=== PATIENT | female | born 1945 | race Caucasian/White ===

== ENCOUNTER 2019-06-30 13:59 | Observation (INO) | payer MEDICARE, BC, SELFPAY | END 2019-07-01 18:20 | disposition home or self-care (01) | PROVIDERS: Admitting Provider Family Medicine; Emergency Provider Emergency Medicine; PCP Family Medicine; Visit Provider Hospitalist | DX: R42 Dizziness and giddiness (principal); I10 Essential (primary) hypertension; E03.9 Hypothyroidism, unspecified; E78.5 Hyperlipidemia, unspecified; G89.29 Other chronic pain; M54.2 Cervicalgia; J45.909 Unspecified asthma, uncomplicated; G47.30 Sleep apnea, unspecified; Z79.82 Long term (current) use of aspirin; Z79.899 Other long term (current) drug therapy | CPT/HCPCS: 36415; 70450; 70553; 71046; 80048; 80053; 80061; 81001; 83036; 84443; 85025; 87086; 93005; 93306; 96360; 96361; 96374; 96375; 99285; A9270; A9577; G0378; J0360; J2405; J7030; J7120 ==

== ENCOUNTER 2020-06-30 10:58 | Observation (INO) | payer MEDICARE, BC, SELFPAY ==
[2020-06-30] VITALS (10 sets, daily range): BP systolic 120–152; BP diastolic 56–88; PULSE 41–102; RESP 16–22; TEMP 36.6–36.8; O2SAT 93–98; BMI 25.4
--- NOTE | ~2020-06-30 | XR_ITS ---
EXAMINATION: XR chest 2V DATE: 06/30/2020 11:50 INDICATION: Dizziness. TECHNIQUE: Frontal and lateral views of the chest were obtained. COMPARISON: Chest 2 views 06/30/2019, CT abdomen and pelvis 07/09/2016 FINDINGS: The chest demonstrates clear lungs without pneumonia, pleural effusion, or pneumothorax. Th e heart size is normal. IMPRESSION: 1. No acute cardiopulmonary disease. Reviewed, dictated and finalized at location A.
--- NOTE | ~2020-06-30 | CT_ITS ---
EXAMINATION: CT brain wo con DATE: 06/30/2020 11:50 INDICATION: Dizziness. TECHNIQUE: Computed tomography (CT) of the head was performed without intravenous contrast. The mA wa s adjusted according to patient size. Iterative reconstruction technique was employed. The dose-lengt h product was 605.33 mGy-cm. COMPARISON: Head CT 06/30/2019, brain MRI 07/01/2019 FINDINGS: There is no intracranial hemorrhage, acute infarction, or abnormal intracranial mass lesion . The ventricles are normal in size. There is mild mucosal thickening in the paranasal sinuses. The m astoid air cells are normal. IMPRESSION: 1. Normal brain. Reviewed, dictated and finalized at location A. IMPRESSION: 1. Normal brain.
--- NOTE | ~2020-06-30 | US_ITS ---
EXAMINATION: US carotid duplex BI DATE: 07/01/2020 09:59 INDICATION: Dizziness. TECHNIQUE: Grayscale, color Doppler, and pulsed Doppler images of the cervical carotid arteries were obtained. The degree of vessel stenosis is placed in one of the following categories: normal, <50%, 5 0-69%, >=70% but less than near-occlusion, near-occlusion, or total occlusion. Note that percent sten osis relative to normal distal artery lumen diameter is indirectly measured from velocity measurement s as described by Vern, et al. Radiology 2003; 229:340-346. COMPARISON: Ultrasound 09/13/2017 FINDINGS: RIGHT: The right common carotid artery (CCA) peak systolic velocity (PSV) is 77 cm/s. The right internal car otid artery (ICA) PSV is 93 cm/s. The right ICA end-diastolic velocity (EDV) is 26 cm/s. The right IC A/CCA PSV ratio is 1.2. Grayscale and color Doppler images yield an estimate of <50% diameter reducti on from plaque in the ICA. There is antegrade flow in the right vertebral artery. LEFT: The left CCA PSV is 84 cm/s. The left ICA PSV is 161 cm/s. The left ICA EDV is 39 cm/s. The left ICA/ CCA PSV ratio is 1.9. Grayscale and color Doppler images yield an estimate of <50% diameter reduction from plaque in the ICA. There is antegrade flow in the left vertebral artery. IMPRESSION: 1. <50% stenosis in the right internal carotid artery. 2. <50% stenosis in the left internal carotid artery. Reviewed, dictated and finalized at location A.
--- NOTE | ~2020-06-30 | MR_ITS ---
EXAMINATION: MR brain/brain stem wo con DATE: 07/01/2020 09:57 INDICATION: Dizziness. TECHNIQUE: Magnetic resonance imaging (MRI) of the brain and brainstem was performed without intraven ous contrast. Sequences included sagittal and axial T1-weighted FSE, axial diffusion-weighted FS EPI, axial T2*-weighted GRE, axial T2-weighted FLAIR Propeller, and axial T2-weighted Propeller. Apparent diffusion coefficient (ADC) maps were created. COMPARISON: Brain MRI 07/01/2019, head CT 06/30/2020 FINDINGS: There is no intracranial hemorrhage, acute infarction, or abnormal intracranial mass lesion . There are a few foci of nonspecific increased T2-weighted signal intensity in the cerebral white ma tter, which is within normal limits for the patient's age. The ventricles are normal in size there is mild mucosal thickening in the paranasal sinuses. There are likely changes of ocular lens replacemen t surgeries. The mastoid air cells are normal. . IMPRESSION: 1. Normal brain. Reviewed, dictated and finalized at location A. IMPRESSION: 1. Normal brain.
--- NOTE | 2020-06-30 11:06 | ECG_ITS ---
Measurements Intervals [place] Rate: 75 P: 58 CA: 144 QRS: 3 QRSD: 97 T: 60 QT: 423 QTc: 473 Interpretive Statements SINUS RHYTHM FREQUENT ATRIAL PREMATURE COMPLEXES ABNORMAL ECG Electronically Signed On 06-30-2020 15:26:31 CDT by Jonh Wan D.O.
--- NOTE | 2020-06-30 11:18 | ED.DIZZY ---
HPI - Dizziness General Chief Complaint: Dizziness <LUCILA Sams Last Filed: 06/30/20 14:57> Stated Complaint: dizziness <LUCILA Sams Last Filed: 06/30/20 14:57> Time Seen by Provider: 06/30/20 11:06 <LUCILA Sams Last Filed: 06/30/20 14:57> Source: patient and family <LUCILA Sams Last Filed: 06/30/20 14:57> Mode of arrival: wheelchair <LUCILA Sams Last Filed: 06/30/20 14:57> Limitations: no limitations <LUCILA Sams Last Filed: 06/30/20 14:57> History of Present Illness HPI Narrative: This is a 74-year-old female that presents the emergency department for dizziness since 2 this morning. Reports she woke up to go to the restroom in the middle of the night. Reports she was having trouble ambulating due to dizziness. Reports she tried to rest in hopes that it would go away. Reports it has been constant. Reports she feels unsteady on her feet. Reports she has had trouble with dizziness in the past and is seen an ENT doctor. Is unsure what her diagnosis was. Denies fever, chest pain, shortness of breath, palpitations, vision changes, vomiting, numbness, or weakness. <LUCILA Sams Last Filed: 06/30/20 14:57> Related Data Home Medications: Home Medications Medication Instructions Recorded Confirmed albuterol sulfate 90 mcg/actuation 1 inhalation INHALATION Q4H 10/27/19 aerosol inhaler atorvastatin 20 mg tablet 20 mg PO DAILY 10/27/19 meclizine 25 mg tablet 25 mg PO BID 10/27/19 metoprolol succinate PO 06/30/20 06/30/20 <LUCILA Sams Last Filed: 06/30/20 14:57> Allergies/Adverse Reactions: Allergies Allergy/AdvReac Type Severity Reaction Status Date / Time adhesive Allergy Mild Rash Verified 06/30/20 11:08 benoxinate Allergy Mild UNKNOWN Verified 06/30/20 11:08 fluorescein Allergy Mild UNKNOWN Verified 06/30/20 11:08 gemfibrozil Allergy Mild PATIENT Verified 06/30/20 11:08 COULDN'T REMEMBER iodine Allergy Mild Swelling Verified 06/30/20 11:08 iodine Allergy Mild Swelling Verified 06/30/20 11:08 latex Allergy Mild Rash Verified 06/30/20 11:08 potassium iodide Allergy Mild Swelling Verified 06/30/20 11:08 potassium iodide Allergy Mild Swelling Verified 06/30/20 11:08 prochlorperazine Allergy Unknown Muscle Verified 06/30/20 11:08 Spasms <Trista Chau PA-C - Last Filed: 06/30/20 14:57> Review of Systems Review of Systems: Narrative: CONSTITUTIONAL: Denies fever EYES: Denies visual changes CARDIOVASCULAR: Denies chest pain, palpitations, or edema. RESPIRATORY: Denies dyspnea. GASTROINTESTINAL: Denies vomiting NEUROLOGIC: Denies numbness, or weakness. <Trista Chau PA-C - Last Filed: 06/30/20 14:57> All systems reviewed & are unremarkable except as noted in HPI and below <Trista Chau PA-C - Last Filed: 06/30/20 14:57> [facility], [facility] Social History Social History: Social History Smoking status: Never smoker Second hand tobacco smoke exposure: No Alcohol intake: never Gender identity (if verbalized by the patient): Female <Trista Chau PA-C - Last Filed: 06/30/20 14:57> Exam Narrative: Exam Narrative: GENERAL: Well-appearing, well-nourished, and in no acute distress. HEAD: Normocephalic, atraumatic. EYES: PERRLA and EOMI. ENT: Nares clear, no rhinorrhea or epistaxis. Mucous membranes moist. Oropharynx without tonsillar hypertrophy exudate or other lesions. Bilateral TMs pearly kumar non-bulging NECK: Supple. No adenopathy or masses. CHEST: Clear to auscultation. No respiratory distress. No wheezes rales or rhonchi HEART: Regular rate and rhythm. No murmur heard. Normal peripheral pulses. EXTREMITIES: Normal range of motion. No edema. Strength equal in bilateral upper and lower extremities (4/5) SKIN: Warm, dry, no rash. NEURO: No focal deficits. Alert and oriented x3. Cr
[2020-06-30] MEDS: SODIUM CHLORIDE 0.9% IV 1,000 ML 999 ML IV CONT (11:46)
[2020-06-30] MEDS: ONDANSETRON INJ 4 MG/2 ML VIAL IV PUSH (11:46)
[2020-06-30] MEDS: MECLIZINE HCL 25 MG TABLET PO (11:46)
[2020-06-30 11:47] LABS: Basophils Absolute Auto 0.1 K/mm3 (0.0-0.1); Basophils Percent Auto 0.8 % (0.2-1.2); Eosinophils Absolute Auto 0.3 K/mm3 (0-0.3); Eosinophils Percent Auto 3.9 % (0-4.4); Hematocrit 35.8 % (37.0-47.0); Hemoglobin 11.8 g/dL (12.0-15.0); Immature Granulocyte Absolute 0.04 K/mm3 (0.00-0.031); Immature Granulocyte Percent A 0.6 % (0-0.5); Lymphocytes Absolute Auto 1.94 K/mm3 (0.9-3.2); Lymphocytes Percent Auto 26.7 % (18.3-44.2); Mean Corpuscular Hemoglobin 32.2 pg (26-34); Mean Corpuscular Volume 97.8 fl (80-100); Mean Platelet Volume 11.9 fl (7.4-10.4); Monocytes Absolute Auto 0.6 K/mm3 (0.1-0.6); Neutrophils Absolute Auto 4.4 K/mm3 (1.3-6.7); Platelet Count Result 266 k/mm3 (150-375); Red Blood Count 3.66 M/mm3 (4.2-5.4); White Blood Count 7.3 K/mm3 (4.5-10.0)
[2020-06-30 12:00] LABS: Alanine Aminotransferase 18 U/L (4-35); Albumin Level 4.5 g/dL (3.5-5.1); Alkaline Phosphatase 62 U/L (38-126); Anion Gap 7 mmol/L (8-16); Aspartate Amino Transferase 27 U/L (14-36); Bilirubin,Total 0.4 mg/dL (0.2-1.3); Blood Urea Nitrogen 22 mg/dL (7-17); Calcium 9.2 mg/dL (8.4-10.2); Carbon Dioxide 25 mmol/L (22-30); Chloride 104 mmol/L (98-107); Estimated CRCL calculation 34 ml/min; Estimated Glomerular Filt Rate 48; Glucose 126 mg/dL (65-105); Potassium 4.5 mmol/L (3.4-5.0); Sodium 136 mmol/L (137-145)
[2020-06-30 13:00] LABS: Add Urine Microscopic? NO; Appearance Urine Clear (Clear); Bilirubin Urine Negative (Negative); Blood Urine Negative (Negative); Color Urine Straw (Yellow); Glucose Urine UA Negative (Negative); Ketones Urine Negative (Negative); Leukocyte Esterase Ur Negative LEU/UL (Negative); Nitrate Urine Negative (Negative); Protein Urine Negative (Negative); Urobilinogen Urine Negative mg/dL (<2.0)
--- NOTE | 2020-06-30 15:45 | PC.NURSE ---
This patient, Madeline Mancera, was admitted to Medical Room 340-01. Patient/family oriented to hospital policies and general routines including ID bracelet, bed and alarms, visiting hours, pain management, procedures, bathroom and other care routines, personal items, smoking policy, room service/diet, and visiting hours. Valuables list has been completed. Information on how to activate the Rapid Response Team has been discussed. Patient/Family are encouraged to report perceived risks to care and to ask questions if they do not understand what they are told or what they should do.
--- NOTE | 2020-06-30 21:39 | PM.IMHP ---
H&P: HPI History of Present Illness Date/Time: 06/30/20 21:39 Chief complaint: Dizziness Narrative: Madeline Mancera is a 74 year old female Who came to the emergency room with complaints of dizziness that started about 2:00 a.m. this morning. The patient stated that she got up to go to the restroom in the middle and I and was having problem walking down the [place]. She said she is bouncing off the jerry. She thought she would just go back to sleep and tried to sleep it off. The patient had the exact same thing exactly 1 year ago today and had a full workup with her heart and I MRI which was negative at that time. The patient stated that she went to ENT after that and they clean out her ears was some hot air and that seem to work for her for the duration of this time. She stated that she had no problems until today. She stated that she has not had any new medications for at least the last month and a half. She said she did have some new medication that was started about a month and half ago and did seem to have any problems with that. She has no focal weakness no difficulty swallowing or difficulty in talking. The patient stated that her dizziness is worse whenever she gets up and walks are she moves her head. CT of the brain was found to be negative. The patient was given IV fluids, IV Zofran, Ativan, and IV Valium. The patient stated that the Valium work the best. She said when she is laying there and resting she does avidly problems is when she moves her head or gets up and walks that she starts to feel dizzy again. Chest x-ray was negative. Her labs were unremarkable except for slightly low hemoglobin of 11.8. Assessment approximately 45 minutes with the patient. Date of service is 06/30/2020. Review of Systems Review of Systems: All systems reviewed & are unremarkable except as noted in HPI and below Constitutional: Constitutional: Reports as per HPI and Reports no additional constitutional complaints Eyes: Eyes: Reports as per HPI and Reports no additional eye complaints ENT: Reports system reviewed and no additional complaints, except as documented and Reports Normal hearing present Cardiovascular: Cardiovascular: Reports no additional cardiovascular complaints Respiratory: Respiratory: Reports no additional respiratory complaints and Reports no additional respiratory complaints Gastrointestinal: Gastrointestinal: Reports as per HPI and Reports no additional gastrointestinal complaints Musculoskeletal: Musculoskeletal: Reports no additional musculoskeletal complaints Integumentary/Breasts: Skin/Breast: Reports system reviewed and no additional complaints, except as docu and Reports as per HPI Neurologic: Reports system reviewed and no additional complaints, except as documented, Reports as per HPI and Reports Normal hearing present Psychiatric: Psychiatric: Reports no additional psychiatric complaints and Reports as per HPI Endocrine: Endocrine: Reports no additional endocrine complaints Hematologic/Lymphatic: Hematologic/Lymphatic: Reports no additional hematologic/lymphatic complaints Allergic/Immunologic: Allergic/Immunologic: Reports no additional allergic/immunologic complaints [facility] Past Medical History Medical History (Updated 06/30/20 @ 22:00 by Addis Acevedo NP) Asthma Depression with anxiety Hyperlipidemia Hypertension Hypothyroidism Lumbar disc disease Normal colonoscopy (~2007) Obstructive sleep apnea Pre-diabetes Presence of neurostimulator in her back in the past. Sleep apnea this not use a CPAP. Ulcer Surgical History Surgical History (Updated 06/30/20 @ 21:47 by Addis Acevedo NP) H/O cataract extraction 2015 H/O: hysterectomy History of bladder suspension procedure x5 History of lumpectomy Family History Family History (Updated 06/30/20 @ 21:51 by Addis Acevedo NP) Mother Asthma Cerebrovascular accident Congestive heart failure Sibling Diabetes mellitus Other
[2020-06-30] MEDS: MECLIZINE HCL 6.25 MG TABLET PO (22:55)
[2020-07-01] VITALS: PULSE 59
--- NOTE | 2020-07-01 | ECHO_ITS ---
Patient Info Name: Madeline Mancera Age: 74 years : 1945 Gender: Female Ht: 64 in Wt: 148 lbs BSA: 1.75 m2 HR: 55 bpm BP: 138 / 53 mmHg Heart Rhythm: Bradycardia Technical Quality: Good Exam Date: 07/01/2020 11:07 AM Exam Location: [facility] Patient Status: Inpatient Admit Date: 06/30/2020 Staff Ordering Physician: Addis Acevedo NP Cell Maker: Lamont Grace RDCS Attending Provider: Pérez Mosley PA-C Referring Physician: Curtis KRAUS; Exam Type: CA echo doppler color flow Study Info Indications R42 - Dizziness and giddiness Complete two-dimensional, color flow and Doppler transthoracic echocardiogram is performed. Strain analysis performed. History/Risk Factors Dizziness; HTN. Summary 1. Left ventricular chamber dimension is normal. 2. Left ventricular systolic function is normal, estimated at 55-60%. 3. There is mild aortic valve sclerosis. 4. Compared to examination of June of 2019 there are no differences. Left Ventricle Left ventricular chamber dimension is normal. Left ventricular systolic function is normal, estimated at 55-60%. The left ventricular diastolic function is normal. Right Ventricle Right ventricular chamber dimension is normal. Left Atria Left atrial chamber dimension is normal. Right Atria Right atrial chamber dimension is normal. Aortic Valve The aortic valve is trileaflet. There is mild aortic valve sclerosis. Pulmonic Valve The pulmonic valve is normal. Mitral Valve The mitral valve has normal leaflets. Tricuspid Valve The tricuspid valve leaflets are normal. Pericardium/Pleural The pericardium appears normal. Aorta The aortic root size at the sinus of Valsalva is normal. Left Ventricular Outflow Tract Name Value Normal LVOT 2D LVOT Diameter 1.9 cm LVOT Doppler LVOT Peak Gradient 6 mmHg LVOT Mean Gradient 3 mmHg LVOT VTI 28 cm LVOT VTI/AV VTI Ratio 0.9 LVOT Stroke Volume 78 ml LVOT CO 4.0 l/min LVOT CI 2.3 l/min/m2 Mitral Valve Name Value Normal MV Doppler MV Decel Patrick 220 cm/s2 MV PHT 109 ms MV Area (PHT) 2.0 cm2 4.0-5.0 MV Diastolic Function MV E Peak Velocity 83 cm/s MV A Peak Velocity 94 cm/s MV E/A 0.9 MV Decel Time 375 ms MV Annular TDI MV E/e' (Sep
[2020-07-01 04:00] VITALS: PULSE 43
[2020-07-01 05:59] VITALS: BP 146/64; PULSE 50; RESP 16; TEMP 36.3; O2SAT 100
[2020-07-01 06:08] VITALS: BP 146/64
[2020-07-01 06:09] VITALS: BP 138/108; BP 138/53
[2020-07-01 06:09] LABS: Basophils Percent Auto 0.6 % (0.2-1.2); Eosinophils Absolute Auto 0.5 K/mm3 (0-0.3); Eosinophils Percent Auto 6.8 % (0-4.4); Hematocrit 33.7 % (37.0-47.0); Immature Granulocyte Absolute 0.02 K/mm3 (0.00-0.031); Immature Granulocyte Percent A 0.3 % (0-0.5); Lymphocytes Absolute Auto 2.84 K/mm3 (0.9-3.2); Lymphocytes Percent Auto 41.3 % (18.3-44.2); Mean Corpuscular HGB Conc 32.6 g/dl (32-36); Mean Corpuscular Hemoglobin 32.4 pg (26-34); Mean Corpuscular Volume 99.4 fl (80-100); Mean Platelet Volume 11.5 fl (7.4-10.4); Monocytes Absolute Auto 0.6 K/mm3 (0.1-0.6); Monocytes Percent Auto 8.6 % (2.6-8.5); Neutrophils Absolute Auto 2.9 K/mm3 (1.3-6.7); Neutrophils Percent Auto 42.4 % (45.5-73.1); Platelet Count Result 217 k/mm3 (150-375); Red Blood Count 3.39 M/mm3 (4.2-5.4); White Blood Count 6.9 K/mm3 (4.5-10.0)
[2020-07-01] MEDS: LEVOTHYROXINE SODIUM 88 MCG TABLET PO (06:11)
[2020-07-01 06:23] LABS: Alanine Aminotransferase 14 U/L (4-35); Albumin Level 3.7 g/dL (3.5-5.1); Alkaline Phosphatase 48 U/L (38-126); Anion Gap 3 mmol/L (8-16); Aspartate Amino Transferase 22 U/L (14-36); Bilirubin,Total 0.3 mg/dL (0.2-1.3); Blood Urea Nitrogen 17 mg/dL (7-17); Calcium 8.9 mg/dL (8.4-10.2); Carbon Dioxide 29 mmol/L (22-30); Chloride 108 mmol/L (98-107); Estimated CRCL calculation 34 ml/min; Estimated Glomerular Filt Rate 48; Glucose 95 mg/dL (65-105); Sodium 140 mmol/L (137-145)
[2020-07-01 07:00] LABS: Thyroid Stimulating Hormone Reflex 0.494 uIU/mL (0.465-4.68)
[2020-07-01 08:00] VITALS: PULSE 59
[2020-07-01] MEDS: lisinopriL 10 MG TABLET PO (08:24)
[2020-07-01] MEDS: ASPIRIN 81 MG ENTERIC TABLET PO (08:24)
[2020-07-01] MEDS: FENOFIBRATE,MICRONIZED 48 MG TABLET PO (08:24)
[2020-07-01] MEDS: valACYclovir HCL 500 MG TABLET PO (08:25)
[2020-07-01] MEDS: MECLIZINE HCL 6.25 MG TABLET PO ×2 (08:25→12:06)
[2020-07-01] MEDS: MONTELUKAST SODIUM 10 MG TABLET PO (08:25)
[2020-07-01] MEDS: MAGNESIUM OXIDE 400 MG TABLET BY MOUTH (08:25)
--- NOTE | 2020-07-01 11:51 | PM.DS ---
DS: Admitting Diagnosis Admitting Diagnosis Admitting Diagnosis: BPPV DS: Discharge Diagnosis Discharge Diagnosis (1) BPPV (benign paroxysmal positional vertigo): Code(s): H81.10 - Benign paroxysmal vertigo, unspecified ear Status: Acute Assessment and Plan: Patient states she is feeling better today after meclizine. She notes that she had this problem exactly 1 year ago and had some hot air blown into her ears by ENT and that seemed to resolve it until now. MRI and carotid dopplers unremarkable. Echo pending. Telemetry shows sinus bradycardia overnight. Orthostatics unremarkable. Patient comfortable with discharge home with follow up with PCP and/or her ENT she saw last year. D/c home today; instructed no driving until she sees her PCP F/u with PCP and ENT if applicable Will place referral to Vertigo PT Meclizine for 1 week as needed (2) Hypertension: Qualifiers: Hypertension type: essential hypertension Qualified Code(s): I10 - Essential (primary) hypertension Code(s): I10 - Essential (primary) hypertension Status: Chronic Assessment and Plan: BP 130s sys this morning Continue with patient's home dose of lisinopril. (3) Hyperlipidemia: Qualifiers: Hyperlipidemia type: mixed hyperlipidemia Qualified Code(s): E78.2 - Mixed hyperlipidemia Code(s): E78.5 - Hyperlipidemia, unspecified Status: Chronic Assessment and Plan: Continue with fenofibrate. (4) Asthma: Code(s): J45.909 - Unspecified asthma, uncomplicated Status: Chronic Assessment and Plan: No acute issues Continue with her home inhaler. Continue with Singulair (5) Obstructive sleep apnea: Code(s): G47.33 - Obstructive sleep apnea (adult) (pediatric) Status: Acute Assessment and Plan: Patient has a CPAP machine but is noncompliant at home Educated patient on importance of CPAP compliance; instructed her to follow up with her PCP if she needs to have another mask fitted or if there are any other options (6) Hypothyroidism: Qualifiers: Hypothyroidism type: unspecified Qualified Code(s): E03.9 - Hypothyroidism, unspecified Code(s): E03.9 - Hypothyroidism, unspecified Status: Chronic Assessment and Plan: TSH WNL continue with levothyroxine DS: Summary Hospital Course Reason for hospitalization: BPPV, cva r/o Hospital Course: Patient is a 74 yo F with history of asthma, depression with anxiety, HLD, HTN, and TONIA who presented to the ED on 06/30 with complaints of dizziness since 2:00 am that morning. While in the ED, Ct of the brain was normal, unfortunately her dizziness and unsteady gait continued despite IV fluids, meclizine, Zofran and Valium. Patient admitted under this setting. Please see H&P for further details. Presenting VS: Temp Pulse Resp BP Pulse Ox 98.2 F 81 17 122/71 97 06/30/20 11:04 06/30/20 11:04 06/30/20 11:04 06/30/20 11:04 06/30/20 11:04 Presenting Pertinent labs: Unremarkable CBC, chemistry, UA Micro: none Imaging: Head CT 06/30/20 12:00 IMPRESSION: 1. Normal brain. Chest X-Ray 06/30/20 12:01 IMPRESSION: 1. No acute cardiopulmonary disease. Brain MRI 07/01/20 10:02 IMPRESSION: 1. Normal brain. Carotid Doppler Study 07/01/20 10:06 IMPRESSION: 1. <50% stenosis in the right internal carotid artery. 2. <50% stenosis in the left internal carotid artery. Echo 07/01/20 Summary 1. Left ventricular chamber dimension is normal. 2. Left ventricular systolic function is normal, estimated at 55-60%. 3. There is mild aortic valve sclerosis. 4. Compared to examination of June of 2019 there are no differences. ECG: Interpretive Statements SINUS RHYTHM FREQUENT ATRIAL PREMATU
--- NOTE | 2020-07-01 12:07 | PCOTNOTE ---
Ot evaluation attempted OT evaluation. Patient declined stating she does not feel it is necessary at this time. OT did consult with PT who reports pt has vestibular therapy needs but is independent with mobility. Patient had several questions regarding vestibular PT, pt educated that she can follow up with outpatient therapy anywhere she would like but to verify that vestibular therapy is offered before the appointment. OT evaluation not completed as patient declined.
== END 2020-07-01 14:00 | disposition home or self-care (01) ==
LOC: ANHED 14:54 → ANH3MED 15:27
PROVIDERS: Nurse Practitioner; Physician Assistant; Admitting Provider Family Medicine; Emergency Provider Emergency Medicine; PCP Family Medicine; Visit Provider Physician Assistant
DX: H81.10 Benign paroxysmal vertigo, unspecified ear (principal); I10 Essential (primary) hypertension; E78.2 Mixed hyperlipidemia; J45.909 Unspecified asthma, uncomplicated; G47.33 Obstructive sleep apnea (adult) (pediatric); Z91.19 Patient's noncompliance with other medical treatment and regimen; E03.9 Hypothyroidism, unspecified; F41.8 Other specified anxiety disorders; Z79.82 Long term (current) use of aspirin; Z79.899 Other long term (current) drug therapy
CPT/HCPCS: 36415; 70450; 70551; 71046; 80053; 81003; 83735; 84443; 85025; 93005; 93306; 93880; 96374; 96375; 97161; 99285; A9270; G0378; J2405; J3360; J7030

== ENCOUNTER → 2021-03-19 11:41 | Outpatient (CLI) | payer MEDICARE, BC, SELFPAY ==
--- NOTE | ~2021-03-19 | MM_ITS ---
EXAMINATION: MM screening ken BI w jax HISTORY: Screening TECHNIQUE: Craniocaudal and mediolateral oblique 3-D tomosynthesis images were obtained and synthetic 2-D images were generated. CAD analysis was submitted and interpreted. COMPARISON: Comparison to multiple prior studies sequentially, with oldest reviewed study dated 05/04. BREAST PARENCHYMAL COMPOSITION: There are scattered areas of fibroglandular density. FINDINGS: There is no evidence of suspicious mass, calcification, or architectural distortion to sugg est malignancy in either breast. There has been no suspicious interval change. IMPRESSION: 1. No mammographic evidence of malignancy. 2. Recommend routine screening mammography in one year. BI-RADS Category 1: Negative Reviewed, dictated and finalized at location A.
== END ==
PROVIDERS: PCP Family Medicine; Visit Provider Obstetrics & Gynecology
DX: Z12.31 Encounter for screening mammogram for malignant neoplasm of breast (principal)
CPT/HCPCS: 77063; 77067

== ENCOUNTER 2021-04-07 11:49 | Outpatient (CLI) | payer MEDICARE, BC, SELFPAY ==
--- NOTE | ~2021-04-07 | XR_ITS ---
XR chest 2V DATE: 04/07/2021 12:07 INDICATION: Cough TECHNIQUE: PA and lateral views COMPARISON: 06/30/2020 AP and lateral chest FINDINGS: Normal heart size. Mild aortic unfolding. No hilar or mediastinal enlargement. No pulmonary infiltrate or consolidation, pleural effusion or pulmonary vascular congestion or pneumo thorax. Included skeletal structures are unremarkable other than minimal dextroscoliosis of the thora cic spine. IMPRESSION: No active cardiopulmonary disease Reviewed, dictated and finalized at location A.
== END 2021-04-07 11:50 | disposition home or self-care (01) ==
LOC: ANHIMG 11:56
PROVIDERS: PCP Family Medicine; Visit Provider Family Medicine
DX: R05 Cough (principal)
CPT/HCPCS: 71046

== ENCOUNTER → 2021-07-31 15:03 | Outpatient (CLI) | payer MEDICARE, BC, SELFPAY ==
--- NOTE | ~2021-07-31 | MR_ITS ---
EXAMINATION: MR foot LT wo con DATE: 07/31/2021 15:57 INDICATION: Spontaneous rupture of the tendons at the left foot. Diffuse left foot pain post injury 9 months prior. TECHNIQUE: Magnetic resonance imaging (MRI) of the left foot was performed without intravenous contra st. Sequences included sagittal T1-weighted FSE, sagittal fluid sensitive FSE STIR, coronal PD-weight ed FS FSE, coronal T1-weighted FSE, axial PD-weighted FS FSE, and axial PD-weighted FSE. COMPARISON: None FINDINGS: Bone alignment is normal. Moderate osteoarthritis at the second tarsal metatarsal joint with high-gra de chondromalacia with small regions of subarticular edema at both sides of the joint space. Addition al mild polyarticular osteoarthritis at the first metatarsophalangeal and multiple tarsometatarsal an d interphalangeal joints. Additional small region of high-grade chondral malacia at the dorsal base o f the fourth metatarsal. Otherwise normal marrow signal with no fracture or pathologic marrow replaci ng process. The stabilizing ligaments at the ankle are normal including the deep and superficial delt oid ligaments, the anterior and posterior inferior tibiofibular, anterior and posterior talofibular a nd calcaneofibular ligaments. The spring ligament complex, Lisfranc ligament complex, bifurcate ligam ent and collateral ligament complex at the metatarsophalangeal and interphalangeal joints are also no rmal. The Achilles, medial and lateral sided flexor as well as the extensor tendons of the foot and a nkle are normal. Small plantar calcaneal spur at the origin of the plantar aponeurosis. Mild enthesop athy with minimal increased intrasubstance signal at the acromial origin of the central component of the plantar aponeurosis. No surrounding edema to suggest an acute plantar fasciitis. The intrinsic mu sculature of the foot is unremarkable. The marker indicating the site of maximal pain is located plan tar to the midfoot. There is a broad flat ganglion cyst which appears to arise from the dorsal aspect of the talonavicular joint overlying the dorsolateral aspect of the head of the talus which measures 2.2 x 2.3 cm in width and up to 4 mm in maximal thickness. Otherwise physiologic amount fluid in the joint spaces. IMPRESSION: 1. Polyarticular osteoarthritis, moderate severity at the second tarsal metatarsal joint and otherwis e mild at multiple additional joints in the mid and forefoot. 2. Normal ligaments and tendons throughout the left foot and ankle. 3. Chronic mild plantar enthesopathy without findings of acute plantar fasciitis. 4. Broad flat ganglion cyst at the dorsolateral hindfoot which appears to rise from the talonavicular joint. Reviewed, dictated and finalized at location A. IMPRESSION: 1. Polyarticular osteoarthritis, moderate severity at the second tarsal metatar katey joint and otherwise mild at multiple additional joints in the mid and foref oot. 2. Normal ligaments and tendons throughout the left foot and ankle. 3. Chronic mild plantar enthesopathy without findings of acute plantar fasciiti s. 4. Broad flat ganglion cyst at the dorsolateral hindfoot which appears to rise from the talonavicular joint.
== END ==
PROVIDERS: Visit Provider Podiatrist Foot & Ankle Surgery
DX: M66.879 Spontaneous rupture of other tendons, unspecified ankle and foot (principal); M19.072 Primary osteoarthritis, left ankle and foot; M77.32 Calcaneal spur, left foot
CPT/HCPCS: 73718

== ENCOUNTER → 2022-01-27 11:57 | Outpatient (CLI) | payer MEDICARE, BC, SELFPAY ==
--- NOTE | ~2022-01-27 | XR_ITS ---
EXAMINATION: XR abdomen obstructive series DATE: 01/27/2022 12:29 INDICATION: Abdominal pain TECHNIQUE: Supine and upright views of the abdomen. FINDINGS: 10/26/2011 The visualized lung parenchyma is normal.. There is a nonobstructive bowel gas pattern. Gas and stool are seen throughout the colon to the level of the rectum. There is no free air. There are surgical changes in the pelvis. Levoscoliosis of the lumbar spine centered at L2. IMPRESSION: 1. No acute abdominal abnormality. Reviewed, dictated and finalized at location B.
== END ==
PROVIDERS: PCP Family Medicine; Visit Provider Family Medicine
DX: R10.9 Unspecified abdominal pain (principal); M41.9 Scoliosis, unspecified
CPT/HCPCS: 74019

== ENCOUNTER 2022-11-05 13:16 | Outpatient (CLI) | payer MEDICARE, BC, SELFPAY ==
--- NOTE | ~2022-11-05 | MM_ITS ---
EXAMINATION: MM screening ken BI w jax HISTORY: Screening TECHNIQUE: Craniocaudal and mediolateral oblique 3-D tomosynthesis images were obtained and synthetic 2-D images were generated. CAD analysis was submitted and interpreted. COMPARISON: Comparison to multiple prior studies sequentially, with oldest reviewed study dated 05/04. BREAST PARENCHYMAL COMPOSITION: There are scattered areas of fibroglandular density. FINDINGS: There is no evidence of suspicious mass, calcification, or architectural distortion to sugg est malignancy in either breast. There has been no suspicious interval change. IMPRESSION: 1. No mammographic evidence of malignancy. 2. Recommend routine screening mammography in one year. BI-RADS Category 1: Negative Reviewed, dictated and finalized at location A. PATIONAL PSYCHOLOGIST
== END 2022-11-05 13:17 | disposition home or self-care (01) ==
PROVIDERS: PCP Family Medicine; Visit Provider Obstetrics & Gynecology
DX: Z12.31 Encounter for screening mammogram for malignant neoplasm of breast (principal)
CPT/HCPCS: 77063; 77067

== ENCOUNTER 2023-03-30 10:08 | Outpatient (CLI) | payer MEDICARE, BC, SELFPAY ==
--- NOTE | ~2023-03-30 | DEXA_ITS ---
Bone Density Report Name: BRIAN GARVIN Age: 77 Sex: Female Ethnicity: White Date of : 1945 Indication: postmenopausal; screening for osteoporosis; height loss; hysterectomy; Referring Provider: LUL KAUFMAN Study: Bone densitometry was performed. Exam Date: March 30, 2023 Accession number: [id number] Bone Density: Region BMD T-score Z-score Classification AP Spine(L1-L4) 1.289 2.2 4.8 Normal Femoral Neck (Left) 0.856 0.1 2.3 Normal Total Hip (Left) 0.929 -0.1 1.9 Normal Femoral Neck (Right) 0.857 0.1 2.3 Normal Total Hip (Right) 0.908 -0.3 1.7 Normal Total Hip Mean 0.919 -0.2 1.8 Normal World Health Organization criteria for BMD impression classify patients as: Normal (T-score at or above -1.0), Osteopenia (T-score between -1.0 and -2.5), or Osteoporosis (T-score at or below -2.5). 10-year Fracture Risk: FRAX not reported because: All T-scores for Spine Total, Hip Total, Femoral Neck at or above -1.0 Previous Exams: Region Exam Age BMD T-score BMD Change BMD Change Date g/cm2 vs Baseline vs Previous AP Spine (L1-L4) 03/30/2023 77 1.289 2.2 -0.047 (-3.5%) -0.047 (-3.5%) 06/15/2019 73 1.336 2.6 Total Hip(Left) 03/30/2023 77 0.929 -0.1 -0.079 (-7.8%) -0.079 (-7.8%) 06/15/2019 73 1.008 0.5 Total Hip(Right) 03/30/2023 77 0.908 -0.3 -0.139 (-13.3% -0.139 (-13.3% 06/15/2019 73 1.047 0.9 *Denotes significance at 95% confidence level, LSC for AP Spine = 0.022 g/cm2, LSC for Total Hip = 0.027 g/cm2 # Denotes dissimilar scan types or analysis methods Clinical Information Provided by Patient: Has used the following medications: HRT (i.e. estrogen/hormone therapy), Vitamin D, Calcium Has the following medical conditions: Hysterectomy Patient maximum height was 65 Menopause Age: 49 No regular weight bearing exercise Does not regularly consume dairy products Onset of menses at age 11 Number of children 3 Impression: The patient has normal bone mass. No significant bone loss was observed. Discussion: BONE DENSITY IS ABOVE THE MINIMUM DESIRABLE LEVEL AT ALL SKELETAL SITES TESTED. This patient?s bone mineral density is above the minimum desirable level (T-score -1.0 or better) at all sites measured. The patient should follow a healthful lifestyle (good nutrition with adequate calcium and vitamin D, and appropriate weight-bearing exercise). Follow-Up: Consider repeating this study in 5 years or sooner
== END 2023-03-30 10:09 | disposition home or self-care (01) ==
PROVIDERS: PCP Family Medicine; Visit Provider Family Medicine
DX: Z78.0 Asymptomatic menopausal state (principal)
CPT/HCPCS: 77080

== ENCOUNTER 2023-11-11 08:58 | Outpatient (CLI) | payer MEDICARE, BC, SELFPAY ==
--- NOTE | ~2023-11-11 | MM_ITS ---
EXAMINATION: MM screening ken BI w jax HISTORY: Screening mammogram TECHNIQUE: Craniocaudal and mediolateral oblique 3-D tomosynthesis images were obtained and synthetic 2-D images were generated. CAD analysis was submitted and interpreted. COMPARISON: 03/19/2021 bilateral screening mammogram 06/15/2019 bilateral diagnostic mammogram BREAST PARENCHYMAL COMPOSITION: There are scattered areas of fibroglandular density. FINDINGS: There is no evidence of suspicious mass, calcification, or architectural distortion to sugg est malignancy in either breast. There has been no suspicious interval change. IMPRESSION: 1. No mammographic evidence of malignancy. 2. Recommend routine screening mammography in one year. BI-RADS Category 1: Negative Reviewed, dictated and finalized at location A. ASTRUCTURE SECURITY ARCHITECT
== END 2023-11-11 08:59 | disposition home or self-care (01) ==
LOC: ANHIMG 08:59
PROVIDERS: PCP Family Medicine; Visit Provider Obstetrics & Gynecology
DX: Z12.31 Encounter for screening mammogram for malignant neoplasm of breast (principal)
CPT/HCPCS: 77063; 77067

== ENCOUNTER 2023-12-23 09:34 | Outpatient (CLI) | payer MEDICARE, BC, SELFPAY ==
--- NOTE | ~2023-12-23 | MR_ITS ---
MRI of the lumbar spine Clinical History: Back pain Technique: Axial T2-weighted images, and sagittal T1-weighted, T2-weighted, and T2 fat-sat images wer e acquired. Findings: There is no fracture or subluxation of the lumbar spine. No suspicious bone marrow signal a bnormality seen. At L1-L2, there is mild diffuse disc bulge with advanced facet arthropathy. No central canal stenosis or definite neural foraminal narrowing. At L2-L3, there is severe degenerative disc narrowing. There is mild disc bulge with moderate facet a rthropathy. No central canal stenosis. There is moderate right neural foraminal narrowing. Left neura l foramen preserved. At L3-L4, there is disc bulge and advanced facet arthropathy. No central canal stenosis. There is mil d bilateral neural foraminal narrowing. At L4-L5, there is diffuse disc bulge and severe facet arthropathy. There is mild central canal steno sis. There is moderate bilateral neural foraminal narrowing. At L5-S1, there is severe degenerative disc narrowing. There is mild disc bulge with advanced facet a rthropathy. There is severe bilateral neural foraminal narrowing. Paravertebral soft tissues are unremarkable. Impression: Advanced degenerative spondylosis at L5-S1. Additional mild to moderate degenerative changes, as above. Reviewed, dictated and finalized at [facility]. ENSATION/BENEFITS SPECIALIST Impression: Advanced degenerative spondylosis at L5-S1. Additional mild to moderate degenerative changes, as above.
== END 2023-12-23 09:35 | disposition home or self-care (01) ==
LOC: ANHIMG 09:35
PROVIDERS: PCP Family Medicine; Visit Provider Family Medicine
DX: M51.9 Unspecified thoracic, thoracolumbar and lumbosacral intervertebral disc disorder (principal); M47.897 Other spondylosis, lumbosacral region
CPT/HCPCS: 72148

== ENCOUNTER 2024-05-19 07:16 | Outpatient (CLI) | payer MEDICARE, BC, SELFPAY ==
--- NOTE | ~2024-05-19 | CT_ITS ---
CT of the Abdomen and Pelvis: Indication: Abdominal pain Technique: 2.5 mm axial scans were obtained through the abdomen and pelvis following intravenous adm inistration of 100 cc of Omnipaque 350. Dose reduction technique was used on this scan by utilizing a utomated exposure control and iterative reconstruction technique. The dose-length product (DLP) was 3 38.26 mGy-cm. Findings: Scans through the lung bases are unremarkable. The liver, spleen, pancreas, gallbladder, adrenals and kidneys are within normal limits. No evidence of aortic aneurysm. No lymphadenopathy. No bowel obstruction or bowel wall thickening. There is no evidence to suggest acute appendicitis. Th ere is a 6 mm right lower quadrant lymph node or peritoneal nodule (axial image 100), nonspecific. Images through the pelvis were performed. Urinary bladder unremarkable. Status post hysterectomy. No pelvic mass seen. There is small amount of pelvic ascites. Impression: Small amount of pelvic ascites, of uncertain etiology. 6 mm right lower quadrant lymph node versus peritoneal nodule, nonspecific. Reviewed, dictated and finalized at [facility]. Impression: Small amount of pelvic ascites, of uncertain etiology. 6 mm right lower quadrant lymph node versus peritoneal nodule, nonspecific.
== END 2024-05-19 07:17 | disposition home or self-care (01) ==
LOC: ANHIMG 07:21
PROVIDERS: PCP Family Medicine; Visit Provider Family Medicine
DX: R10.9 Unspecified abdominal pain (principal); R19.4 Change in bowel habit
CPT/HCPCS: 74177; Q9967

== ENCOUNTER 2024-10-27 12:07 | Outpatient (CLI) | payer MEDICARE, BC, SELFPAY ==
--- OUTSIDE RECORDS SUMMARY | 2024-10-27 12:53 | XMS_ITS | Continuity of Care Document ---
Author Organization [facility] Address [address] [place] [address] Phone Care Team Providers Care Masonry Instructor Name Role Phone Unavailable Unavailable Unavailable Advance Directives Directive Yes / No Effective Date File Name No Information Encounters Encounter Description Practice Location Reason(s) For Visit Diagnoses Date Provider Providers Copied on Encounter [facility], [address], [place], [place], [id number], [place] tel:[phone] [facility] LUMBAR DISC DISPLACEMENTOTH ADV EFF MED/BIO SUB Oct-0 2-200 4 No Information Family History Family Member Type Diagnosis Age At Onset No Information Payers Payer name Insurance type Covered democrat ID Authoriza tion(s) No Information Social History Type Description Quantity Date Captured Comments Sex Female Smoking Status No Information Chief Complaint And Reason For Visit No Information Reason For Referral Reason For Referral No Information History Of Present Illness Encounter Date Complaint History Of Prese nt Illness No Information Functional Status Date Functional Assessmen t No Information Instructions Date Instruction Additional Infor mation No Information Assessments Type Assessment Date No Information Patient Care Teams Name Effective Dates (start - stop) Status Members No Information
--- OUTSIDE RECORDS SUMMARY | 2024-10-27 12:53 | XMS_ITS | Continuity of Care Document ---
Author Organization [email or web address] [place] [address] [facility] [address] [place] [phone] Phone Care Team Providers Care Corporate Quality Engineer Name Role Phone Geetha Macario OD Unavailable Unavailable Allergies, Adverse Reactions, Alerts Substance Reaction Status Criticality FLUORESCEIN SODIUM Active No Inform ation BENOXINATE HCL Active No Informatio n IODINE Active No Information PROCHLORPERAZINE MALEATE Active No Information PROCHLORPERAZINE EDISYLATE Active N o Information prochlorperazine Active No Informat ion Medications Medication Instructions Dosage Effective Dates (start - stop) Status Comments Miebo 100 % eye drops instill 1 drop by ophthalmic route 2 times every day into affected eye(s) 1 drop - Active iVizia (PF) 0.5 % eye drops instill 1 drop by ophthalmic route 2 times every day 1 drop - Active Xiidra 5 % eye drops in a dropperette instill 1 drop by ophthalmic route 2 times every day into both eyes approximately 12 hours apart 1.00 drop - Active VITAMIN B-12 (unknown strength) chew 1 gummy daily Not Available - Active lisinopril 10 mg ORAL TABLET take one tablet daily - Active Synthroid 88 mcg tablet take 1 tablet by oral route every day 88 MCG - Active fenofibrate 40 mg tablet take 2 tablet by oral route every day 80 MG - Active metoprolol tartrate 25 mg tablet take 1 tablet by oral route 2 times every day 25 MG - Active valacyclovir 500 mg tablet take 1 tablet by oral route every day 500 MG - Active hydrochlorothiazide 12.5 mg tablet take 1 tablet by oral route every day 12.5 MG - Active Vitamin D3 10 mcg (400 unit) capsule take 1 by oral route every day 1 - Active Vitamin C 500 mg capsule,extended release take 1 capsule by oral route every day 1 capsule - Active Medical Marijuana INHALATION MISCELL take one tablet daily - Active Miebo 100 % eye drops instill 1 drop by ophthalmic route 4 times every day into affected eye(s) 1.00 drop - No Longer Active Serum Tears OPHTHALMIC DROPS instill 1 drop 3-4 times a day in each eye - No Longer Active ivizia OPHTHALMIC BOTTLE instill 1 drop into each eye as needed - No Longer Active aspirin 81 mg tablet,delayed release take 1 tablet by oral route every day 81 MG - No Longer Active Procedures Procedure Date Office/outpatient Visit, Est InflammaDry Office/outpatient Visit, Est Office/outpatient Visit, Est DEI D Hist 40 Capsule MiBo Thermaflo No Charge Optomap Fundus Photos 023 No Charge Refraction Office/outpatient Visit, Est MiBo Thermaflo Initial Treatment Plus Garrison pplies Office/outpatient Visit, Est Office/outpatient Visit, Est Dmitri Eye Mask Office/outpatient Visit, Est Dmitri Eye Mask Office/outpatient Visit, Est NEAR IFR 2IMG MIBMN GLND I&R InflammaDry InflammaDry No Charge Refraction No Charge Optomap Fundus Photos 021 Eye Exam, New Patient Eye Exam & Treatment Refraction Office/outpatient Visit, Est Advance Directives Directive Yes / No Effective Date File Name No Information Encounters Encounter Description Practice Location Reason(s) For Visit Diagnoses Date Provider Providers Copied on Encounter Office/outpa tient Visit, [facility], [address] [place] [address] [address], [place], [place], [address], tel:[phone] [place] 5 month Dry eye followup (chief complaint) Keratoconjunctiv itis sicca, not specified as Sjogren's, bilateral March- 4 Amirah OD Geetha. [address] [place] [address] [address], [address], [place], [place], [address], [place]. tel:[phone] Referring Provider: Geetha Macario OD K, [address] [place] [address] [address], [place], [address] . tel:[phone] Office/outpa [place]ient Visit, [facility] [place], [address] [place] [address] [address], [place], [place], [address], tel:[phone] [place] dry eye follow up (chief complaint) Keratoconjunctiv itis sicca, not specified as Sjogren's, bilateralMeibomi an gland dysfnct right eye, upper and lower eyelidsMeibomian gland dysfnct left eye, upper and lower eyelids 3 Amirah OD Geetha. [address] [place] [address] [address], [address], [place], [place], [address], [place]. tel:[phone] Referring Provider: Geetha Macario OD K, [address] [place] [address] [address], [place], [address] . tel:[phone] Office/outpa [place]ient Visit, [facility] [place], [address] [place] [address] [address], [place], [place], [address], [place] tel:[phone] DEI [place] 1 month followup (chief complaint) Keratoconjunctiv itis sicca, not specified as Sjogren's, bilateralMeibomi an gland dysfnct right eye, upper and lower eyelidsMeibomian gland dysfnct left eye, upper and lower eyelids 3 Amirah OD Geetha. [address] [place] [address] [address], [address], [place], [place], [address], . tel:[phone] Referring Provider: Geetha Wilkerson, [address] [place] [address] [address], [place], [address] . tel:[phone] Office/outpa tient Visit, [facility], [address] [place] [address] [address], [place], [place], [address], tel:[phone] [place] Dry eye follow up (chief complaint) Meibomian gland dysfnct right eye, upper and lower eyelidsMeibomian gland dysfnct left eye, upper and lower eyelidsKeratocon junctivitis sicca, not specified as Sjogren's, bilateral Feb- 3 Amirah OD Geetha. [address] [place], [place] [address]i, [address], [place], [place], [address], . tel:[phone] Referring Provider: Geetha Wilkerson, [address] [place], [place] [address] [address], [place], [address] . tel:[phone] Office/outpa tient Visit, [facility] [place], [address] [place] [address] [address], [place], [place], [address], tel:[phone] DEI [place] Complete exam and dry eye follow up (chief complaint) Keratoconjunctiv itis sicca, not specified as Sjogren's, bilateralMeibomi an gland dysfnct left eye, upper and lower eyelidsMeibomian gland dysfnct right eye, upper and lower eyelids 2 Amirah OD Geetha. [address] [place] [address] [address], [address], [place], [place], [address], . tel:[phone] Referring Provider: Geetha Wilkerson, [address] [place], [place] [address] [address], [place], [address] . tel:[phone] Office/outpa tient Visit, [facility], [address] [place] [address] [address], [place], [place], [address], tel:[phone] [place] Dry eye followup (chief complaint) Keratoconjunctiv itis sicca, not specified as Sjogren's, bilateralMeibomi an gland dysfnct right eye, upper and lower eyelidsMeibomian gland dysfnct left eye, upper and lower eyelids Mar-1 0-202 2 Amirah OD Geetha. [address] [place] [address] [address], [address], [place], [place], [address], [place]. tel:[phone] Referring Provider: Geetha Wilkerson, [address] [place] [address] [address], [place], [address] . tel:[phone] Office/outpa [place]ient Visit, [facility] [place], [address] [place] [address] [address], [place], [place], [address], [place] tel:[phone] DEI [place] Dry eye follow up (chief complaint) Meibomian gland dysfnct right eye, upper and lower eyelidsMeibomian gland dysfnct left eye, upper and lower eyelidsKeratocon junctivitis sicca, not specified as Sjogren's, bilateral Dec- 6-202 1 Amirah OD Geetha. [address] [place] [address] [address], [address], [place], [place], [address], . tel:[phone] Referring Provider: Geetha Wilkerson, [address] [place] [address] [address], [place], [address] . tel:[phone] Office/outpa tient Visit, [facility], [address] [place] [address] [address], [place], [place], [address], tel:[phone] DEI [place] Dry eye Evaluation (chief complaint) Meibomian gland dysfnct right eye, upper and lower eyelidsMeibomian gland dysfnct left eye, upper and lower eyelidsKeratocon junctivitis sicca, not specified as Sjogren's, bilateral 1 Amirah OD eGetha. [address] [place] [address] [address], [address], [place], [place], [address], . tel:[phone] Referring Provider: Geetha Wilkerson, [address] [place] [address] [address], [place], [address] . tel:[phone] [facility], [address] [place] [address] [address], [place], [place], [address], [place] tel:[phone] SEC Jean-Pierre Oswald Complete Exam (chief complaint) Keratoconjunctiv itis sicca, not specified as Sjogren's, bilateralPseudop hakia of both eyesMeibomian gland dysfnct left eye, upper and lower eyelidsMeibomian gland dysfnct right eye, upper and lower eyelidsAstigmati sm of both eyes with presbyopiaPresby opiaVitreous degeneration, bilateral 1 Amirah OD Geetha. [address] [place] [address] [address], [address], [place], [place], [address], [place]. tel:[phone] Referring Provider: Geetha Wilkerson, [address] [place] [address] [address], [place], [address] . tel:[phone] [facility], [address] [place] [address] [address], [place], [place], [address], [place] tel:[phone] SEC Jean-Pierre Laila Oswald No Information 1 Heriberto Sarkar. [address] [place] [address] [address], [address], [place], [place], [address], [place]. tel:[phone] [facility], [address] [place] [address] [address], [place], [place], [address], [place] tel:[phone] [facility] No Information May-2 2-200 7 [place] OD Avelino. [address], [address], [place], [address], [place]. tel:[phone] Office/outpa tient Visit, [facility], [address], [place], [place], [address], [place] tel:[phone] [facility] No Information 1-200 7 [place] OD Avelino. [address], [place], [address], [place]. tel:[phone] Family History Family Member Type Diagnosis Age At Onset Problem Family history of degenerati ve disorder of macula Problem Family history of Diabetes jaxson blancas Payers Payer name Insurance type Covered democrat ID Authoriza jn(s) [place] [id number] [place] [id number] Social History Type Description Quantity Date Captured Comments Alcohol Use Details No Caffeine Use Details Tobacco Use Status Current non-smoker Smoking Status Never smoker Non-Smoking Tobacco Use Details : No Details Available : No Details Available Sex Female Chief Complaint And Reason For Visit From encounter dated '04/04/2024 10:45'. 5 month Dry eye followup (chief complaint). Description: The 78 year old patient presents for evaluation of 5 month Dry eye followup in the right eye and left eye. Pt is feeling eyes are a little drybut not as bad as when they used to be. Pt does use warm compresses at night. Pt. states she sometimes gets white mucus in corner of her eyes.Speed score: 09/11TBUT: OD: -24.92 OS 20.84 Reason For Referral Reason For Referral No Information Plan Of Treatment Date Type Action Status Appointment Madeline Mancera BOOKED Patient Education Dry Eyes: Care Instruct ions completed History Of Present Illness Encounter Date Complaint History Of Prese nt Illness 5 month Dry eye followup The 78 year old patient presents for evaluation of 5 month Dry eye followup in the right eye and left eye. Pt is feeling eyes are a little dry but not as bad as when they used to be. Pt does use warm compresses at night. Pt. states she sometimes gets white mucus in corner of her eyes.Speed score: 09/11TBUT: OD: -24.92 OS 20.84 dry eye follow up The 77 year ol d patient presents for evaluation of dry eye follow up in the right eye and left eye. Patient using ivizia BID OU and Eysuvis PRN for flare ups. Pt is no longer using serum tears, she ran out. Pt states her daughter had Miebo and let her use it for awhile and she loved it, so pt is here to get that today. Pt is taking B12, vit C, vit D3 and omega 3. SPEED score: 11/11TBUT: OD 2.68, OS -3.82 1 month followup The 77 year old patient presents for evaluation of 1 month followup in the right eye and left eye. Pt. is using Ivizia, Serum tears qid , Eysuvis prn for flare ups, Vit C, B12, D3, potassium, Magnesium, and D hist. Pt. states vison is much improved in OD. Pt .states eyes are a little more scratchy. Speed score 11/11TBUT OD:4.59 OS: 3.82 Dry eye follow up The 77 year ol d patient presents for evaluation of Dry eye follow up in the right eye and left eye. Pt reports eyes do not feel as dry and gritty as they used to. Pt states by evening OU are very fatigued. Pt reports eye lids have been itching since allergy season started. Pt using Serum tears TID-QID OU, Ivizia BID OU and heat mask QHS. Pt taking potassium, magnesium, vitamin C, B-12 and D3.TBUT 2.10/-8.92SPEED Complete exam and dr echevarria eye follow up The 76 year old patient presents for evaluation of Complete exam and dry eye follow up in the right eye and left eye. Pt reports she is having issues driving at night due to glare from headlights. Pt states OU burn and sting some days and eyelids itch a lot. Pt is using Serum tears TID-QID OU, Ivizia PRN OU and hear mask QHS. Pt states she has used Restasis in the past, ran out a while ago. Has not used Eysuvis in a couple of months. Pt takes vitamin B12, Vitamin D3, Vitamin C, [place] 3.TBUT -4.53/-7.14SPEED Dry eye followup The 76 year old client presents for evaluation of Dry eye followup in the right eye and left eye. Pt. has h/o ZANDER OU, MGD OU, KCS OU, Lid sx. OU, PC/IOL OU. Pt. is using Serum tears now with much improvement past 3 1/2 months, Eysuvis but only occasionally with discomfort, Pt. also using heat mask qhs, Pt. using vitamin B12, Vitamin D3, and fish oil. Pt. notices eyelids itch at times and also Vision in OD looks like film across it improves with blinking. Speed 9, TBUT OD 3.50/OS 4.97 Dry eye follow up The 75 year ol d female presents for evaluation of Dry eye follow up in the right eye and left eye. Hx of PCIOL OU, ZANDER OU, and Lid Sx OU, MGD OU, KCS OU. Pt reports eyes are gritty feeling with intermittent scratching OU. Pt states OU have been itching a lot lately and she has some tearing. Pt uses Refresh Sahil 3 TID-QID OU, taking [place] 3 1 PO BID. Pt wears mask at bedtime and uses warm compresses.TBUT -3.76/4.40SPEED Dry eye Evaluation The 75 year o ld female presents for evaluation of Dry eye Evaluation in the right eye and left eye. Hx of PCIOL OU, ZANDER OU, and Lid Sx OU, MGD OU, KCS OU. Pt states that she has some burning and stinging in both eyes. Pt is currently using [place] 3 Refresh 2-3 x day OU. Pt uses a mask at bedtime and warm compresses during the day.TBUT -6.63/-1.08No SPEED questionnaire Complete Exam The 75 year old female presents for evaluation of Complete Exam in the right eye and left eye. Hx of PCIOL OU, ZANDER OU, and Lid Sx OU. Pt reports she uses PF Refresh Optive Sahil-3 AFT BID-TID maybe more, uses WC QHS OU, Lid scrubs PRN OU, eye vitamin QD, and Neomycin/Poly/Dexamethasone anand QHS OU. Pt reports VA is good OS, NV and DV, with gls. Pt reports she has a floater that drives her crazy, temporal, OD, x 1 mo and she denies any flashes of light, OU. Pt reports OD has a spot in her VA that looks like she is looking thru a fog. Functional Status Date Functional Assessmen t No Information Instructions Date Instruction Additional Infor jasmeet Impression/Plan Impression/Plan Impression/Plan Impression/Plan Impression/Plan Impression/Plan Impression/Plan Impression/Plan Impression/Plan Impression/Plan Assessments Type Assessment Date assessment Keratoconjunctivitis sicca, not specified as Sjogren's, bilateral Patient Care Teams Name Effective Dates (start - stop) Status Members No Information
[2024-11-02 23:53] LABS: Calprotectin, Stool 59 mcg/g
== END 2024-10-27 12:08 | disposition home or self-care (01) ==
LOC: ANHLAB 12:08
PROVIDERS: PCP Family Medicine; Visit Provider Nurse Practitioner Family
DX: R10.31 Right lower quadrant pain (principal)
CPT/HCPCS: 83993

== ENCOUNTER 2024-11-09 08:32 | Outpatient (CLI) | payer MEDICARE, BC, SELFPAY ==
--- NOTE | ~2024-11-09 | CT_ITS ---
EXAMINATION: CT abdomen pelvis wo con DATE: 11/09/2024 09:16 INDICATION: Abdominal pain TECHNIQUE: Computed tomography (CT) of the abdomen and pelvis was performed without intravenous contr ast. Automated exposure control and iterative reconstruction technique were employed. The dose-length product was 207.59 mGy-cm. 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 Heart size is normal. No pericardial or pleural effusion. Liver, gallbladder, spleen, pancreas, bilateral adrenal glands and kidneys are normal. There is mild colonic diverticulosis with a sigmoid predominance. There is no adjacent inflammatory change to suggest diverticulitis. Small b owel and appendix are normal. Small fat-containing umbilical hernia. Bladder is normal. The uterus is not identified and has likely been surgically resected. No free intraperitoneal gas or fluid. Mild t horacolumbar levocurvature was severe spondylosis. IMPRESSION: 1. No acute intra-abdominal/pelvic process. Reviewed, dictated and finalized at location B. ITALIST MEDICAL DIRECTOR
--- OUTSIDE RECORDS SUMMARY | 2024-11-16 18:48 | XMS_ITS | Continuity of Care Document ---
Author Organization [facility] Address [address] [place] [address] Phone Care Team Providers Care After School Counselor Name Role Phone Unavailable Unavailable Unavailable Advance Directives Directive Yes / No Effective Date File Name No Information Encounters Encounter Description Practice Location Reason(s) For Visit Diagnoses Date Provider Providers Copied on Encounter [facility], [address], [place], [place], [address], [place] tel:[phone] [facility] LUMBAR DISC DISPLACEMENTOTH ADV EFF MED/BIO SUB Oct-0 2-200 4 No Information Family History Family Member Type Diagnosis Age At Onset No Information Payers Payer name Insurance type Covered alliance party ID Authoriza tion(s) No Information Social History [...]
--- OUTSIDE RECORDS SUMMARY | 2024-11-16 18:48 | XMS_ITS | Encounter Summary ---
Author Organization [facility] Address [address] [facility] [place] [address] Care Team Providers Care Wharf Tender Helper Name Role Phone Vira Mcfarland MD Primary Care Provider [phone] Reason for Visit * Reason Onset Date Comments MEDICATION REFILL 10/31/2018 Encounter Details Date Type Department Care Team (Late st Contact Info) Description 10/31/2018 Telephone [facility] [address] [place] [address] Rk Wells MD [address] [facility] [place] [id number] MEDICATION REFILL Social History Tobacco Use Types Packs/Day Years Used Date Smoking Tobacco: Never Assessed Sex and Gender Information Value Date Recorded Sex Assigned at Not on file Gender Identity Not on file Sexual Orientation Not on file documented as of this encounter Miscellaneous Notes * Telephone Encounter - Leilani Wilson - 10/31/2018 3:[address] Mccloud, Patient requests a refill of Restasis 0.05% 1 drop OU b.i.d. Please advise. TOR NAT[employer] HISTORY [employer] documented in this encounter Plan of Treatment Not on file documented as of this encounter Visit Diagnoses Not on filedocumented in this encounter Care Teams Wharf Tender Helper Relationship Specialty Start Date End Date Vira Mcfarland MD [address] [place] [address] PCP - General 04/15/18 documented as of this encounter
--- OUTSIDE RECORDS SUMMARY | 2024-11-16 18:48 | XMS_ITS | Encounter Summary ---
Author Organization [facility] Address [address] [place] [address] Care Team Providers Care Telephone Sales Agent Name Role Phone Vira Mcfarland MD Primary Care Provider [phone] Reason for Visit * Reason Comments Refill Request Encounter Details Date Type Department Care Team (Late st Contact Info) Description 05/10/2018 Refill [facility] [address] [place] [address] Rk Wells MD [address] [facility] [place] [address] Refill Request Social History Tobacco Use Types Packs/Day Years Used Date Smoking Tobacco: Never Assessed Sex and Gender Information Value Date Recorded Sex Assigned at Not on file Gender Identity Not on file Sexual Orientation Not on file documented as of this encounter Miscellaneous Notes * Telephone Encounter - Sacha Jose MD - 05/11/2018 2:37 PM CDT Refilled Restasis after chart review. Sacha Jose MD documented in this encounter Plan of Treatment Not on file documented as of this encounter Visit Diagnoses Not on filedocumented in this encounter Care Teams Telephone Sales Agent Relationship Specialty Start Date End Date Vira Mcfarland MD [address] [place] [address] PCP - General 04/15/18 documented as of this encounter
--- OUTSIDE RECORDS SUMMARY | 2024-11-16 18:48 | XMS_ITS | Encounter Summary ---
Author Organization [facility] Address [address] [facility] [place] [address] Care Team Providers Care Room Service Waiter/Waitress Name Role Phone Vira Mcfarland MD Primary Care Provider [phone] Encounter Details Date Type Department Care Team (Late st Contact Info) Description 01/15/2021 Orders Only [facility] - COVID Vaccine [address] [place] [id number] Jared Morales MD [address] [place] [address] Need for vaccination Social History Tobacco Use Types Packs/Day Years Used Date Smoking Tobacco: Never Assessed Sex and Gender Information Value Date Recorded Sex Assigned at Not on file Gender Identity Not on file Sexual Orientation Not on file documented as of this encounter Plan of Treatment Not on file documented as of this encounter Visit Diagnoses Diagnosis Need for vaccination Need for prophylactic vaccination and inoculation against unspecified single disease documented in this encounter Care Teams Room Service Waiter/Waitress Relationship Specialty Start Date End Date Vira Mcfarland MD [address] [place] [address] PCP - General 04/15/18 documented as of this encounter
--- OUTSIDE RECORDS SUMMARY | 2024-11-16 18:48 | XMS_ITS | Continuity of Care Document ---
Author Organization [facility] Address [address] [facility] [address] Goodman [address] [place] [address] Phone Care Team Providers Care Strategy Consultant Name Role Phone Geetha Macario OD Unavailable [...] Encounter Office/outpa tient Visit, [facility], [address] [place] [address] [address], [place], [place], [address], tel:[phone] [place] 5 month Dry eye followup (chief complaint) Keratoconjunctiv itis sicca, not specified as Sjogren's, bilateral March- 4 Amirah OD Geetha. [address] [place] [address] [address], [address], [place], [place], [address], [place]. tel:[phone] Referring Provider: Geetha Macario OD K, [address] [place] [address] [address], [place], [address] . tel:[phone] Office/outpa tient Visit, [facility], [address] [place] [address] [address], [place], [place], [address], tel:[phone] [place] dry eye follow up (chief complaint) Keratoconjunctiv itis sicca, not specified as Sjogren's, bilateralMeibomi an gland dysfnct right eye, upper and lower eyelidsMeibomian gland dysfnct left eye, upper and lower eyelids 3 Amirah OD Geetha. [address] [place] [address] [address], [address], [place], [place], [address], [place]. tel:[phone] Referring Provider: Geetha Macario OD K, [address] [place] [address] [address], [place], [address] . tel:[phone] Office/outpa tient Visit, [facility], [address] [place] [address] [address], [place], [place], [address], [place] tel:[phone] DEI [place] 1 month followup (chief complaint) Keratoconjunctiv itis sicca, not specified as Sjogren's, bilateralMeibomi an gland dysfnct right eye, upper and lower eyelidsMeibomian gland dysfnct left eye, upper and lower eyelids 3 Amirah OD Geetha. [address] [place] [address] [address], [address], [place], [place], [address], . tel:[phone] Referring Provider: Geetha Wilkerson, [address] [place] [address] [address], [place], [address] . tel:[phone] Office/outpa tient Visit, [facility], [address] [place] [address] [address], [place], [place], [address], tel:[phone] SEC [place] Dry eye follow up (chief complaint) Meibomian gland dysfnct right eye, upper and lower eyelidsMeibomian gland dysfnct left eye, upper and lower eyelidsKeratocon junctivitis sicca, not specified as Sjogren's, bilateral Feb- 3 Amirah OD Geetha. [address] [place], [place] [address]i, [address], [place], [place], [address], . tel:[phone] Referring Provider: Geetha Wilkerson, [address] [place], [place] [address]i [address], [place], [address] . tel:[phone] Office/outpa tient Visit, [facility], [address] [place] [address] [address], [place], [place], [address], tel:[phone] DEI [place] Complete exam and dry eye follow up (chief complaint) Keratoconjunctiv itis sicca, not specified as Sjogren's, bilateralMeibomi an gland dysfnct left eye, upper and lower eyelidsMeibomian gland dysfnct right eye, upper and lower eyelids 2 Amirah OD Geetha. [address] [place] [address] [address], [address], [place], [place], [address], . tel:[phone] Referring Provider: Geetha Wilkerson, [address] [place], [place] [address] [address], [place], [address] . tel:[phone] Office/outpa tient Visit, [facility], [address] [place] [address] [address], [place], [place], [address], tel:[phone] [place] Dry eye followup (chief complaint) Keratoconjunctiv itis sicca, not specified as Sjogren's, bilateralMeibomi an gland dysfnct right eye, upper and lower eyelidsMeibomian gland dysfnct left eye, upper and lower eyelids Mar-1 0-202 2 Amirah OD Geetha. [address] [place] [address] [address], [address], [place], [place], [address], [place]. tel:[phone] Referring Provider: Geetha Wilkerson, [address] [place] [address] [address], [place], [address] . tel:[phone] Office/outpa tient Visit, [facility], [address] [place] [address] [address], [place], [place], [address], [place] tel:[phone] DEI [place] Dry eye follow up (chief complaint) Meibomian gland dysfnct right eye, upper and lower eyelidsMeibomian gland dysfnct left eye, upper and lower eyelidsKeratocon junctivitis sicca, not specified as Sjogren's, bilateral Dec- 6-202 1 Amirah OD Geetha. [address] [place] [address] [address], [address], [place], [place], [address], . tel:[phone] Referring Provider: Geetha Wilkerson, [address] [place] [address] [address], [place], [address] . tel:[phone] Office/outpa tient Visit, [facility], [address] [place] [address] [address], [place], [place], [address], tel:[phone] DEI [place] Dry eye Evaluation (chief complaint) Meibomian gland dysfnct right eye, upper and lower eyelidsMeibomian gland dysfnct left eye, upper and lower eyelidsKeratocon junctivitis sicca, not specified as Sjogren's, bilateral 1 Amirah OD Geetha. [address] [place] [address] [address], [address], [place], [place], [address], . tel:[phone] Referring Provider: Geetha Wilkerson, [address] [place] [address] [address], [place], [address] . tel:[phone] [facility], [address] [place] [address] [address], [place], [place], [address], [place] tel:[phone] SEC Jean-Pierre Oswald Complete Exam (chief complaint) Keratoconjunctiv itis sicca, not specified as Sjogren's, bilateralPseudop hakia of both eyesMeibomian gland dysfnct left eye, upper and lower eyelidsMeibomian gland dysfnct right eye, upper and lower eyelidsAstigmati sm of both eyes with presbyopiaPresby opiaVitreous degeneration, bilateral 1 Amirah OD Geetha. [address] [place] [address] [address], [address], [place], [place], [address], [place]. tel:[phone] Referring Provider: Geetha Wilkerson, [address] [place] [address] [address], [place], [address] . tel:[phone] [facility], [address] [place] [address] [address], [place], [place], [address], [place] tel:[phone] SEC Jean-Pierre Laila Oswald No Information 1 Heriberto Sarkar. [address] [place] [address] Drive, [address], [place], [place], [address], [place]. tel:[phone] [facility], [address] [place] [address] [address], [place], [place], [address], [place] tel:[phone] [facility] No Information May-2 2-200 7 [place] OD Avelino. [address], [address], [place], [address], [place]. tel:[phone] Office/outpa tient Visit, [facility], [address], [place], [place], [address], [place] tel:[phone] [facility] No Information 1-200 7 [place] OD Avelino. [address], [place], [address], [place]. tel:[phone] Family History Family Member Type Diagnosis Age At Onset Problem Family history of degenerati ve disorder of macula Problem Family history of Diabetes jaxson blancas Payers Payer name Insurance type Covered democrat ID Authoriza jn(s) [place] [id number] [place] BL [id number] Social History Type Description Quantity Date Captured [...] takes vitamin B12, Vitamin D3, Vitamin C, Blakeslee 3.TBUT -4.53/-7.14SPEED Dry eye followup The 77 [...] uses Refresh Sahil 3 TID-QID OU, taking Blakeslee 3 1 PO BID. Pt wears mask [...] in both eyes. Pt is currently using Blakeslee 3 Refresh 2-3 x day OU. Pt [...]
--- OUTSIDE RECORDS SUMMARY | 2024-11-16 18:48 | XMS_ITS | Encounter Summary ---
Author Organization [facility] Address [address] [place] [address] Care Team Providers Care Venetian Blind Worker Name Role Phone Vira Mcfarland MD Primary Care Provider [phone] Reason for Visit * Reason Onset Date Comments Eye Problem 06/25/2020 Encounter Details Date Type Department Care Team (Late st Contact Info) Description 06/25/2020 Telephone [facility] [address] [place] [address] Junior Wilkinson MD [address] [place] [address] Eye Problem Social History Tobacco Use Types Packs/Day Years Used Date Smoking Tobacco: Never Assessed Sex and Gender Information Value Date Recorded Sex Assigned at Not on file Gender Identity Not on file Sexual Orientation Not on file documented as of this encounter Miscellaneous Notes * Telephone Encounter - Heather Tobin - 06/25/2020 11:47 AM CDT ----- Message from Kasia Figueroa sent at 06/25/2020 11:42 AM CDT ----- Regarding: Pt needs to see Dr. Russell LUCAS.... Pt needs to see Dr. Russell LUCAS. Pt is having vision issues, itchy, extreme burning eyes. Pt cant wait til July. Pt callback #[phone]; thanks. Kasia Figueroa Scheduling documented in this encounter Plan of Treatment Not on file documented as of this encounter Visit Diagnoses Not on filedocumented in this encounter Care Teams Venetian Blind Worker Relationship Specialty Start Date End Date Vira Mcfarland MD [address] [place] [address] PCP - General 04/15/18 documented as of this encounter
--- OUTSIDE RECORDS SUMMARY | 2024-11-16 18:48 | XMS_ITS | Encounter Summary ---
Author Organization [facility] Address [address] [place] [address] [place] [address] Care Team Providers Care Plate Gauger Name Role Phone Unavailable Primary Care Provider Unavailabl e Encounter Details Date Type Department Care Team (Late st Contact Info) Description 05/07/2016 Anesthesia Historic Visit [facility] [address] [place] [phone] Social History Tobacco Use Types Packs/Day Years [...]
--- OUTSIDE RECORDS SUMMARY | 2024-11-16 18:48 | XMS_ITS | Clinical Summary ---
Author Organization [email or web address] Address [address] [facility] [place] [address] Care Team Providers Care Shipping Clerk/Admin Name Role Phone Vira Mcfarland MD Primary Care Provider [phone] [email or web address],non-owned Affiliates and Associated Physician Practices is amultiple site organization consisting of ambulatory clinics and hospital sitesin [place], [place], [place] and [place]. This disclosure is being madepursuant to the Care Everywhere program and may not contain all information available regarding this patient. Last updated 18.[employer] [email or web address] Medications * Be aware that medications may not be up to date on this document. Alwaysverify current medications with the patient. Medication Sig Dispensed Refills Start Date End Date Status cycloSPORINE (RESTASIS) 0.05 % ophthalmic suspension Instill 1 drop into both eyes 2 times daily 5 Box 5 10/31/2018 Active Social History Tobacco Use Types Packs/Day Years Used Date Smoking Tobacco: Never Assessed Sex and Gender Information Value Date Recorded Sex Assigned at Not on file Gender Identity Not on file Sexual Orientation Not on file Last Filed Vital Signs Vital Sign Reading Time Taken Comments Blood Pressure 170/68 08/13/2016 10:25 AM CDT Pulse 57 08/13/2016 10:25 AM CDT Temperature 36.7 ??C (98 ??F) 08/13/2016 10:25 AM CDT Respiratory Rate 16 08/13/2016 7:41 AM CDT Oxygen Saturation 98% 08/13/2016 10:25 AM CDT Inhaled Oxygen Concentration - - Weight 65.8 kg (145 lb) 08/13/2016 7:41 AM CDT Height 162.6 cm (5' 4 ) 08/13/2016 7:41 AM CDT Body Mass Index 24.89 08/13/2016 7:41 AM CDT Plan of Treatment Health Maintenance Due Date Last Done Comments BONE DENSITY TESTING 1945 MEDICARE AWV ? 12 MONTHS 1945 DTAP/TDAP/TD VACCINES (1 - Tdap) 1963 ZOSTER VACCINE (1 of 2) 1994 PNEUMOCOCCAL VACCINE 65+ (1 of 1 - PCV) 2009 Respiratory Syncytial Virus (RSV) Vaccine Pt: or over 60 yrs (1 - 1-dose 75+ series) 2019 DEPRESSION SCREENING 11/15/2023 COVID-19 VACCINE ( - 2023-2 5 season) 2024 INFLUENZA VACCINE (#1) 2024 HEPATITIS B VACCINE Aged Out No longe r eligible based on patient's age to complete this topic HIB VACCINE Aged Out No longer eligi ble based on patient's age to complete this topic HPV VACCINE Aged Out No longer eligi ble based on patient's age to complete this topic MENINGOCOCCAL VACCINE Aged Out No doris tom eligible based on patient's age to complete this topic Care Teams Shipping Clerk/Admin Relationship Specialty Start Date End Date Vira Mcfarland MD [address] [place] [address] PCP - General 04/15/18
--- OUTSIDE RECORDS SUMMARY | 2024-11-16 18:48 | XMS_ITS | Referral Summary ---
Author Organization [facility] [employer] Address [address] [place] [address] Care Team Providers Care Blocker And Polisher Gold Wheel Name Role Phone Vira Mcfarland MD Primary Care Provider [phone] Source Comments [facility] [employer],non-owned Affiliates and Associated Physician Practices is amultiple site organization consisting of ambulatory clinics and hospital sitesin [place], [place], [place] and [place]. This disclosure is being madepursuant to the Care Everywhere program and may not contain all information available regarding this patient. Last updated 18.[employer] Medications * Be aware that medications may [...] 08/13/2016 7:41 AM CDT Plan of Treatment Not on file Care Teams Blocker And Polisher Gold Wheel Relationship Specialty Start Date End Date Vira Mcfarland MD [address] [place] [address] PCP - General 04/15/18
--- OUTSIDE RECORDS SUMMARY | 2024-11-16 18:48 | XMS_ITS | Encounter Summary ---
Author Organization [facility] Address [address] [facility] [place] [address] Care Team Providers Care Natural Resources Extension Educator Name Role Phone Vira Mcfarland MD Primary Care Provider [phone] Encounter Details Date Type Department Care Team (Late st Contact Info) Description 10/31/2018 Orders Only [facility] [address] [place], [place] [id number] Darleen Mccloud MD [facility] [place] [phone] Social History Tobacco Use Types Packs/Day Years Used Date Smoking Tobacco: Never Assessed Sex and Gender Information Value Date Recorded Sex Assigned at Not on file Gender Identity Not on file Sexual Orientation Not on file documented as of this encounter Progress Notes * Darleen Mccloud MD - 10/31/2018 5:07 PM CST Refill for restasis provided following chart review. Darleen Mccloud MD ODOLOGIST documented in this encounter Plan of Treatment Not on file documented as of this encounter Visit Diagnoses Not on filedocumented in this encounter Care Teams Natural Resources Extension Educator Relationship Specialty Start Date End Date Vira Mcfarland MD [address] [place] [address] PCP - General 04/15/18 documented as of this encounter
--- OUTSIDE RECORDS SUMMARY | 2024-11-16 18:48 | XMS_ITS | Encounter Summary ---
Author Organization [facility] Address [facility] [facility] [place] [address] Care Team Providers Care Cleaner Industrial Name Role Phone Unavailable Primary Care Provider Unavailabl e Encounter Details Date Type Department Care Team (Late st Contact Info) Description 01/08/2014 Anesthesia Historic Visit [facility] [address] [place] [phone] Social History Tobacco Use Types Packs/Day Years Used Date Smoking Tobacco: Never Assessed Sex and Gender Information Value Date Recorded Sex Assigned at Not on file Gender Identity Not on file Sexual Orientation Not on file documented as of this encounter Last Filed Vital Signs Vital Sign Reading Time Taken Comments Blood Pressure - - Pulse 59 01/08/2014 9:16 AM EIGHT SECTION BLOWER Temperature - - Respiratory Rate - - Oxygen Saturation - - Inhaled Oxygen Concentration - - Weight - - Height - - Body Mass Index - - documented in this encounter Plan of Treatment Not on file documented as of this encounter Visit Diagnoses Not on filedocumented in this encounter
--- OUTSIDE RECORDS SUMMARY | 2024-11-16 18:48 | XMS_ITS | Patient Health Summary ---
Author Organization [facility] [employer] Address [address] [facility] [place] [address] Care Team Providers Care Vice President Of Engineering Name Role Phone Vira Mcfarland MD Primary Care Provider [phone] Note from [facility],non-owned Affiliates and Associated Physician Practices is amultiple site organization consisting of ambulatory clinics and hospital sitesin [place], [place], [place] and [place]. This disclosure is being madepursuant to the Care Everywhere program and may not contain all information available regarding this patient. Last updated 18.[facility] Medications * Be aware that medications may not be up to date on this document. Alwaysverify current medications with the patient. * cycloSPORINE (RESTASIS) 0.05 % ophthalmic suspension(Started 10/31/2018) Instill 1 drop into both eyes 2 times daily 5 refills remaining Social History Tobacco Use Types Packs/Day Years [...] Mass Index 24.89 08/13/2016 7:41 AM CDT Care Teams Vice President Of Engineering Relationship Specialty Start Date End Date Vira Mcfarland MD [address] [place] [address] PCP - General 04/15/18
--- OUTSIDE RECORDS SUMMARY | 2024-11-16 18:48 | XMS_ITS | Encounter Summary ---
Author Organization [facility] Address [address] [place] [address] [place] [address] Care Team Providers Care Chronic Care Nurse Name Role Phone Unavailable Primary Care Provider Unavailabl e Encounter Details Date Type Department Care Team (Late st Contact Info) Description 08/13/2016 Anesthesia Historic Visit [facility] [address] [place] [phone] Social History Tobacco Use Types Packs/Day Years [...]
--- OUTSIDE RECORDS SUMMARY | 2024-11-16 18:48 | XMS_ITS | Encounter Summary ---
Author Organization [facility] Address [address] [place] [address] Care Team Providers Care Machine Scallop Cutter Name Role Phone Vira Mcfarland MD Primary Care Provider [phone] Reason for Visit * Reason Onset Date Comments MEDICATION REFILL 05/13/2018 Encounter Details Date Type Department Care Team (Late st Contact Info) Description 05/13/2018 Refill [facility] [address] [place] [address] Rk Wells MD [address] [facility] DE[place] [address] MEDICATION REFILL Social History Tobacco Use Types [...] on filedocumented in this encounter Care Teams Machine Scallop Cutter Relationship Specialty Start Date End Date Vira Mcfarland MD [address] [place] [address] PCP - General 04/15/18 documented as of this encounter
--- OUTSIDE RECORDS SUMMARY | 2024-11-16 18:49 | XMS_ITS | Clinical Summary ---
Author Organization [facility] [address] Address [address] [place] [address] Care Team Providers Care Solar Energy Advisor Name Role Phone Vira Mcfarland MD Primary Care Provider [phone] Allergies Active Allergy Reactions Criticality Noted Date Comments Adhesive Tape-Silicones Cadexomer Iodine Rash Medium 01/08/2014 Fluorescein-Benoxinate Swelling High 02/16/2012 Eyes swelling Iodine Unknown 07/20/2014 Latex Rash Medium 07/27/2013 Mild rash if latex on skin for extended period Potassium Iodide Unknown 07/20/2014 Prochlorperazine Anaphylaxis,Other (See comments) High 02/16/2012 Neck turning or spasm for muscle, Prochlorperazine Edisylate Unknown 4 Medications levothyroxine (SYNTHROID, LEVOTHROID) 88 mcg tablet Take 1 tablet (88 mcg total) by mouth daily Active valACYclovir (VALTREX) 500 mg tablet Take 1 tablet (500 mg total) by mouth daily Active montelukast (SINGULAIR) 10 mg tablet Take 1 tablet (10 mg total) by mouth nightly Active estrogens, conjugated, (PREMARIN) 0.625 mg tablet Take 1 tablet (0.625 mg total) by mouth daily Take daily for 21 days then do not take for 7 days. Active budesonide-formotero l (SYMBICORT) 80-4.5 mcg/actuation inhaler Inhale 2 puffs 2 (two) times a day Rinse mouth with water after use to reduce aftertaste and incidence of candidiasis. Do not swallow. Active cyanocobalamin (Vitamin B-12) 1,000 mcg tabletIndications:Pr evention of Vitamin B12 Deficiency Take 100 mcg by mouth daily. Active cholecalciferol (VITAMIN D-3) 1,000 unit Take 1 tablet/capsule (1,000 Units total) by mouth daily Active ascorbic acid (VITAMIN C) 500 mg tablet,chewable Acti ve fish oil-dha-epa 1,200-144-216 mg capsule Take by mouth. Activ e fenofibrate nanocrystallized (TRICOR,TRIGLIDE) 48 mg tabletIndications:Mi xed hyperlipidemia Take 2 tablets (96 mg total) by mouth daily. 30 tablet 11 10/18/20 17 Active hydroCHLOROthiazide (HYDRODIURIL) 12.5 mg tablet Take 1 tablet (12.5 mg total) by mouth daily 04/30/20 21 Active albuterol HFA (PROVENTIL HFA,VENTOLIN HFA,PROAIR HFA) 90 mcg/actuation inhaler albuterol sulfate HFA 90 mcg/actuation aerosol inhaler INHALE 1 PUFF BY MOUTH EVERY 4 HOURS NEEDED FOR DIFFICULT BREATHING Active estradioL (ESTRACE) 0.5 mg tablet estradiol 0.5 mg tablet TAKE 1 TABLET BY MOUTH EVERY OTHER DAY Active lisinopriL (PRINIVIL,ZESTRIL) 10 mg tablet lisinopril 10 mg tablet TAKE 1 TABLET BY MOUTH DAILY Active ipratropium (ATROVENT) 21 mcg (0.03 %) nasal spray ipratropium bromide 21 mcg (0.03 %) nasal spray Active metoprolol tartrate (LOPRESSOR) 25 mg immediate release tablet metoprolol tartrate 25 mg tablet TK 1 T PO BID Active omeprazole (PriLOSEC) 40 mg capsule 06/29/20 22 Active nortriptyline (PAMELOR) 10 mg capsule Take 1 capsule (10 mg total) by mouth nightly 30 capsule 6 07/29/20 23 Active cholestyramine (QUESTRAN) 4 gram powder Take 1 packet (4 g total) by mouth daily Dissolve in 8 oz of liquid and drink before a meal 30 packet 6 07/29/20 23 Active Active Problems Problem Noted Date Diagnosed Date Change in bowel habit 07/29/2023 Abdominal pain 07/29/2023 Colon cancer screening 07/29/2023 Rectal bleeding 07/29/2023 Sensorineural hearing loss (SNHL) of both ears 0 06/03/2021 Chest pain 09/06/2017 Assessment & Plan (09/06/2017 1:29 PM CDT): Chest pain resolved. Negative nuclear stress test for ischemia. Continue risk factor modifications for coronary artery disease Occlusion and stenosis of carotid artery 017 Assessment & Plan (10/18/2017 9:03 AM KICK PRESS OPERATOR): Current carotid ultrasound shows no significant occlusion bilaterally.. Continue risk factor modifications for atherosclerotic vascular disease Assessment & Plan (09/06/2017 1:23 PM CDT): The patient did have left carotid stenosis in 2009 between 50-70%. There are some carotid bruit and therefore will obtain carotid duplex to rule outs progression of carotid stenosis. Dyspnea on exertion 09/06/2017 Assessment & Plan (10/18/2017 9:03 AM KICK PRESS OPERATOR): Likely related to deconditioning and impaired relaxation on echocardiogram. Encourage exercise regimen Assessment & Plan (09/06/2017 1:22 PM CDT): Will obtain an echocardiogram to exclude cardiac etiology for dyspnea on exertion and rule out pulmonary hypertension. Mixed hyperlipidemia 09/06/2017 Assessment & Plan (10/18/2017 9:03 AM KICK PRESS OPERATOR): Increase the try care from 48 mg daily to 96 mg daily because the triglycerides are still elevated. Continue Lipitor 10 mg p.o. daily. Assessment & Plan (09/06/2017 1:23 PM CDT): Will start Lipitor 10 mg p.o. daily. Intrinsic urethral sphincter deficiency 02/26/20 11 Immunizations Name Administration Dates Next Due Pfizer SARS-CoV-2 Monovalent Vaccination (12+ Yrs) PURPLE 02/05/2021,01/12/2021 Surgical History Surgery Date Site/Laterality Comments HYSTERECTOMY CATARACT EXTRACTION EXTRACAPSULAR W/ INTRAOCULAR LENS IMPLANTATION 11/15/2015 - 11/14/2016 Bilateral BLEPHAROPTOSIS REPAIR 11/15/2013 - 11/14/2014 Bilateral INCONTINENCE SURGERY 2003, 2003, 2010 COLONOSCOPY Medical History Medical History Date Comments Hypertension Hyperlipidemia Sleep apnea Allergic rhinitis Asthma HL (hearing loss) Dizziness Headache Dry eye syndrome Sjogren's syndrome (HCC) DDD (degenerative disc disease), lumbar Thyroid disorder Family History Medical History Relation Name Comments Kidney disease Father Heart failure Mother Relation Name Status Comments Father Mother Social History Tobacco Use Types Packs/Day Years Used Date Smoking Tobacco: Never Smokeless Tobacco: Never Tobacco Cessation:Counseling Given: Not Answered Alcohol Use Standard Drinks/Week Comments No 0 (1 standard drink = 0.6 oz pur e alcohol) AUDIT-C Answer Date Recorded Q1: How often do you have a drink containing alcohol? Never 08/30/2023 Q2: How many drinks containi ng alcohol do you have on a typical day when you are drinking? Patient does not drink Q3: How often do you have si x or more drinks on one occasion? Never 08/30/2023 Personal Safety Answer Date Recorded Have you ever been in or are you currently in a harmful physical or emotional relationship or is someone making you feel afraid or unsafe? Denies 08/30/2023 Comments No Sex and Gender Information Value Date Recorded Sex Assigned at Not on file Legal Sex Female 10:02 AM KICK PRESS OPERATOR Gender Identity Not on file Sexual Orientation Not on file Obstetrics History Last Filed Vital Signs Vital Sign Reading Time Taken Comments Blood Pressure 128/70 08/30/2023 12:24 PM CDT Pulse 74 08/30/2023 12:24 PM CDT Temperature 36.4 ??C (97.5 ??F) 08/30/2023 9:55 AM CD T Respiratory Rate 31 08/30/2023 12:24 PM CDT Oxygen Saturation 100% 08/30/2023 12:24 PM CDT Inhaled Oxygen Concentration - - Weight 59 kg (130 lb) 08/30/2023 9:55 AM CDT Height 162.6 cm (5' 4 ) 08/30/2023 9:55 AM CDT Body Mass Index 22.31 08/30/2023 9:55 AM CDT Plan of Treatment Health Maintenance Due Date Last Done Comments Depression Screening 1945 Hepatitis C Screening 1945 Osteoporosis Screening-Bone Density Scan 1945 DTaP/Tdap/Td Vaccine (1 - Tdap) 1955 Hepatitis B Screening 1962 Zoster Vaccine (1 of 2) 1994 Well Visit 65+ 2009 Pneumococcal vaccine 65+ (2 of 2 - PPSV23 or PCV20) 08/06/2016 08/06/2015 Covid-19 Vaccine (3 - season) 2024, 01/12/2021 Influenza Vaccine (#1) 2024 08/06/2015, 2013 Fall Risk Assessment 08/30/2024 08/30/2023 Colon Cancer Screening-CT Colonography Discontinued Colon Cancer Screening-Colonoscopy Discontinued 2022 Colon Cancer Screening-DNA Stool Discontinued 08/30/20 Colon Cancer Screening-FIT Discontinued 08/30/2023 Colon Cancer Screening-FOBT Discontinued 08/30/2023 Colon Cancer Screening-Sigmoidoscopy Discontinued 08/15 Colorectal Cancer Screening Discontinued Procedures Procedure Name Priority Date/Time Associated Diagnosis Comments COLONOSCOPY 08/30/2023 11:13 AM CDT from Last 3 Months or Most Recently Relevant to Health Maintenance Results * COLONOSCOPY (08/30/2023 11:13 AM CDT) Anatomical Region Laterality Modality Other Narrative Procedure Note Blue Almaraz MD - 08/30/2023 11:13 AM CDT ENDOSCOPY LAB Patient Name: Madeline Mancera Procedure Date: 08/30/2023 11:13AM Date of : 1945 Admit Type: Outpatient Age: 77 Gender: Female Attending MD: Brooklyn Sheriff Room: [facility] ENDOSCOPY ROOM 05 Note Status: Finalized Procedure: Colonoscopy Indications: Screening for colorectal malignant neoplasm, Last colonoscopy: date unknown (unable to locate last colonoscopy report), Incidental - Rectal bleeding, Incidental - Change in bowel habits Providers: Blue Almaraz M.D. Referring MD: Vira Mcfarland M.D. Medicines: Monitored Anesthesia Care Complications: No immediate complications. Estimated Blood Loss: Estimated blood loss was minimal. Procedure: Pre-Anesthesia Assessment: - Prior to the procedure, a History and Physicalwas performed, and patient medications, allergies and sensitivities were reviewed. The patient'stolerance of previous anesthesia was reviewed. The benefits, risks and alternatives of theprocedure and sedation were discussed and informed consentwas obtained. All questions were answered. Please referto the signed informed consent document in the medical record. The scope was passed under direct vision.The [id number] was introduced through the anusand advanced to the terminal ileum. The colonoscopy was somewhat difficult due to multiple diverticula inthe colon. The patient tolerated the procedure well.The quality of the bowel preparation was evaluatedusing the BBPS ([place] Bowel Preparation Scale) withscores of: Right Colon = 3, Transverse Colon = 3 and Left Colon = 3 (entire mucosa seen well with no residual staining, small fragments of stool or opaqueliquid). The total BBPS score equals 9. The bowelpreparation used was GoLYTELY via split dose instruction. Findings: Hemorrhoids were found on perianal exam. Non-bleeding external and internal hemorrhoids were found during retroflexion and during endoscopy. The hemorrhoids were small. Multiple small and large-mouthed diverticula were found in thesigmoid colon and ascending colon. The exam was otherwise normal throughout the examined colon. The terminal ileum appeared normal. Biopsies for histology were taken with a cold forceps from the entire colon for evaluation of microscopic colitis. Impression: - Hemorrhoids found on perianal exam. - Non-bleeding external and internal hemorrhoids. - Diverticulosis in the sigmoid colon and in the ascending colon. - The examined portion of the ileum was normal. - Biopsies were taken with a cold forceps from the entire colon for evaluation of microscopiccolitis. Recommendation: - Discharge patient to home. - Await pathology results. - Repeat colonoscopy is not recommended due tocurrent age (66 years or older) for screening purposes. - The cause of rectal bleeding is likely frombleeding hemorrhoids. - If the biopsy is normal, can conclude that thecause of GI symptom is from irritable bowel syndrome andthe treatment will be continuing current medications. - Return to my office as previously scheduled. - We performed biopsies during your proceduretoday. If you do not receive the result from my office in, please contact my office at [phone]. Attending Participation: I personally performed the entire procedure. Electronically signed by Blue Almaraz MD Blue Almaraz M.D. 08/30/2023 11:49:26 AM Number of Addenda: 0 Note Initiated On: 08/30/2023 11:13 AM Blue Almaraz MD ENDOSCOPY PROCEDUR ES Final Result from Last 3 Months or Most Recently Relevant to Health Maintenance Insurance [facility] MEDICARE MEDICARE [facility] MEDICARE [facility] Advance Directives For more information, please contact: [phone] * Full Code (Latest Code Status on File) Date Activated Date Inactivated Comments 08/30/2023 9:50 AM 08/30/2023 4:39 PM Care Teams Solar Energy Advisor Relationship Specialty Start Date End Date Vira Mcfarland MD PCP - General Family Medicine 09/13/17
--- OUTSIDE RECORDS SUMMARY | 2024-11-16 18:49 | XMS_ITS | Clinical Summary ---
Author Organization [facility] Address [address] [place] [id number] Phone Care Team Providers Care Organic Extractions Technician Name Role Phone Vira Mcfarland MD Primary Care Provider [phone] Active Problems Problem Noted Date Diagnosed Date Chronic pain syndrome 03/25/2017 Somatic symptom disorder, pe rsistent, severe, with predominant pain 03/25/2017 Social History Tobacco Use Types Packs/Day Years Used Date Smoking Tobacco: Never Assessed Comments Unknown Sex and Gender Information Value Date Recorded Sex Assigned at Not on file Legal Sex Female 3:31 PM CDT Gender Identity Not on file Sexual Orientation Not on file Plan of Treatment Health Maintenance Due Date Last Done Comments DEXA Bone Density 1945 Hepatitis C Virus (HCV) Screening 1945 TdaP Immunization 1945 Pneumococcal Immunization (5 0+ years) (1 of 1 - PCV) 1994 Zoster Immunization (1 of 2) 1994 Respiratory Syncytial Virus (RSV) Immunization (Adult) (1 - 1-dose 75+ series) 2019 Influenza Immunization (#1) 2024 SARS-COV-2 Immunization ( - 2023-25 season) 2024 Hepatitis B Immunization Aged Out No longer eligible based on patient's age to complete this topic Meningococcal Immunization (ACWY) Aged Out No longer eligible based on patient's age to complete this topic Rotavirus Immunization Aged Out No lo nger eligible based on patient's age to complete this topic Insurance MEDICARE [facility] Care Teams Organic Extractions Technician Relationship Specialty Start Date End Date Vira Mcfarland MD [address] [place] [address] PCP - General Family Medicine 03/09/17
--- OUTSIDE RECORDS SUMMARY | 2024-11-16 18:50 | XMS_ITS | Encounter Summary ---
Author Organization [facility] Address [address] [place] [address] Care Team Providers Care Marketing Communications Associate Name Role Phone Vira Mcfarland MD Primary Care Provider [phone] Encounter Details Date Type Department Care Team (Late st Contact Info) Description 07/01/2020 Orders Only [facility] Cardiology [address] [facility] [address] [place] [id number] Yves Arce MD [address] [facility] [address] [place] [address] Social History Tobacco Use Types Packs/Day Years Used Date Smoking Tobacco: Never Smokeless Tobacco: Never Alcohol Use Standard Drinks/Week Comments No 0 (1 standard drink = 0.6 oz pur e alcohol) Comments Unknown Sex and Gender Information Value Date Recorded Sex Assigned at Not on file Legal Sex Female 10:02 AM PHARMACY TECHNICIAN INFUSION Gender Identity Not on file Sexual Orientation Not on file documented as of this encounter Plan of Treatment Not on file documented as of this encounter Procedures Procedure Name Priority Date/Time Associated Diagnosis Comments CARDIOLOGY DOCUMENT SCAN Routine 07/01/2020 documented in this encounter Results * SCAN - CARDIOLOGY (07/01/2020) Anatomical Region Laterality Modality Other us Yves Arce MD [facility] PROC EDURES Final Result documented in this encounter Visit Diagnoses Not on filedocumented in this encounter Care Teams Marketing Communications Associate Relationship Specialty Start Date End Date Vira Mcfarland MD PCP - General Family Medicine 09/13/17 documented as of this encounter
--- OUTSIDE RECORDS SUMMARY | 2024-11-16 18:50 | XMS_ITS | Encounter Summary ---
Author Organization [facility] Address [address] [place] [address] Phone Care Team Providers Care Mime Artist Name Role Phone Vira Mcfarland MD Primary Care Provider [phone] Encounter Details Date Type Department Care Team (Latest Contact Info) Description 04/21/2023 11:00 AM CDT Procedure visit [facility] Otolaryngology [address] [place], [place] [address] [address] Shona Farfan Au.D. [address] [place] [id number] Sensorineural hearing loss (SNHL) of both ears (Primary Dx) Social History Tobacco Use Types Packs/Day Years Used Date Smoking Tobacco: Never Smokeless Tobacco: Never Alcohol Use Standard Drinks/Week Comments No 0 (1 standard drink = 0.6 oz pur e alcohol) Comments Unknown Sex and Gender Information Value Date Recorded Sex Assigned at Not on file Legal Sex Female 10:02 AM PACKAGE PICK UP Gender Identity Not on file Sexual Orientation Not on file documented as of this encounter Procedure Notes * Shona Farfan Au.D. - 04/21/2023 11:00 AM CDT Procedures Hearing Aid Fit Device: Patient fit with Phonak Audeo L50. Serial number(s): [id number]), [id number]) Commission Associate size: 2 MP Dome size: old small closed Retention string: Yes Battery: Rechargeable Warranty expiration: 07/03/2026 Programming: Adjustments were made for patient comfort: Patient was fit to NAL- NL2, bilaterally. Counseling: Patient counseled on care, maintenance, realistic expectations and adjustment period toown voice and amplification. Patient practiced insertion/removal and volume control. Paired aids tophone and downloaded libertad. Instructed patient on function and use of libertad. Patient practiced with appin office. Payment: Discussed purchase agreement. Patient signed and paid $1700. Follow Up: Patient to return in two weeks for follow up appointment. Audiologic Evaluation History: Patient was seen for an updated hearing test for hearing aid fitting. Otoscopy: Ear canals clear of cerumen bilaterally. Tympanometry: DNT Audiometry: Pure tone testing revealed mild sloping to moderately severe SNHL, bilaterally. Word Recognition Score (WRS) in the right ear is 88%, WRS in the left ear is 84%. Counseling: Patient was counseled on audiogram results. documented in this encounter Plan of Treatment Not on file documented as of this encounter Visit Diagnoses Diagnosis Sensorineural hearing loss (SNHL) of both ears- Primary documented in this encounter Care Teams Mime Artist Relationship Specialty Start Date End Date Vira Mcfarland MD PCP - General Family Medicine 09/13/17 documented as of this encounter
--- OUTSIDE RECORDS SUMMARY | 2024-11-16 18:50 | XMS_ITS | Encounter Summary ---
Author Organization [facility] Address [address] [address] Care Team Providers Care Staffing Associate Name Role Phone Vira Mcfarland MD Primary Care Provider [phone] Encounter Details Date Type Department Care Team (Late st Contact Info) Description 10/19/2017 Telephone [facility] [address] [address] Jared Barr MD [address] [facility] [address] [place] [address] Social History Tobacco Use Types Packs/Day Years Used Date Smoking Tobacco: Never Smokeless Tobacco: Never Alcohol Use Standard Drinks/Week Comments No 0 (1 standard drink = 0.6 oz pur e alcohol) Comments Unknown Sex and Gender Information Value Date Recorded Sex Assigned at Not on file Legal Sex Female 10:02 AM PARTNERSHIP MARKETING MANAGER Gender Identity Not on file Sexual Orientation Not on file documented as of this encounter Miscellaneous Notes * Telephone Encounter - Leslee Atwood MA - 10/19/2017 10:46 AM CST Spoke with Anca at pharmacy and she just wanted to make sure she was supposed to take 2 tablets daily because the script was sent for 30 tabs, told them she is supposed to take 2 daily and to use quantity 60 NERSHIP MARKETING MANAGER * Telephone Encounter - Janie Dc RN - 10/19/2017 9:48 AM PARTNERSHIP MARKETING MANAGER Will forward to MA's NERSHIP MARKETING MANAGER documented in this encounter Plan of Treatment Not on file documented as of this encounter Visit Diagnoses Not on filedocumented in this encounter Care Teams Staffing Associate Relationship Specialty Start Date End Date Vira Mcfarland MD PCP - General Family Medicine 09/13/17 documented as of this encounter
--- OUTSIDE RECORDS SUMMARY | 2024-11-16 18:50 | XMS_ITS | Encounter Summary ---
Author Organization [facility] Address [address] [place] [address] Phone Care Team Providers Care Pattern Attendant Name Role Phone Vira Mcfarland MD Primary Care Provider Reason for Visit * Reason Comments Hearing Loss Encounter Details Date Type Department Care Team (Latest Contact Info) Description 07/02/2022 3:00 PM CDT Office Visit [facility] [address] [place] [phone] Cherri Moore, SPORTS DOCTOR [address] [place] [phone] Sensorineural hearing loss (SNHL) of both ears (Primary Dx); Seasonal allergic rhinitis due to pollen Social History Tobacco Use Types Packs/Day Years Used Date Smoking Tobacco: Never Smokeless Tobacco: Never Alcohol Use Standard Drinks/Week Comments No 0 (1 standard drink = 0.6 oz pur e alcohol) Comments Unknown Sex and Gender Information Value Date Recorded Sex Assigned at Not on file 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 Primary care provider is Vira Mcfarland MD . Chief Complaint: Madeline Mancera is a 76 y.o. female with complaints of: Chief Complaint Patient presents with ??? Hearing Loss . HPI: She comes to clinic today established patient for evaluation of hearing function. She is knownto this office and has a history of sensorineural hearing loss. She does wear hearing aids to both ears. Today she denies any otalgia, otorrhea, or tinnitus. She does report intermittent off balance and has had a VNG and physical therapy for this problem. She reports using meclizine as needed. She reports that she feels like she is not hearing as well if she should with her hearing aids. She denies taking her hearing aids back for maintenance. She states she has had them since 2016. She does report a history of allergy and uses medication for this problem. She denies any recent illness or sickness. She denies any recent fever, vision changes, dysphagia, chest pain, cough, nausea, rash, insomnia, excessive thirst or hunger, hematuria, or easily bruising. She does report headaches, numbnessand tingling, indigestion, joint stiffness and pain, neck and back pain, and shortness of breath with exertion. Subjective: See HPI Past Medical/Surgical History Past Medical History: Diagnosis Date ??? Allergic rhinitis ??? Asthma ??? Dizziness ??? Headache ??? HL (hearing loss) ??? Hyperlipidemia ??? Hypertension ??? Sleep apnea Past Surgical History: Procedure Laterality Date ??? HYSTERECTOMY Past Family/Social History Family History Problem Relation Age of Onset ??? Heart failure Mother ??? Kidney disease Father Social History Socioeconomic History ??? Marital status: Single Spouse name: None ??? Number of children: None ??? Years of education: None ??? Highest education level: None Occupational History ??? None Tobacco Use ??? Smoking status: Never Smoker ??? Smokeless tobacco: Never Used Substance and Sexual Activity ??? Alcohol use: No ??? Drug use: None ??? Sexual activity: None Other Topics Concern ??? None Social History Narrative ??? None Social Determinants of Health Financial Resource Strain: ??? Difficulty of Paying Living Expenses: Food Insecurity: ??? Worried About Running Out of Food in the Last Year: ??? Ran Out of Food in the Last Year: Transportation Needs: ??? Lack of Transportation (Medical): ??? Lack of Transportation (Non-Medical): Physical Activity: ??? Days of Exercise per Week: ??? Minutes of Exercise per Session: Stress: ??? Feeling of Stress : Social Connections: ??? Frequency of Communication with Friends and Family: ??? Frequency of Social Gatherings with Friends and Family: ??? Attends Christian Services: ??? Active Member of Clubs or Organizations: ??? Attends Club or Organization Meetings: ??? Marital Status: Intimate Partner Violence: ??? Fear of Current or Ex-Partner: ??? Emotionally Abused: ??? Physically Abused: ??? Sexually Abused: Medications/Allergies/Immunizations Current Outpatient Medications Medication Sig Dispense Refill ??? albuterol HFA (PROVENTIL HFA,VENTOLIN HFA,PROAIR HFA) 90 mcg/actuation inhaler albuterol sulfate HFA 90 mcg/actuation aerosol inhaler INHALE 1 PUFF BY MOUTH EVERY 4 HOURS NEEDED FOR DIFFICULT BREATHING ??? ascorbic acid (VITAMIN C) 500 mg tablet,chewable ??? aspirin 81 mg tablet Take 81 mg by mouth daily. ??? benazepril (LOTENSIN) 40 mg tablet Take 40 mg by mouth daily. ??? budesonide-formoterol (SYMBICORT) 80-4.5 mcg/actuation inhaler Inhale 2 puffs 2 (two) times a day. Rinse mouth with water after use to reduce aftertaste and incidence of candidiasis. Do not swallow. ??? calcium carbonate (OS-FREDI) 650 mg calcium (1,625 mg) tablet Take 1 tablet by mouth daily. ??? cholecalciferol (VITAMIN D-3) 1,000 unit Take 1,000 Units by mouth daily. ??? cyanocobalamin (Vitamin B-12) 1,000 mcg tablet Take 100 mcg by mouth daily. ??? estradioL (ESTRACE) 0.5 mg tablet estradiol 0.5 mg tablet TAKE 1 TABLET BY MOUTH EVERY OTHER DAY ??? estrogens, conjugated, (PREMARIN) 0.625 mg tablet Take 0.625 mg by mouth daily. Take daily for 21 days then do not take for 7 days. ??? fenofibrate nanocrystallized (TRICOR,TRIGLIDE) 48 mg tablet Take 2 tablets (96 mg total) by mouth daily. 30 tablet 11 ??? fish oil-dha-epa 1,200-144-216 mg capsule Take by mouth. ??? hydroCHLOROthiazide (HYDRODIURIL) 12.5 mg tablet Take 12.5 mg by mouth daily ??? ipratropium (ATROVENT) 21 mcg (0.03 %) nasal spray ipratropium bromide 21 mcg (0.03 %) nasal spray ??? levothyroxine (SYNTHROID, LEVOTHROID) 88 mcg tablet Take 88 mcg by mouth daily. ??? lisinopriL (PRINIVIL,ZESTRIL) 10 mg tablet lisinopril 10 mg tablet TAKE 1 TABLET BY MOUTH DAILY ??? magnesium gluconate 200 mg tablet 200 mg. ??? metoprolol tartrate (LOPRESSOR) 25 mg immediate release tablet metoprolol tartrate 25 mg tablet TK 1 T PO BID ??? metoprolol XL (TOPROL-XL) 50 mg 24 hr tablet Take 50 mg by mouth daily. ??? montelukast (SINGULAIR) 10 mg tablet Take 10 mg by mouth nightly. ??? omeprazole (PriLOSEC) 40 mg capsule ??? polycarbophil (FIBERCON) 625 mg tablet Take 625 mg by mouth daily. ??? valACYclovir (VALTREX) 500 mg tablet Take 500 mg by mouth daily. ??? zinc 50 mg tablet Take by mouth. No current facility-administered medications for this visit. Allergies: Fluorescein-benoxinate, Prochlorperazine, Cadexomer iodine, Latex, Adhesive tape-silicones, Iodine, Potassium iodide, and Prochlorperazine edisylate, Immunizations: Immunization History Administered Date(s) Administered ??? Pfizer SARS-CoV-2 Vaccination (12+ yrs) PURPLE 01/12/2021, 02/05/2021 Review of Systems See HPI Vital Signs: Vitals Resp 17 Ht 162.6 cm (5' 4 ) Wt 63.5 kg (140 lb) BMI 24.03 kg/m?? PHYSICAL EXAMINATION: Physical Exam HENT: Head: Normocephalic and atraumatic. Right Ear: Tympanic membrane, ear canal and external ear normal. Left Ear: Tympanic membrane, ear canal and external ear normal. Nose: No congestion or rhinorrhea. Mouth/Throat: Mouth: Mucous membranes are moist. Eyes: Conjunctiva/sclera: Conjunctivae normal. Pulmonary: Effort: Pulmonary effort is normal. Musculoskeletal: General: Normal range of motion. Cervical back: Normal range of motion and neck supple. No muscular tenderness. Lymphadenopathy: Cervical: No cervical adenopathy. Skin: General: Skin is warm and dry. Neurological: General: No focal deficit present. Mental Status: She is alert and oriented to person, place, and time. Psychiatric: Mood and Affect: Mood normal. Behavior: Behavior normal. ASSESSMENT & PLAN Problem List Items Addressed This Visit None Madeline is a 75-year-old female who presents to the office today for a test of her hearing function. She did have a complete audiogram today which shows a bilateral mild sensorineural hearing loss sloping to a moderate to moderately severe bilateral sensorineural hearing loss. Her middle ear function was normal today. In comparison to her last hearing test that she had done here in 2020 it is very comparable and not much has changed. I did recommend that she take her hearing aids back to where shepurchased them from and see if they could perform some maintenance on them. She wanted to set up a hearing aid evaluation for here to talk to our audiologists regarding her hearing aids. I recommended not using Q-tips to clean her ears. We also discussed protecting her hearing from loud noises by using appropriate ear protection when needed. She verbalizes understanding of all instructions given and agrees with this treatment plan. She will call the office with any questions, concerns, or problems. Cherri Moore NP documented in this encounter Plan of Treatment Not on file documented as of this encounter Visit Diagnoses Diagnosis Sensorineural hearing loss (SNHL) of both ears- Primary Seasonal allergic rhinitis due to pollen documented in this encounter Discontinued Medications Medication Sig Discontinue Reason Start Date End Da te pantoprazole DR (PROTONIX) 40 mg EC tablet Take 40 mg by mouth daily. Alternate therapy 07/02/2022 acidophilus-pectin, citrus 100 million cell-10 mg capsule Take by mouth. Therapy completed 07/02/2022 eszopiclone (LUNESTA) 3 mg tablet eszopiclone 3 mg tablet Therapy completed 07/02/2022 naproxen (NAPROSYN) 500 mg tablet naproxen 500 mg tablet Therapy completed 022 naproxen (NAPROSYN,ALEVE) 220 mg tablet Take by mouth 2 (two) times a day with meals. Therapy completed 07/02/2022 documented as of this encounter Historical Medications * This list may reflect changes made after this encounter. omeprazole (PriLOSEC) 40 mg capsule 06/29/2022 metoprolol tartrate (LOPRESSOR) 25 mg immediate release tablet metoprolol tartrate 25 mg tablet TK 1 T PO BID ipratropium (ATROVENT) 21 mcg (0.03 %) nasal spray ipratropium bromide 21 mcg (0.03 %) nasal spray lisinopriL (PRINIVIL,ZESTRI L) 10 mg tablet lisinopril 10 mg tablet TAKE 1 TABLET BY MOUTH DAILY estradioL (ESTRACE) 0.5 mg tablet estradiol 0.5 mg tablet TAKE 1 TABLET BY MOUTH EVERY OTHER DAY albuterol HFA (PROVENTIL HFA,VENTOLIN HFA,PROAIR HFA) 90 mcg/actuation inhaler albuterol sulfate HFA 90 mcg/actuation aerosol inhaler INHALE 1 PUFF BY MOUTH EVERY 4 HOURS NEEDED FOR DIFFICULT BREATHING naproxen (NAPROSYN) 500 mg tablet naproxen 500 mg tablet 2 eszopiclone (LUNESTA) 3 mg tablet eszopiclone 3 mg tablet 2 added in this encounter Care Teams Pattern Attendant Relationship Specialty Start Date End Date Vira Mcfarland MD PCP - General Family Medicine 09/13/17 documented as of this encounter
--- OUTSIDE RECORDS SUMMARY | 2024-11-16 18:50 | XMS_ITS | Encounter Summary ---
Author Organization [facility] Address [address] [place] [address] Phone Care Team Providers Care Earrings Fabricator Name Role Phone Vira Mcfarland MD Primary Care Provider [phone] Encounter Details Date Type Department Care Team (Latest Contact Info) Description 06/02/2021 2:30 PM CDT Procedure visit [facility] Otolaryngology [address] [place], [place] [address] [address] Miryam Trevino Au.D. 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 - 06/02/2021 2:30 PM CDT Procedures Audiologic Evaluation Referring physician: Patient referred by LAUREN Esparza History: Patient is here for a hearing check. She thinks there may have been a further decline in hearing since her previous test in 2019. She has hearing aids for both ears. She reported occasional tinnitus for both ears. She also reported lightheadedness in the mornings for years. She denied any aural pain or pressure. Otoscopy: Ear canals clear of cerumen bilaterally. Tympanometry: Right:Type A tymp and is consistent with normal middle ear function. Left: Type A tymp and is consistent with normal middle ear function. Audiometry: Pure tone testing revealed a mild sloping to moderately-severe SNHL, bilaterally. Word Recognition Score (WRS) in the right ear is 92%, WRS in the left ear is 96%. Recommendations: -Patient will follow-up with LAUREN Esparza for test results and recommendations. -Repeat testing per Nurse Practitioner request. documented in this encounter Plan of Treatment Not on file documented as of this encounter Visit Diagnoses Diagnosis Sensorineural hearing loss (SNHL) of both ears- Primary documented in this encounter Care Teams Earrings Fabricator Relationship Specialty Start Date End Date Vira Mcfarland MD PCP - General Family Medicine 09/13/17 documented as of this encounter
--- OUTSIDE RECORDS SUMMARY | 2024-11-16 18:50 | XMS_ITS | Encounter Summary ---
Author Organization [facility] Address [address] [place] [address] Phone Care Team Providers Care Slaughterer Religious Ritual Name Role Phone Vira Mcfarland MD Primary Care Provider Encounter Details Date Type Department Care Team (Latest Contact Info) Description 06/30/2023 8:30 AM CDT Procedure visit [facility] Ot[facility] [place] [address] Shona Farfan Au.D. 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 - 06/30/2023 8:30 AM CDT Procedures Hearing Aid Check Reports: Patient reports that she is doing well with her hearing aids. Equipment status: Hearing aid domes were changed to a 6mm closed. She will follow up one last time before the end of her trial. documented in this encounter Plan of Treatment Not on file documented as of this encounter Visit Diagnoses Diagnosis Fitting and adjustment of hearing aid- Primary documented in this encounter Care Teams Slaughterer Religious Ritual Relationship Specialty Start Date End Date Vira Mcfarland MD PCP - General Family Medicine 09/13/17 documented as of this encounter
--- OUTSIDE RECORDS SUMMARY | 2024-11-16 18:50 | XMS_ITS | Encounter Summary ---
Author Organization [facility] Address [address] [place] [address] Phone Care Team Providers Care Air Moving Technician Name Role Phone Vira Mcfarland MD Primary Care Provider [phone] Encounter Details Date Type Department Care Team (Late st Contact Info) Description 08/17/[address] 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 Has not used. No Prior Auth No copay No deductible No co-insurance Hearing Aid Insurance Verification Worksheet Plan Verification [x] Needle Punch Machine Operator name Tanvi Kessler Reference # [] Online Claim Meat Pumper (see cut/paste below) Plan Benefit [] No coverage Maximum allowable benefit $ 2500 max Currently eligible? [x] Yes [] No Benefit covers (port heiden): One aid / Two aids Every: 1 year 2 years 3 years 5 years Other Cost share allowance if patient choses technology beyond their benefit? [] Yes [] No Patient Responsibility Deductible zero Remaining Deductible Co-Pay Zero Co-Insurance__Zero Maximum out of pocket Amount Max out of Pocket Met? Plan Requirements (check if required) [] Prior Authorization (Auth # ) [] Prior Authorization not required [] Medicare denial [] Referral [] Medical Clearance from an ENT Only [] Prescription/Order/Recommendation from: [] [] Ana [] DO [] ENT [] PA [] FIELD COIL WINDER [] Actual invoice required [] Other: documented in this encounter Plan of Treatment Not on file documented as of this encounter Visit Diagnoses Not on filedocumented in this encounter Care Teams Air Moving Technician Relationship Specialty Start Date End Date Vira Mcfarland MD PCP - General Family Medicine 09/13/17 documented as of this encounter
--- OUTSIDE RECORDS SUMMARY | 2024-11-16 18:50 | XMS_ITS | Encounter Summary ---
Author Organization [facility] Address [address] [place] [address] Phone Care Team Providers Care Funeral Arrangement Director Name Role Phone Vira Mcfarland MD Primary Care Provider Encounter Details Date Type Department Care Team (Latest Contact Info) Description 07/20/2023 8:30 AM CDT Procedure visit [facility] Otolaryngology [address] [place], [place] [address] [address] Shona Farfan Au.D. 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 - 07/20/2023 8:30 AM CDT Procedures Hearing Aid Check Reports: Patient reports that she is still having discomfort from the hearing aids. Equipment status: Domes were changed to Oticon power 6mm. She felt that these fit better in her ear. Patient stated that she will keep these devices. She was informed that she has until the end of the day to decide if she would like to exchange as it is the end of her trial period. documented in this encounter Plan of Treatment Not on file documented as of this encounter Visit Diagnoses Diagnosis Fitting and adjustment of hearing aid- Primary documented in this encounter Care Teams Funeral Arrangement Director Relationship Specialty Start Date End Date Vira Mcfarland MD PCP - General Family Medicine 09/13/17 documented as of this encounter
--- OUTSIDE RECORDS SUMMARY | 2024-11-16 18:50 | XMS_ITS | Encounter Summary ---
Author Organization [facility] Address [address] [place] [address] Phone Care Team Providers Care Machine Tailer Name Role Phone Vira Mcfarland MD Primary Care Provider [phone] Encounter Details Date Type Department Care Team (Latest Contact Info) Description 05/05/2023 11:30 AM CDT Procedure visit [facility] Otolaryngology [address] [place], [place] [address] [address] Shona Farfan Au.D. 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 - 05/05/2023 11:30 AM CDT Procedures Hearing Aid Check Reports: Patient reports that she is doing well with her hearing aids. Equipment status: We went over cleaning and maintenance of hearing aids. Patient is satisfied with her hearing aids. She will follow up as needed. documented in this encounter Plan of Treatment Not on file documented as of this encounter Visit Diagnoses Diagnosis Fitting and adjustment of hearing aid- Primary documented in this encounter Care Teams Machine Tailer Relationship Specialty Start Date End Date Vira Mcfarland MD PCP - General Family Medicine 09/13/17 documented as of this encounter
--- OUTSIDE RECORDS SUMMARY | 2024-11-16 18:50 | XMS_ITS | Encounter Summary ---
Author Organization [facility] Address [address] [place] [address] Phone Care Team Providers Care Cryptologic Technician Name Role Phone Vira Mcfarland MD Primary Care Provider [phone] Encounter Details Date Type Department Care Team (Latest Contact Info) Description 06/08/2023 8:00 AM CDT Procedure visit [facility] Otolaryngology [address] [place] [address] Shona Farfan Au.D. 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 - 06/08/2023 8:00 AM CDT Procedures Hearing Aid Fit Device: Patient fit with [employer] Constance AI 16. Serial number(s): [id number]), [id number]) Combat Control size: 2 60 Dome size: small closed Retention string: Yes Battery: Rechargeable Warranty expiration: 08/27/2026 Programming: Adjustments were made for patient comfort: Patient was fit to NAL- NL2 targets bilaterally. . Counseling: Patient counseled on care, maintenance, realistic expectations and adjustment period toown voice and amplification. Patient practiced insertion/removal and volume control. Paired aids tophone and downloaded libertad. Instructed patient on function and use of libertad. Patient practiced with appin office. Payment: Discussed updated purchase agreement. Hearing Aids were exchanged. Follow Up: Patient to return in two weeks for follow up appointment. documented in this encounter Plan of Treatment Not on file documented as of this encounter Visit Diagnoses Diagnosis Fitting and adjustment of hearing aid- Primary documented in this encounter Care Teams Cryptologic Technician Relationship Specialty Start Date End Date Vira Mcfarland MD PCP - General Family Medicine 09/13/17 documented as of this encounter
--- OUTSIDE RECORDS SUMMARY | 2024-11-16 18:50 | XMS_ITS | Encounter Summary ---
Author Organization [facility] Address [address] [place] [address] Phone Care Team Providers Care Career Professional Name Role Phone Vira Mcfarland MD Primary Care Provider Encounter Details Date Type Department Care Team (Late st Contact Info) Description 04/01/2023 Documentation [facility] Otolaryngology [address] [place] [address], [address] [place] [address] Izabel Kinney Social History Tobacco Use Types Packs/Day Years Used Date Smoking Tobacco: Never Smokeless Tobacco: Never Alcohol Use Standard Drinks/Week Comments No 0 (1 standard drink = 0.6 oz pur e alcohol) Comments Unknown Sex and Gender Information Value Date Recorded Sex Assigned at Not on file 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 The details may be found below. Hearing Aid Benefit Details Maximum allowable benefit $2500 Currently eligible? Yes Benefit covers: [] One aid [] Two aids Every: 5 years Patient Responsibility Co-Pay Amount $ Co-Insurance Percentage % Individual Deductible $350.00 Remaining Deductible $350.00 Family Deductible $700.00 Remaining Deductible $700.00 Individual maximum out of pocket amount $6,000.00 Remaining $5,812.26 Family maximum out of pocket amount $ Remaining $ All amounts above are as of 04/01/2023 Prior Authorization is not required. Plan Verification Documentation [x] Phone [] Live Chat Truck Driver Teamster: Chastity Reference #: [id number] [] Online Claim Research Administrator (see cut/paste below) documented in this encounter Plan of Treatment Not on file documented as of this encounter Visit Diagnoses Not on filedocumented in this encounter Care Teams Career Professional Relationship Specialty Start Date End Date Vira Mcfarland MD PCP - General Family Medicine 09/13/17 documented as of this encounter
--- OUTSIDE RECORDS SUMMARY | 2024-11-16 18:50 | XMS_ITS | Encounter Summary ---
Author Organization [facility] Address [address] [place] [address] Care Team Providers Care Sustainability Analyst Name Role Phone Vira Mcfarland MD Primary Care Provider [phone] Reason for Visit * Auth/Cert (Routine) Specialty Diagnoses / Procedures Referred By Contac t Referred To Contact Diagnoses Change in bowel habit Abdominal pain Colon cancer screening Rectal bleeding Change in bowel habit [R19.4] Abdominal pain [R10.9] Colon cancer screening [Z12.11] Rectal bleeding [K62.5] Procedures SC COLONOSCOPY FLX DX W/COLLJ SPEC WHEN PFRMD COLONOSCOPY Referral ID Status Reason Start Date Expiration Date Visits Re quested Visits Authorized [id number] 1 1 Encounter Details Date Type Department Care Team (Late st Contact Info) Description 08/30/2023 11:15 AM CDT Anesthesia Event [facility] Endoscopy [address] [place] [address] Nikki Gómez MD [address] [facility] [address] [place] [address] Anesthesia Record Procedure Summary Procedure Name Responsible Anesthesiologist Anesthesia Start Time Anesthesia Stop Time COLON BIOPSY (Left) Nikki Gómez MD 08/30/23 1 115 08/30/23 1149 Events Date Time Event Comment 08/30/2023 1030 1033 AN Equip Check 1114 In Room 1115 An Start 1115 An Start Data 1116 Start Supplemental O2 1119 Patient Positioned Laterally 1122 An Induction The patient was reevaluated immediately before moderate or deep sedation use and before anesthesia induction. 1122 Anesthesia Ready 1124 Proc Start 1142 an stop data 1143 Proc Fin 1145 Out of Room 1149 Handoff to RN I completed my handoff to the receiving nurse during which we: 1. Patient identified 2. Responsible provider identified 3. Pertinent medical history reviewed 4. Procedure type and surgical course discussed 5. Intraoperative anesthetic management and any significant issues discussed 6. Expectations and concerns for postop period discussed 7. Questions solicited from receiving nurse 8. Patient disposition at the time of handoff: No value filed. 1149 An Stop Meds Name Total propofol 200 mg glycopyrrolate 0.2 mg Lidocaine IV 2 % 5 mL sodium chloride 0.9% infusion 600 mL * Agents Name O2 N2O Air * Blood No blood administrations on file. 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 Gender Identity Not on file Sexual Orientation Not on file documented as of this encounter OR Notes * Anesthesia Postprocedure Evaluation - Nikki Gómez MD - 08/30/2023 11:53 AM CDT Patient: Madeline Mancera Procedure Summary Date: 08/30/23 Room / Location: [facility] ENDOSCOPY ROOM [facility] ENDOSCOPY Anesthesia Start: 1115 Anesthesia Stop: 1149 Procedure: COLON BIOPSY (Left) Diagnosis: Change in bowel habit Abdominal pain Colon cancer screening Rectal bleeding (Change in bowel habit [R19.4]) (Abdominal pain [R10.9]) (Colon cancer screening [Z12.11]) (Rectal bleeding [K62.5]) Providers: Blue Almaraz MD Responsible Provider: Nikki Gómez MD Anesthesia Type: general ASA Status: 3 Anesthesia Type: general Last vitals BP 147/73 (BP Location: Left arm) Pulse 72 Temp 36.4 ??C (97.5 ??F) (Temporal) Resp 19 [id number]% Anesthesia Post Evaluation Patient location during evaluation: PACU Patient participation: complete - patient participated Level of consciousness: fully awake Pain score: 0 Pain management: adequate Airway patency: adequate Evidence of recall: no Cardiovascular status: acceptable Respiratory status: acceptable Hydration status: acceptable Pt is: normothermic Nausea/Vomiting status: none No notable events documented. * Anesthesia Preprocedure Evaluation - Nikki Gómez MD - 08/30/2023 10:30 AM CDT Images from the original note were not included. Anesthesia Evaluation Madeline Mancera is a 77 y.o. 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 Allergies Allergen Reactions Fluorescein-Benoxinate Swelling Eyes swelling Prochlorperazine Anaphylaxis and Other (See comments) Neck turning or spasm for muscle, Cadexomer Iodine Rash Latex Rash Mild rash if latex on skin for extended period Adhesive Tape-Silicones Iodine Unknown Potassium Iodide Unknown Prochlorperazine Edisylate Unknown Taking? Last Dose Start Date End Date Provider albuterol HFA (PROVENTIL HFA,VENTOLIN HFA,PROAIR HFA) 90 mcg/actuation inhaler -- -- -- Estephania Fontenot MD ascorbic acid (VITAMIN C) 500 mg tablet,chewable -- -- -- Estephania Fontenot MD budesonide-formoterol (SYMBICORT) 80-4.5 mcg/actuation inhaler -- -- -- Estephania Fontenot MD cholecalciferol (VITAMIN D-3) 1,000 unit -- -- -- Estephania Fontenot MD cholestyramine (QUESTRAN) 4 gram powder -- 07/29/23 07/28/24 Blue Almaraz MD Take 1 packet (4 g total) by mouth daily Dissolve in 8 oz of liquid and drink before a meal cyanocobalamin (Vitamin B-12) 1,000 mcg tablet -- -- -- Estephania Fontenot MD estradioL (ESTRACE) 0.5 mg tablet -- -- -- Estephania Fontenot MD estrogens, conjugated, (PREMARIN) 0.625 mg tablet -- -- -- Estephania Fontenot MD fenofibrate nanocrystallized (TRICOR,TRIGLIDE) 48 mg tablet -- 10/18/17 -- Ezekiel Guan MD Take 2 tablets (96 mg total) by mouth daily. fish oil-dha-epa 1,200-144-216 mg capsule -- -- -- Estephania Fontenot MD hydroCHLOROthiazide (HYDRODIURIL) 12.5 mg tablet -- 04/30/21 -- Estephania Fontenot MD ipratropium (ATROVENT) 21 mcg (0.03 %) nasal spray -- -- -- Estephania Fontenot MD levothyroxine (SYNTHROID, LEVOTHROID) 88 mcg tablet -- -- -- Estephania Fontenot MD lisinopriL (PRINIVIL,ZESTRIL) 10 mg tablet -- -- -- Estephania Fontenot MD metoprolol tartrate (LOPRESSOR) 25 mg immediate release tablet -- -- -- Estephania Fontenot MD montelukast (SINGULAIR) 10 mg tablet -- -- -- Estephania Fontenot MD nortriptyline (PAMELOR) 10 mg capsule -- 07/29/23 07/28/24 Blue Almaraz MD Take 1 capsule (10 mg total) by mouth nightly omeprazole (PriLOSEC) 40 mg capsule -- 06/29/22 -- Estephania Fontenot MD valACYclovir (VALTREX) 500 mg tablet -- -- -- Estephania Fontenot MD Current Facility-Administered Medications: ondansetron (ZOFRAN) injection 4 mg, 4 mg, intravenous, Q6H PRN sodium chloride 0.9% flush 0.5-20 mL, 0.5-20 mL, intra-catheter, PRN sodium chloride 0.9% infusion, 30 mL/hr, intravenous, Continuous Social History Tobacco Use Smoking Status Never Smokeless Tobacco Never Alcohol Use: Not At Risk (08/30/2023) AUDIT-C Frequency of Alcohol Consumption: Never Average Number of Drinks: Patient does not drink Frequency of Binge Drinking: Never Substance and Sexual Activity Drug Use Never Family History Problem Relation Age of Onset Heart failure Mother Kidney disease Father Vitals: 08/30/23 0955 Temp: 36.4 ??C (97.5 ??F) PT: No results found for requested labs within last 30 days. INR: No results found for requested labs within last 30 days. APTT: No results found for requested labs within last 30 days. Hgb A1C: No results found for requested labs within last 30 days. CBC RBC: No results found for requested labs within last 30 days. RDW: No results found for requested labs within last 30 days. MCHC: No results found for requested labs within last 30 days. MCH: No results found for requested labs within last 30 days. MCV: No results found for requested labs within last 30 days. Hct: No results found for requested labs within last 30 days. Hgb: No results found for requested labs within last 30 days. WBC: No results found for requested labs within last 30 days. MPV: No results found for requested labs within last 30 days. Platelets: No results found for requested labs within last 30 days. RDW CV: No results found for requested labs within last 30 days. RDW Sd: No results found for requested labs within last 30 days. BMP Glucose: No results found for requested labs within last 30 days. Calcium: No results found for requested labs within last 30 days. Sodium: No results found for requested labs within last 30 days. Potassium: No results found for requested labs within last 30 days. CO2: No results found for requested labs within last 30 days. Chloride: No results found for requested labs within last 30 days. BUN: No results found for requested labs within last 30 days. Creatinine: No results found for requested labs within last 30 days. DOS Physical Exam Medical history, medications, and allergies reviewed. Attestation: With today's edits, I endorse the findings of the procedural assessment dated: 08/30/2023. Airway Exam: Mallampati: II Cervical ROM: FROM TM distance: >4 Cardiovascular Exam: Rate: regular Rhythm: regular Negative for Murmur Pulmonary Exam: LCTA, bilat EENT Exam: trachea midline Dental Exam: Appears intact Current state: Patient's current state is cooperative. Anesthesia Plan ASA 3 My patient is approved for the Anesthesia Controlled Medication protocol when under care of a LAUNCH ENGINEER Planned anesthesia: General Informed Consent: Discussed plan with LAUNCH ENGINEER. Anesthesia plan and risks discussed with patient. Consent and Attending signature: I and/or my designee have discussed the anesthesia plan, benefits, possible alternatives, parental presence at time of induction (if indicated), and clinically relevant risks that may include dental injury, unintentional awareness, and/or other complications. The patient and/or parent/legal guardian understand, and agree to proceed. All questions answered. documented in this encounter Plan of Treatment Not on file documented as of this encounter Visit Diagnoses Not on filedocumented in this encounter Administered Medications Inactive Administered Medications - up to 3 most recent administrations Medication Order MAR Action Action Date Dose Rate Site glycopyrrolate (ROBINUL) injection intravenous, Administer over 1 Minutes, As needed, Starting on Wed08/30/23 at 1131, Anesthesia Intra-op Given 08/30/2023 11:31 AM CDT 0.2 mg lidocaine (XYLOCAINE) 20 mg/mL (2 %) injection intravenous, As needed, Starting on Wed08/30/23 at 1122, Anesthesia Intra-op, Indications: Administration of Local AnesthesiaIndications:Administrat ion of Local Anesthesia Given 08/30/2023 11:22 AM CDT 5 mL propofoL (DIPRIVAN) 10 mg/mL IV intravenous, As needed, Starting on Wed08/30/23 at 1122, Anesthesia Intra-op Given 08/30/2023 11:39 AM CDT 20 mg Given 08/30/2023 11:35 AM CDT 20 mg Given 08/30/2023 11:31 AM CDT 30 mg sodium chloride 0.9% infusion 30 mL/hr, intravenous, Continuous, Starting on Wed08/30/23 at 1030 Rate/Dose Verify 08/30/2023 11:15 AM CDT 30 mL/hr New Bag 08/30/2023 10:47 AM CDT 30 mL/hr 30 mL/hr documented in this encounter Care Teams Sustainability Analyst Relationship Specialty Start Date End Date Vira Mcfarland MD PCP - General Family Medicine 09/13/17 documented as of this encounter
--- OUTSIDE RECORDS SUMMARY | 2024-11-16 18:50 | XMS_ITS | Encounter Summary ---
Author Organization [facility] Address [address] [place] [address] Care Team Providers Care Electronic Equipment Installer Name Role Phone Vira Mcfarland MD Primary Care Provider [phone] Encounter Details Date Type Department Care Team (Late st Contact Info) Description 07/01/2019 Orders Only [facility] Cardiology [address] [facility] [address] [place] [address] Yves Arce MD [address] [facility] [address] [place] [address] Social History Tobacco Use Types Packs/Day Years Used Date Smoking Tobacco: Never Smokeless Tobacco: Never Alcohol Use Standard Drinks/Week Comments No 0 (1 standard drink = 0.6 oz pur e alcohol) Comments Unknown Sex and Gender Information Value Date Recorded Sex Assigned at Not on file 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 Gender Identity Not on file Sexual Orientation Not on file documented as of this encounter Plan of Treatment Not on file documented as of this encounter Procedures Procedure Name Priority Date/Time Associated Diagnosis Comments CARDIOLOGY DOCUMENT SCAN Routine 07/01/2019 documented in this encounter Results * SCAN - CARDIOLOGY (07/01/2019) Anatomical Region Laterality Modality Other us Yves Arce MD CV CARDIAC SERVICES PROC EDURES Final Result documented in this encounter Visit Diagnoses Not on filedocumented in this encounter Care Teams Electronic Equipment Installer Relationship Specialty Start Date End Date Vira Mcfarland MD PCP - General Family Medicine 09/13/17 documented as of this encounter
--- OUTSIDE RECORDS SUMMARY | 2024-11-16 18:50 | XMS_ITS | Encounter Summary ---
Author Organization [facility] Address [address] [place] [address] Phone Care Team Providers Care Manager Sap Name Role Phone Vira Mcfarland MD Primary Care Provider [phone] Reason for Visit * Reason Onset Date Comments Follow-up 08/31/2023 Encounter Details Date Type Department Care Team (Late st Contact Info) Description 08/31/2023 Telephone [facility] Gastroenterology [address] [facility] [address] [place] [address] [place] [address] Loretta Kelsey CNA Follow-up Social History Tobacco Use Types Packs/Day Years [...] on file 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 Left patient a message to call back office. documented in this encounter Plan of Treatment Not on file documented as of this encounter Visit Diagnoses Not on filedocumented in this encounter Care Teams Manager Sap Relationship Specialty Start Date End Date Vira Mcfarland MD PCP - General Family Medicine 09/13/17 documented as of this encounter
--- OUTSIDE RECORDS SUMMARY | 2024-11-16 18:50 | XMS_ITS | Encounter Summary ---
Author Organization [facility] Address [address] [place] [address] Phone Care Team Providers Care Continuous Still Operator Name Role Phone Vira Mcfarland MD Primary Care Provider Encounter Details Date Type Department Care Team (Latest Contact Info) Description 05/28/2023 10:30 AM CDT Procedure visit [facility] Otolaryngology [address] [place], [place] [address] [address] Shona Farfan Au.D. 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 - 05/28/2023 10:30 AM CDT Procedures Hearing Aid Check Reports: Patient reports that she is doing well with the hearing aids, but would like her hearing aids to have fall detection capabilities. Equipment status: We will exchange the hearing aids for [employer]. documented in this encounter Plan of Treatment Not on file documented as of this encounter Visit Diagnoses Diagnosis Fitting and adjustment of hearing aid- Primary documented in this encounter Care Teams Continuous Still Operator Relationship Specialty Start Date End Date Vira Mcfarland MD PCP - General Family Medicine 09/13/17 documented as of this encounter
--- OUTSIDE RECORDS SUMMARY | 2024-11-16 18:50 | XMS_ITS | Encounter Summary ---
Author Organization [facility] Address [address] [place] [address] Phone Care Team Providers Care Basket Weaver Name Role Phone Vira Mcfarland MD Primary Care Provider [phone] Encounter Details Date Type Department Care Team (Latest Contact Info) Description 04/05/2023 11:00 AM CDT Procedure visit [facility] Otolaryngology [address] [place], [place] [address] [address] Shona Farfan Au.D. 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 - 04/05/2023 11:00 AM CDT Procedures Hearing Aid Evaluation Patient in to discuss hearing aid options. Reviewed audio. Communication Needs: Patient reports difficulties hearing in noise. She currently wears Phonak RICs. She has an iPhone and is interested in connectivity. Counseling: Discussed hearing aid styles and technology options, as well as pricing and realistic expectations. Recommendations/Device Selection: We will order Sabino V[address]quez [facility] R in [facility]. Plan Note: Appointment set for hearing aid fitting. documented in this encounter Plan of Treatment Not on file documented as of this encounter Visit Diagnoses Diagnosis Sensorineural hearing loss (SNHL) of both ears- Primary documented in this encounter Care Teams Basket Weaver Relationship Specialty Start Date End Date Vira Mcfarland MD PCP - General Family Medicine 09/13/17 documented as of this encounter
--- OUTSIDE RECORDS SUMMARY | 2024-11-16 18:50 | XMS_ITS | Encounter Summary ---
Author Organization [facility] Address [address] [place] [address] Phone Care Team Providers Care Quill Worker Name Role Phone Vira Mcfarland MD Primary Care Provider [phone] Reason for Visit * Reason Onset Date Comments Medical Records Request 08/02/2023 Encounter Details Date Type Department Care Team (Late st Contact Info) Description 08/02/2023 Documentation 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 [facility] Amornsawadwattana, Surachai, MD Nir, Farrah Erlinda, LIQUOR DEPARTMENT MANAGER Obtain GI clinic notes, endoscopy, imaging report, pathology report from [facility]. Thanks. * Farrah Loyola CMA - 08/02/2023 2:04 PM CDT [facility] - Medical Records department, automated phone system was not responding. and * Farrah Loyola CMA - 08/02/2023 2:04 PM CDT Received records from [facility] - Office notes from 02/22/2012 and EGD from 03/03/2012. Sent to provider for review and sent to scanning. documented in this encounter Plan of Treatment Not on file documented as of this encounter Visit Diagnoses Not on filedocumented in this encounter Care Teams Quill Worker Relationship Specialty Start Date End Date Vira Mcfarland MD PCP - General Family Medicine 09/13/17 documented as of this encounter
--- OUTSIDE RECORDS SUMMARY | 2024-11-16 18:50 | XMS_ITS | Encounter Summary ---
Author Organization [facility] Healthcare Address [address] [place] [address] Care Team Providers Care Fabric Worker Leader Name Role Phone Vira Mcfarland MD Primary Care Provider [phone] Reason for Visit * Auth/Cert (Routine) Specialty Diagnoses / Procedures Referred By Contac t Referred To Contact Diagnoses Change in bowel habit Abdominal pain Colon cancer screening Rectal bleeding Change in bowel habit [R19.4] Abdominal pain [R10.9] Colon cancer screening [Z12.11] Rectal bleeding [K62.5] Procedures SD COLONOSCOPY FLX DX W/COLLJ SPEC WHEN PFRMD COLONOSCOPY Referral ID Status Reason Start Date Expiration Date Visits Re quested Visits Authorized [id number] 1 1 Encounter Details Date Type Department Care Team (Latest Contact Info) Description 08/30/2023 9:46 AM CDT - 08/30/2023 12:39 PM CDT Hospital Encounter [facility] Endoscopy [id number] [address] Blue Avilez MD [address] [facility] [address] [place] [address] Change in bowel habit; Abdominal pain; Colon cancer screening; Rectal bleeding Discharge Disposition: Discharge to home or self care Social History Tobacco Use Types Packs/Day Years [...] on file Legal Sex Female 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 [employer] Gender Identity Not on file Sexual Orientation [...] Mass Index 22.31 08/30/2023 9:55 AM CDT documented in this encounter Medications at Time of Discharge albuterol HFA (PROVENTIL HFA,VENTOLIN HFA,PROAIR HFA) 90 mcg/actuation inhaler albuterol sulfate HFA 90 mcg/actuation aerosol inhaler INHALE 1 PUFF BY MOUTH EVERY 4 HOURS NEEDED FOR DIFFICULT BREATHING ascorbic acid (VITAMIN C) 500 mg tablet,chewable budesonide-formoterol (SYMBICORT) 80-4.5 mcg/actuation inhaler Inhale 2 puffs 2 (two) times a day Rinse mouth with water after use to reduce aftertaste and incidence of candidiasis. Do not swallow. cholecalciferol (VITAMIN D-3) 1,000 unit Take 1 tablet/capsule (1,000 Units total) by mouth daily cholestyramine (QUESTRAN) 4 gram powder Take 1 packet (4 g total) by mouth daily Dissolve in 8 oz of liquid and drink before a meal 30 packet 6 3 cyanocobalamin (Vitamin B-12) 1,000 mcg tabletIndications:Pre vention of Vitamin B12 Deficiency Take 100 mcg by mouth daily. estradioL (ESTRACE) 0.5 mg tablet estradiol 0.5 mg tablet TAKE 1 TABLET BY MOUTH EVERY OTHER DAY estrogens, conjugated, (PREMARIN) 0.625 mg tablet Take 1 tablet (0.625 mg total) by mouth daily Take daily for 21 days then do not take for 7 days. fenofibrate nanocrystallized (TRICOR,TRIGLIDE) 48 mg tabletIndications:Mix ed hyperlipidemia Take 2 tablets (96 mg total) by mouth daily. 30 tablet 11 7 fish oil-dha-epa 1,200-144-216 mg capsule Take by mouth. hydroCHLOROthiazide (HYDRODIURIL) 12.5 mg tablet Take 1 tablet (12.5 mg total) by mouth daily 1 ipratropium (ATROVENT) 21 mcg (0.03 %) nasal spray ipratropium bromide 21 mcg (0.03 %) nasal spray levothyroxine (SYNTHROID, LEVOTHROID) 88 mcg tablet Take 1 tablet (88 mcg total) by mouth daily lisinopriL (PRINIVIL,ZESTRIL) 10 mg tablet lisinopril 10 mg tablet TAKE 1 TABLET BY MOUTH DAILY metoprolol tartrate (LOPRESSOR) 25 mg immediate release tablet metoprolol tartrate 25 mg tablet TK 1 T PO BID montelukast (SINGULAIR) 10 mg tablet Take 1 tablet (10 mg total) by mouth nightly nortriptyline (PAMELOR) 10 mg capsule Take 1 capsule (10 mg total) by mouth nightly 30 capsule 6 3 omeprazole (PriLOSEC) 40 mg capsule 2 valACYclovir (VALTREX) 500 mg tablet Take 1 tablet (500 mg total) by mouth daily documented as of this encounter Discharge Disposition Disposition Code Departure Means Destination Comment s Discharge to home or self care documented in this encounter Progress Notes * Blue Almaraz MD - 08/30/2023 12:25 PM CDT The patient reports lower abdominal pain that started before a colonoscopy. However, notes worsening pain after the procedure. Abdominal exam: soft, not tender, no rebound tenderness. After monitoring the abdominal pain, she reports improvement. Advise S&S to go to ED. Will ask my staff to call and check in with her tomorrow. documented in this encounter H&P Notes * Blue Almaraz MD - 08/30/2023 11:12 AM CDT Pre Endoscopy History and Physical Madeline Garvin is a 77 y.o. female who is here for Procedure(s): COLONOSCOPY The indication(s) for the procedure(s): Change in bowel habit, rectal bleeding, CRC screening. Notes improvement with TCA and cholestyramine. Explain to her that if colonoscopy is normal, can conclude that the cause is from IBS. Educate her regarding goal and plan of management. Past Medical History: Diagnosis Date Allergic rhinitis Asthma DDD (degenerative disc disease), lumbar Dizziness Dry eye syndrome Headache HL (hearing loss) Hyperlipidemia Hypertension Sjogren's syndrome (HCC) Sleep apnea Thyroid disorder Past Surgical History: Procedure Laterality Date BLEPHAROPTOSIS REPAIR Bilateral 2014 CATARACT EXTRACTION EXTRACAPSULAR W/ INTRAOCULAR LENS IMPLANTATION Bilateral 2016 COLONOSCOPY HYSTERECTOMY INCONTINENCE SURGERY 2002, 2003, 2009 Social History Tobacco Use Smoking status: Never Smokeless tobacco: Never Substance and Sexual Activity Drug use: Never Sexual activity: None Alcohol Use: Not At Risk (08/30/2023) AUDIT-C Frequency of Alcohol Consumption: Never Average Number of Drinks: Patient does not drink Frequency of Binge Drinking: Never Family History Problem Relation Age of Onset Heart failure Mother Kidney disease Father Allergies Allergen Reactions Fluorescein-Benoxinate Swelling Eyes swelling Prochlorperazine Anaphylaxis and Other (See comments) Neck turning or spasm for muscle, Cadexomer Iodine Rash Latex Rash Mild rash if latex on skin for extended period Adhesive Tape-Silicones Iodine Unknown Potassium Iodide Unknown Prochlorperazine Edisylate Unknown Prior to Admission medications Medication Sig Start Date End Date Taking? Authorizing Provider albuterol HFA (PROVENTIL HFA,VENTOLIN HFA,PROAIR HFA) 90 mcg/actuation inhaler albuterol sulfate HFA 90 mcg/actuation aerosol inhaler INHALE 1 PUFF BY MOUTH EVERY 4 HOURS NEEDED FOR DIFFICULT BREATHING Yes Estephania Fontenot MD ascorbic acid (VITAMIN C) 500 mg tablet,chewable Yes Estephania Fontenot MD budesonide-formoterol (SYMBICORT) 80-4.5 mcg/actuation inhaler Inhale 2 puffs 2 (two) times a day Rinse mouth with water after use to reduce aftertaste and incidence of candidiasis. Do not swallow. Yes Estephania Fontenot MD cholestyramine (QUESTRAN) 4 gram powder Take 1 packet (4 g total) by mouth daily Dissolve in 8 oz of liquid and drink before a meal 07/29/23 07/28/24 Yes Blue Almaraz MD cyanocobalamin (Vitamin B-12) 1,000 mcg tablet Take 100 mcg by mouth daily. Yes Estephania Fontenot MD estradioL (ESTRACE) 0.5 mg tablet estradiol 0.5 mg tablet TAKE 1 TABLET BY MOUTH EVERY OTHER DAY Yes Estephania Fontenot MD estrogens, conjugated, (PREMARIN) 0.625 mg tablet Take 1 tablet (0.625 mg total) by mouth daily Take daily for 21 days then do not take for 7 days. Yes Estephania Fontenot MD fenofibrate nanocrystallized (TRICOR,TRIGLIDE) 48 mg tablet Take 2 tablets (96 mg total) by mouth daily. 10/18/17 Yes Ezekiel Guan MD fish oil-dha-epa 1,200-144-216 mg capsule Take by mouth. Yes Estephania Fontenot MD hydroCHLOROthiazide (HYDRODIURIL) 12.5 mg tablet Take 1 tablet (12.5 mg total) by mouth daily 04/30/21 Yes Estephania Fontenot MD levothyroxine (SYNTHROID, LEVOTHROID) 88 mcg tablet Take 1 tablet (88 mcg total) by mouth daily Estephania Connors MD lisinopriL (PRINIVIL,ZESTRIL) 10 mg tablet lisinopril 10 mg tablet TAKE 1 TABLET BY MOUTH DAILY Yes Estephania Fontenot MD metoprolol tartrate (LOPRESSOR) 25 mg immediate release tablet metoprolol tartrate 25 mg tablet TK 1 T PO BID Yes Estephania Fontenot MD nortriptyline (PAMELOR) 10 mg capsule Take 1 capsule (10 mg total) by mouth nightly 07/29/23 07/28/24Yes Blue Almaraz MD omeprazole (PriLOSEC) 40 mg capsule 06/29/22 Yes ProviderEstephania MD valACYclovir (VALTREX) 500 mg tablet Take 1 tablet (500 mg total) by mouth daily Yes ProviderEstephania MD cholecalciferol (VITAMIN D-3) 1,000 unit Take 1 tablet/capsule (1,000 Units total) by mouth daily ProviderEstephania MD ipratropium (ATROVENT) 21 mcg (0.03 %) nasal spray ipratropium bromide 21 mcg (0.03 %) nasal spray ProviderEstephania MD montelukast (SINGULAIR) 10 mg tablet Take 1 tablet (10 mg total) by mouth nightly ProviderEstephania MD Review of Systems A pertinent, focused review of systems was completed and negative, except as noted above. OBJECTIVE: Vitals: Vitals: 08/30/23 0955 08/30/23 1035 BP: 148/69 Pulse: 70 Resp: 17 Temp: 36.4 ??C (97.5 ??F) TempSrc: Temporal SpO2: 95% Weight: 59 kg (130 lb) Height: 162.6 cm (5' 4 ) Physical Exam: Airway: No significant abnormality. Cardiac: No significant abnormality. Pulmonary: No significant abnormality. Neurological: No significant abnormality. Gastrointestinal: No significant abnormality. ASA Score: per Anesthesia Sedation/Anesthesia Plan: per Anesthesia The risks and complications of the procedure have been explained to the patient. Informed consent was signed. Impression and plan: Will proceed with the planned procedure for the reasons stated above. documented in this encounter Procedure Notes * Blue Almaraz MD - 08/30/2023 11:13 AM CDTAssociated Order(s): COLONOSCOPY ENDOSCOPY LAB Patient Name: Madeline Garvin Procedure Date: 08/30/2023 11:13 AM Date of : 1945 Admit Type: Outpatient Age: 77 Gender: Female Attending MD: Blue Almaraz M.D. Room: [facility] ENDOSCOPY ROOM 05 Note Status: Finalized [...] Prior to the procedure, a History and Physical was performed, and patient medications, allergies and sensitivities were reviewed. The patient's tolerance of previous anesthesia was reviewed. The benefits, risks and alternatives of the procedure and sedation were discussed and informed consent was obtained. All questions were answered. Please refer to the signed informed consent document in the medical record. The scope was passed under direct vision. The [id number] was introduced through the anus and advanced to the terminal ileum. The colonoscopy was somewhat difficult due to multiple diverticula in the colon. The patient tolerated the procedure well. The quality of the bowel preparation was evaluated using the BBPS ([place] Bowel Preparation Scale) with scores of: Right Colon = 3, Transverse Colon = 3 and Left Colon = 3 (entire mucosa seen well with no residual staining, small fragments of stool or opaque liquid). The total BBPS score equals 9. The bowel preparation used was GoLYTELY via split dose instruction. Findings: Hemorrhoids were found on perianal exam. Non-bleeding external and internal hemorrhoids were found during retroflexion and during endoscopy. The hemorrhoids were small. Multiple small and large-mouthed diverticula were found in the sigmoid colon and ascending colon. The exam was [...] entire colon for evaluation of microscopic colitis. Recommendation: - Discharge patient to home. - Await pathology results. - Repeat colonoscopy is not recommended due to current age (66 years or older) for screening purposes. - The cause of rectal bleeding is likely from bleeding hemorrhoids. - If the biopsy is normal, can conclude that the cause of GI symptom is from irritable bowel syndrome and the treatment will be continuing current medications. - Return to my office as previously scheduled. - We performed biopsies during your procedure today. If you do not receive the result from my office in 7 business days, please contact my office at [phone]. Attending Participation: I personally performed the entire procedure. Electronically signed by Blue Almaraz MD Blue Almaraz M.D. 08/30/2023 11:49:26 AM Number of Addenda: 0 Note Initiated On: 08/30/2023 11:13 AM documented in this encounter Miscellaneous Notes * Perioperative Nursing Note - Renetta Choe RN - 08/30/2023 12:13 PM CDT Pt given some cranberry juice and repositioned back on to left side attempting to pass whatever airis in her abdomen. * Perioperative Nursing Note - Renetta Choe RN - 08/30/2023 12:[address] Mcarthur here to see pt and daughter and went over colonoscopy results with pt and daughter. Pt is complaining of some abdominal pain and told Dr it was a 6 . Abdomen is soft on palpation and pt encouraged to pass air in her stomach. * Pre-Procedure Instructions - Moon Schneider RN - 08/26/2023 2:35 PM CDT Please follow all instruction you were given regarding your bowel prep. Come to [facility] Hospital entrance. As you enter there will be an information desk, let them know you are here for a procedure and you will be directed to procedure registration area Dress comfortable. Leave valuable at home-higuera, credit cards, jewelry For your safety due to the anesthesia you will not be able to drive so please have a ride arranged to and from hospital with a responsible adult. Please no form of public transportation by yourself will be allowed Your local bulk driver must be at least 18 y/o If your local bulk driver chooses not to come in to the building or will be picking you up after your procedure-we will call your local bulk driver to confirm your ride home prior to the procedure start time Masking is optional. My number is [phone] documented in this encounter Plan of Treatment Not on file documented as of this encounter Procedures Procedure Name Priority Date/Time Associated Diagnosis Comments SURGICAL PATHOLOGY Routine 08/30/2023 11 :32 AM CDT Change in bowel habit Abdominal pain Colon cancer screening Rectal bleeding COLON BIOPSY 08/30/2023 11:14 AM CDT Change in bowel habit Abdominal pain Colon cancer screening Rectal bleeding COLONOSCOPY 08/30/2023 11:13 AM CDT documented in this encounter Results * Surgical pathology (08/30/2023 11:32 AM CDT) Tissue (Colon, Biopsy) 08/30/2023 11:32 AM CDT Narrative PATHOLOGY [facility] - 08/31/2023 10:09 AM CDT EPIC results best viewed via link to PDF [facility] [place] [address] Note to Patients: This report may contain a detailed description of human tissue sent by a health care provider to the laboratory for pathologic evaluation. The content of this report is essential for diagnosis and may provide important critical findings. This information may be unfamiliar to patients to review without a medical professional present. It is advised that the patient review this report in the presence of a health care provider who can answer questions and explain the details. SURGICAL PATHOLOGY REPORT FINAL Patient Name: ?? MADELINE GARVIN Gender: ??F : ??1945 (Age: 77) Address: ??[facility] [place] ??[address] Hospital #: ??[id number] Taken:08/30/2023 Received:08/30/2023 Reported: 08/31/2023 Patient Type: [facility] EP SAME Client ?[facility] Service: Gastro Location: Physician(s): ??Brooklyn Guardado M.D. Diagnosis: Colon, random, biopsies ? - Colonic mucosa with no histopathologic abnormality ? - No histologic features of microscopic colitis sjb/08/31/2023 10:09 By this signature, I attest that the above diagnosis is based upon my personal examination of the slides(and/or other material indicated in the diagnosis). Sky Sorenson M.D. Report Electronically Reviewed and Signed Out By ??Sky Sorenson M.D. 08/31/2023 10:09:53 Microscopic Description and Comment: Microscopic examination substantiates the above cited diagnosis. History: The patient is a 77-year-old woman presenting for change in bowel habits; abdominal pain; screening for colon cancer; rectal bleeding. ??Operative procedure: ??Colon biopsy. Specimen(s) Received: A: Random colon Gross Description: Received in formalin, labeled with the patient? ? s identifiers and random colon ??and consists of multiple quintero fragment(s) of soft tissue measuring 1.4 x 0.7 x 0.2 cm in aggregate. ?Labeled A1. Jar 0. ?? sxst/08/30/2023 17:01 PA(s): Ligia Yip By this signature, I attest that the above diagnosis is based upon my personal examination of the slides(and/or other material). Addenda/Procedures Microscopic slide review and interpretation for this case was performed at [facility], Department of Surgical Pathology, [address] [facility], [place] [id number], ??[facility], [place] ??[address] ?? CLIA # [id number] The performance characteristics of some immunohistochemical stains, fluorescence in-situ hybridization tests and immunophenotyping by flow cytometry cited in this report (if any) were determined by the Surgical Pathology and Flow Cytometry Departments at [facility] as part of an ongoing billing and quality technician program and in compliance with federally mandated regulations drawn from the Clinical Laboratory Improvement Act of 1988 (CLIA '88). ??Some of these tests rely on the use of analyte specific reagents and are subject to specific labeling requirements by the US Food and Drug Administration. ??Such diagnostic tests may only be performed in a facility that is certified by the Department of Health and Human Services as a high complexity laboratory under CLIA '88. ??The FDA has determined that such clearance or approval is not necessary. ??This test is used for clinical purposes. ??It should not be regarded as investigational or for research. ??Nevertheless, federal rules concerning the medical use of analyte specific reagents require that the following disclaimer be attached to the report: This test was developed and its performance characteristics determined by the Surgical Pathology and Flow Cytometry Departments of [facility]. ??It has not been cleared or approved by the U. S. Food and Drug Administration. IMAGES AND SCANNED DOCUMENTS, IF INCLUDED, ONLY VIEWABLE IN PDF VERSION OF REPORT Blue Almaraz MD LAB PATHOLOGY [facility] Final Result PATHOLOGY [facility] [phone] * COLONOSCOPY (08/30/2023 11:13 AM CDT) Anatomical Region Laterality Modality Other Narrative Procedure Note Blue Almaraz MD - 08/30/2023 11:13 AM CDT ENDOSCOPY LAB Patient Name: Madeline Garvin Procedure Date: 08/30/2023 11:13AM Date of : 1945 Admit Type: Outpatient Age: 77 Gender: Female Attending MD: Brooklyn Sheriff Room: [facility] ENDOSCOPY ROOM 05 Note Status: Finalized [...] The scope was passed under direct vision.The [id number] was introduced through the anusand advanced to the terminal ileum. The colonoscopy was somewhat difficult due to multiple diverticula inthe colon. The patient tolerated the procedure well.The quality of the bowel preparation was evaluatedusing the BBPS ([place] Bowel Preparation Scale) withscores of: Right Colon [...] office in, please contact my office at [phone]. Attending Participation: I personally performed the entire procedure. Electronically signed by Blue Almaraz MD Blue Almaraz M.D. 08/30/2023 11:49:26 AM Number of Addenda: 0 Note Initiated On: 08/30/2023 11:13 AM Blue Almaraz MD ENDOSCOPY PROCEDUR ES Final Result documented in this encounter Visit Diagnoses Diagnosis Change in bowel habit Abdominal pain Abdominal pain, unspecified site Colon cancer screening Special screening for malignant neoplasms, colon Rectal bleeding Hemorrhage of rectum and anus documented in this encounter Admitting Diagnoses Diagnosis Change in bowel habit Abdominal pain Abdominal pain, unspecified site Colon cancer screening Special screening for malignant neoplasms, colon Rectal bleeding Hemorrhage of rectum and anus documented in this encounter Administered Medications Inactive Administered Medications - up to 3 most recent administrations Medication Order MAR Action Action Date Dose Rate Site ondansetron (ZOFRAN) injection 4 mg 4 mg, intravenous, Administer over 2 Minutes, Every 6 hours PRN, nausea, vomiting, Starting on Wed08/30/23 at 0950, Pre-Procedure (GI) sodium chloride 0.9% flush 0.5-20 mL 0.5-20 mL, intra-catheter, As needed, line care, Starting on Wed08/30/23 at 0950, Pre-Procedure (GI), Flush volume based on line type and size. Flush before and after each use. , Indications: FlushingIndications:Flushin g sodium chloride 0.9% infusion 30 mL/hr, intravenous, Continuous, Starting on Wed08/30/23 at 1030 Rate/Dose Verify 08/30/2023 11:15 AM CDT 30 mL/hr New Bag 08/30/2023 10:47 AM CDT 30 mL/hr 30 mL/hr documented in this encounter Active and Recently Administered Medications Times are shown in CDT. Continuous Medication Order 08/28/2023 08/29/2023 08/30/2023 sodium chloride 0.9% infusion 30 mL/hr, intravenous, Continuous, Starting on Wed08/30/23 at 1030 1047 (New Bag - Prov ider: Yelitza Arenas RN)1115 (Rate/Dose Verify - Provider: Moon Hernandez CRNA)1144 (Anesthesia Volume Adjustment - Provider: Moon Hernandez CRNA)1225 (Stopped - Provider: Renetta Choe RN) PRN Medication Order 08/28/2023 08/29/2023 08/30/2023 ondansetron (ZOFRAN) injection 4 mg 4 mg, intravenous, Administer over 2 Minutes, Every 6 hours PRN, nausea, vomiting, Starting on Wed08/30/23 at 0950, Pre-Procedure (GI) ondansetron (ZOFRAN) injection 4 mg 4 mg, intravenous, Administer over 2 Minutes, Every 30 min PRN, nausea, vomiting, Starting on Wed08/30/23 at 1100, For 2 doses, Recovery (GI), Indications: Nausea and Vomiting ondansetron (ZOFRAN) injection 4 mg 4 mg, intravenous, Administer over 2 Minutes, Every 30 min PRN, nausea, vomiting, Starting on Wed08/30/23 at 1150, For 2 doses, Recovery (GI), Indications: Nausea and Vomiting sodium chloride 0.9% flush 0.5-20 mL 0.5-20 mL, intra-catheter, As needed, line care, Starting on Wed08/30/23 at 0950, Pre-Procedure (GI), Flush volume based on line type and size. Flush before and after each use. , Indications: Flushing documented in this encounter Orders Medications Ordered That Marco ht Not Have Been Administered Count Last Ordered Date First Ordered Date ondansetron (ZOFRAN) injection 4 mg 3 08/30 sodium chloride 0.9% flush 0.5-20 mL 1 08/15 Discharge Count Last Ordered Date First Orde red Date DISCHARGE PATIENT 1 08/30/2023 documented in this encounter Care Teams Fabric Worker Leader Relationship Specialty Start Date End Date Vira Mcfarland MD PCP - General Family Medicine 09/13/17 documented as of this encounter
--- OUTSIDE RECORDS SUMMARY | 2024-11-16 18:50 | XMS_ITS | Encounter Summary ---
Author Organization [facility] Address [address] [place] [address] Phone Care Team Providers Care Superintendent Of Schools Name Role Phone Vira Mcfarland MD Primary Care Provider Reason for Visit * Reason Onset Date Comments Follow-up 08/31/2023 Encounter Details Date Type Department Care Team (Late st Contact Info) Description 08/31/2023 Telephone [facility] Gastroenterology [address] [facility] Medicine 12th [place] [address] [place] [address] Blue Almaraz MD [address] [place] [address] Follow-up Social History Tobacco Use Types Packs/Day [...] on file 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 Spoke w daughter Janie who states her mom is doing good w no complaints but will have her call the office as well. Pt calling in leaving vm - attempted to call pt right back but went immediately to . Pt calling back - did received Dr Mcarthur's message - has a new phone and doesn't understand how to use it. Really wants to find out why the pain is still there, which is much decreased since starting nortriptyline and has had no diarrhea since starting the cholestyramine and nortriptyline. Wants to continue on with current medication. * Telephone Encounter - Blue Almaraz MD - 08/31/2023 12:44 PM CDT Called pt for follow up and left . Pt noted worsening abdominal pain after colonoscopy yesterday. Informed her that biopsy was normal. Told her that all test results were normal and can conclude that she has IBS. Recommend continuing current treatment. documented in this encounter Plan of Treatment Not on file documented as of this encounter Visit Diagnoses Not on filedocumented in this encounter Care Teams Superintendent Of Schools Relationship Specialty Start Date End Date Vira Mcfarland MD PCP - General Family Medicine 09/13/17 documented as of this encounter
--- OUTSIDE RECORDS SUMMARY | 2024-11-16 18:50 | XMS_ITS | Referral Summary ---
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 Continue risk factor modifications for atherosclerotic vascular disease Assessment & Plan (09/06/2017 1:23 PM CDT): The patient did have left carotid stenosis in 2009 between 50-70%. There are some carotid bruit and therefore will obtain carotid duplex to rule outs progression of carotid stenosis. Dyspnea on exertion 09/06/2017 Assessment & Plan (10/18/2017 9:03 AM METAL FURNITURE ASSEMBLER): Likely related to deconditioning and impaired relaxation on echocardiogram. Encourage exercise regimen Assessment & Plan (09/06/2017 1:22 PM CDT): Will obtain an echocardiogram to exclude cardiac etiology for dyspnea on exertion and rule out pulmonary hypertension. Mixed hyperlipidemia 09/06/2017 Assessment & Plan (10/18/2017 9:03 AM METAL FURNITURE ASSEMBLER): Increase the try care from 48 mg daily to 96 mg daily because the triglycerides are still elevated. Continue Lipitor 10 mg p.o. daily. Assessment & Plan (09/06/2017 1:23 PM CDT): Will start Lipitor 10 mg p.o. daily. 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 The colonoscopy was somewhat difficult due to multiple diverticula inthe colon. The patient tolerated the procedure well.The quality of the bowel preparation was evaluatedusing the BBPS ([place] Bowel Preparation Scale) withscores of: Right Colon [...] office in, please contact my office at [phone]. Attending Participation: I personally performed the entire procedure. Electronically signed by Blue Almaraz MD Blue Almaraz M.D. 08/30/2023 11:49:26 AM Number of Addenda: 0 Note Initiated On: 08/30/2023 11:13 AM us Blue Almaraz MD ENDOSCOPY PROCEDUR ES Final Result from Last 3 Months or Most Recently Relevant to Health Maintenance Insurance [facility] MEDICARE MEDICARE [facility] MEDICARE [facility] Advance Directives For more information, please contact: [phone] * Full Code (Latest Code Status on File) Date Activated Date Inactivated Comments 08/30/2023 9:50 AM 08/30/2023 4:39 PM Care Teams Finish Machine Tender Relationship Specialty Start Date End Date Vira Mcfarland MD PCP - General Family Medicine 09/13/17
--- OUTSIDE RECORDS SUMMARY | 2024-11-16 18:50 | XMS_ITS | Encounter Summary ---
Author Organization [facility] Healthcare Address [address] [place] [address] Care Team Providers Care Delicatessen Store Manager Name Role Phone Vira Mcfarland MD Primary Care Provider [phone] Reason for Visit * Auth/Cert (Routine) Specialty Diagnoses / Procedures Referred By Contac t Referred To Contact Diagnoses Change in bowel habit Abdominal pain Colon cancer screening Rectal bleeding Change in bowel habit [R19.4] Abdominal pain [R10.9] Colon cancer screening [Z12.11] Rectal bleeding [K62.5] Procedures [place] COLONOSCOPY FLX DX W/COLLJ SPEC WHEN PFRMD COLONOSCOPY Referral ID Status Reason Start Date Expiration Date Visits Re quested Visits Authorized [id number] 1 1 Encounter Details Date Type Department Care Team (Late st Contact Info) Description 08/30/2023 11:15 AM CDT - 08/30/2023 12:00 PM CDT Surgery [facility] Endoscopy [id number] [address] Blue Almaraz MD [address] [place] [address] COLON BIOPSY Surgery Details Date/Time Status Location OR Service Patient Class Case Class Case Type Trauma Case? 08/30/2023 11:[address] 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 Gender Identity Not on file Sexual Orientation Not on file documented as of this encounter Last Filed Vital Signs Vital Sign Reading Time Taken Comments Blood Pressure 144/67 08/30/2023 12:00 PM CDT Pulse 74 08/30/2023 12:00 PM CDT Temperature 36.4 ??C (97.5 ??F) 08/30/2023 9:55 AM CD T Respiratory Rate 14 08/30/2023 12:00 PM CDT Oxygen Saturation 100% 08/30/2023 12:00 PM CDT Inhaled Oxygen Concentration - - [...] IMPLANTATION Bilateral 2016 COLONOSCOPY HYSTERECTOMY INCONTINENCE SURGERY 2003, 2003, 2009 Social History Tobacco Use Smoking [...] tablet (88 mcg total) by mouth daily YesEstephania Fontenot MD lisinopriL (PRINIVIL,ZESTRIL) 10 mg tablet lisinopril [...] omeprazole (PriLOSEC) 40 mg capsule 06/29/22 Yes Estephania Fontenot MD valACYclovir (VALTREX) 500 mg tablet Take 1 tablet (500 mg total) by mouth daily Yes Estephania Fontenot MD cholecalciferol (VITAMIN D-3) 1,000 unit Take 1 tablet/capsule (1,000 Units total) by mouth daily Estephania Fontenot MD ipratropium (ATROVENT) 21 mcg (0.03 %) nasal spray ipratropium bromide 21 mcg (0.03 %) nasal spray Estephania Fontenot MD montelukast (SINGULAIR) 10 mg tablet Take 1 tablet (10 mg total) by mouth nightly Estephania Fontenot MD Review of Systems A pertinent, focused [...] Female Attending MD: Blue Almaraz M.D. Room: [facility] 05 Note Status: Finalized [...] scope was passed under direct vision. The [id number] was introduced through the anus and advanced to the terminal ileum. The colonoscopy was somewhat difficult due to multiple diverticula in the colon. The patient tolerated the procedure well. The quality of the bowel preparation was evaluated using the BBPS ([place] Bowel Preparation Scale) with scores of: Right [...] business days, please contact my office at [phone]. Attending Participation: I personally performed the entire [...] given regarding your bowel prep. Come to [facility] Hospital entrance. As you enter there will [...] transportation by yourself will be allowed Your medical driver must be at least 18 y/o If your medical driver chooses not to come in to the building or will be picking you up after your procedure-we will call your medical driver to confirm your ride home prior to the procedure start time Masking is optional. My number is [phone] documented in this encounter Plan of Treatment [...] results best viewed via link to PDF [facility] [place] [address] Note to Patients: This report may contain [...] Gender: ??F : ??1945 (Age: 77) Address: [address], [place] ??[address] Hospital #: ??[id number] Taken:08/30/2023 Received:08/30/2023 Reported: 08/31/2023 Patient Type: BWC EP SAME Client ?[facility] Service: Gastro Location: [...] interpretation for this case was performed at [facility], Department of Surgical Pathology, [address] [facility], [place] [id number], ??[facility], [place] ??[address] ?? CLIA # [id number] The performance characteristics of some immunohistochemical stains, fluorescence in-situ hybridization tests and immunophenotyping by flow cytometry cited in this report (if any) were determined by the Surgical Pathology and Flow Cytometry Departments at [facility] as part of an ongoing quality control lab tech program and in compliance with federally mandated [...] Surgical Pathology and Flow Cytometry Departments of [facility]. ??It has not been cleared or approved by the U. S. Food and Drug Administration. IMAGES AND SCANNED DOCUMENTS, IF INCLUDED, ONLY VIEWABLE IN PDF VERSION OF REPORT Blue Almaraz MD LAB PATHOLOGY [facility] Final Result PATHOLOGY [facility] [phone] * COLONOSCOPY (08/30/2023 11:13 AM CDT) Anatomical Region Laterality Modality Other Narrative Procedure Note Blue Almaraz MD - 08/30/2023 11:13 AM CDT ENDOSCOPY LAB Patient Name: Madeline Garvin Procedure Date: 08/30/2023 11:13AM Date of : 1945 Admit Type: Outpatient Age: 77 Gender: Female Attending MD: Brooklyn Sheriff Room: [facility] RO[facility] 05 Note Status: Finalized [...] The scope was passed under direct vision.The [id number] was introduced through the anusand advanced to the terminal ileum. The colonoscopy was somewhat difficult due to multiple diverticula inthe colon. The patient tolerated the procedure well.The quality of the bowel preparation was evaluatedusing the BBPS ([place] Bowel Preparation Scale) withscores of: Right Colon [...] office in, please contact my office at [phone]. Attending Participation: I personally performed the entire [...] Rectal bleeding Hemorrhage of rectum and anus Change in bowel habit Abdominal pain Abdominal [...] intra-catheter, As needed, line care, Starting on 08/30/23 at 0950, Pre-Procedure (GI), Flush volume based [...] 08/30/2023 documented in this encounter Care Teams Delicatessen Store Manager Relationship Specialty Start Date End Date Vira Mcfarland MD PCP - General Family Medicine 09/13/17 documented as of this encounter
--- OUTSIDE RECORDS SUMMARY | 2024-11-16 18:50 | XMS_ITS | Encounter Summary ---
Author Organization [facility] Address [address] [place] [address] Phone Care Team Providers Care Transportation Project Manager Name Role Phone Vira Mcfarland MD Primary Care Provider [phone] Reason for Visit * Reason Comments Hearing Loss Encounter Details Date Type Department Care Team (Late st Contact Info) Description 06/02/2021 3:00 PM CDT Office Visit [facility] Otolaryngology [address] [place] [address] Cherri Moore NP [address] [place] [address] Seasonal allergic rhinitis due to pollen (Primary Dx); Sensorineural hearing loss (SNHL) of both ears Social History Tobacco Use Types Packs/Day Years Used Date Smoking Tobacco: Never Smokeless Tobacco: Never Alcohol Use Standard Drinks/Week Comments No 0 (1 standard drink = 0.6 oz pur e alcohol) Comments Unknown Sex and Gender Information Value Date Recorded Sex Assigned at Not on file 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 Primary care provider is Vira Mcfarland MD . Chief Complaint: Madeline Mancera is a 75 y.o. female with complaints of: Chief Complaint [...] Gatherings with Friends and Family: ??? Attends [employer] Services: ??? Active Member of Clubs or Organizations: ??? Attends Club or Organization Meetings: ??? Marital Status: Intimate Partner Violence: ??? Fear of Current or Ex-Partner: ??? Emotionally Abused: ??? Physically Abused: ??? Sexually Abused: Medications/Allergies/Immunizations Current Outpatient Medications Medication Sig Dispense Refill ??? acidophilus-pectin, citrus 100 million cell-10 mg capsule Take by mouth. ??? ascorbic acid (ascorbic acid with lori hips) 500 mg tablet,chewable ??? aspirin 81 mg [...] Take 1 tablet by mouth daily. ??? cyanocobalamin (Vitamin B-12) 1,000 mcg tablet Take 100 mcg by mouth daily. ??? estrogens, conjugated, (PREMARIN) 0.625 mg tablet [...] Take 12.5 mg by mouth daily ??? levothyroxine (SYNTHROID, LEVOTHROID) 88 mcg tablet Take 88 mcg by mouth daily. ??? magnesium gluconate 200 mg tablet 200 mg. ??? metoprolol XL (TOPROL-XL) 50 mg 24 hr tablet Take 50 mg by mouth daily. ??? montelukast (SINGULAIR) 10 mg tablet Take 10 mg by mouth nightly. ??? naproxen (NAPROSYN,ALEVE) 220 mg tablet Take by mouth 2 (two) times a day with meals. ??? pantoprazole DR (PROTONIX) 40 mg EC tablet Take 40 mg by mouth daily. ??? polycarbophil (FIBERCON) 625 mg tablet Take 625 mg by mouth daily. ??? valACYclovir (VALTREX) 500 mg tablet Take 500 mg by mouth daily. ??? zinc 50 mg tablet Take by mouth. ??? cholecalciferol (VITAMIN D-3) 1,000 unit Take 1,000 Units by mouth daily. No current facility-administered medications for this visit. Allergies: Fluorescein-benoxinate, Prochlorperazine, Cadexomer iodine, Latex, Adhesive tape-silicones, Iodine, Potassium iodide, and Prochlorperazine edisylate, Immunizations: There is no immunization history on file for this patient. Review of Systems See HPI Vital Signs: [...] PLAN Problem List Items Addressed This Visit ENT Sensorineural hearing loss (SNHL) of both ears Other Visit Diagnoses Seasonal allergic rhinitis due to pollen - Primary Madeline is a 75-year-old female who presents [...] test that she had done here in 2019 it is very comparable and not much [...] office with any questions, concerns, or problems. Cindi Moore NP documented in this encounter Plan of Treatment Not on file documented as of this encounter Visit Diagnoses Diagnosis Seasonal allergic rhinitis due to pollen- Primary Sensorineural hearing loss (SNHL) of both ears documented in this encounter Discontinued Medications Medication Sig Discontinue Reason Start Date End Da te levothyroxine (Synthroid) 88 mcg tablet 0 Refill(s), Maintenance 10/01/2020 06/02/2021 valACYclovir (VALTREX) 500 mg tablet 0 Refill(s), Maintenance 10/01/2020 06/02/2021 montelukast (SINGULAIR) 10 mg tablet 0 Refill(s), Maintenance 10/01/2020 06/02/2021 fenofibrate nanocrystallized (TRICOR) 48 mg tablet 0 Refill(s), Maintenance 10/01/2020 06/02/2021 lisinopriL (PRINIVIL,ZESTRIL) 10 mg tablet Take 10 mg by mouth daily 05/26/2021 06/02/2021 metoprolol tartrate (LOPRESSOR) 25 mg immediate release tablet Take 25 mg by mouth daily 04/30/2021 06/02/2021 documented as of this encounter Historical Medications * This list may reflect changes made after this encounter. hydroCHLOROthiazide (HYDRODIURIL) 12.5 mg tablet Take 1 tablet (12.5 mg total) by mouth daily 1 montelukast (SINGULAIR) 10 mg tablet 0 Refill(s), Maintenance 0 06/02/20 21 valACYclovir (VALTREX) 500 mg tablet 0 Refill(s), Maintenance 0 06/02/20 21 levothyroxine (Synthroid) 88 mcg tablet 0 Refill(s), Maintenance 0 06/02/20 21 fenofibrate nanocrystallized (TRICOR) 48 mg tablet 0 Refill(s), Maintenance 0 06/02/20 21 metoprolol tartrate (LOPRESSOR) 25 mg immediate release tablet Take 25 mg by mouth daily 1 06/02/20 21 lisinopriL (PRINIVIL,ZESTRIL) 10 mg tablet Take 10 mg by mouth daily 1 06/02/20 21 added in this encounter Care Teams Transportation Project Manager Relationship Specialty Start Date End Date Vira Mcfarland MD PCP - General Family Medicine 09/13/17 documented as of this encounter
--- OUTSIDE RECORDS SUMMARY | 2024-11-16 18:50 | XMS_ITS | Encounter Summary ---
Author Organization [facility] Address [address] [place] [address] Phone Care Team Providers Care Sccm Administrator Name Role Phone Vira Mcfarland MD Primary Care Provider [phone] Reason for Visit * Reason Onset Date Comments Recommendations from OSH Records 08/09/2023 Encounter Details Date Type Department Care Team (Late st Contact Info) Description 08/09/2023 Telephone [facility] Gastroenterology [address] [facility] 12th [place] [address] [place] [address] Farrah Loyola CMA Recommendations from OSH Records Social History Tobacco Use Types Packs/Day Years Used Date Smoking Tobacco: Never Smokeless Tobacco: Never Alcohol Use Standard Drinks/Week Comments No 0 (1 standard drink = 0.6 oz pur e alcohol) Comments Unknown Sex and Gender Information Value Date Recorded Sex Assigned at Not on file 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 Left message for Ms. Mancera. Letter mailed. Amornsawadwattana, Surachai, MD Nir, Farrah Erlinda, FOREIGN LANGUAGE TEACHER Please inform pt that we received record from [facility] in 2011. It appeared that she was diagnosed with GERD and IBS. Continue treatment plan as previously discussed during clinic visit. documented in this encounter Plan of Treatment Not on file documented as of this encounter Visit Diagnoses Not on filedocumented in this encounter Care Teams Sccm Administrator Relationship Specialty Start Date End Date Vira Mcfarland MD PCP - General Family Medicine 09/13/17 documented as of this encounter
--- OUTSIDE RECORDS SUMMARY | 2024-11-16 18:50 | XMS_ITS | Encounter Summary ---
Author Organization [facility] Address [address] [place] [address] Phone Care Team Providers Care Marketing Production Manager Name Role Phone Vira Mcfarland MD Primary Care Provider Reason for Visit * Consultation (Routine) - Closed Specialty Diagnoses / Procedures Referred By Contvadim t Referred To Contact Gastroenterology Diagnoses Acute gastroenteritis Vira Mcfarland MD Phone: tel: fax: [facility] (All Locations) Referral ID Status Reason Start Date Expiration Date V isits Requested Visits Authorized [id number] Closed Specialty Services Required 06/08/2023 07/07/2024 1 1 Encounter Details Date Type Department Care Team (Late st Contact Info) Description 07/29/2023 1:00 PM CDT Office Visit [facility] Gastroenterology [address] [place] [address] [place] [address] Blue Almaraz MD [address] [place] [address] Abdominal pain (Primary Dx); Change in bowel habit; Colon cancer screening; Rectal bleeding Social History Tobacco Use Types Packs/Day Years Used Date Smoking Tobacco: Never Smokeless Tobacco: Never Tobacco Cessation:Counseling Given: Not Answered Alcohol Use Standard Drinks/Week Comments No 0 (1 standard drink = 0.6 oz pur e alcohol) Comments Unknown Sex and Gender Information Value Date Recorded Sex Assigned at Not on file Legal Sex 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 Gender Identity Not on file Sexual Orientation Not on file documented as of this encounter Last Filed Vital Signs Vital Sign Reading Time Taken Comments Blood Pressure 153/68 07/29/2023 12:51 PM CDT Pulse 55 07/29/2023 12:51 PM CDT Temperature 36.7 ??C (98.1 ??F) 07/29/2023 12:51 PM C DT Respiratory Rate - - Oxygen Saturation - - Inhaled Oxygen Concentration - - Weight 59.4 kg (131 lb) 07/29/2023 12:51 PM CDT Height 162.6 cm (5' 4 ) 07/29/2023 12:51 PM CDT Body Mass Index 22.49 07/29/2023 12:51 PM CDT documented in this encounter Patient Instructions * Patient Instructions* Blue Almaraz MD - 07/29/2023 1:00 PM CDT Continue current medications (cholestyramine + Nortriptyline). Colonoscopy on Aug 30, 2023. Get record from [facility]. documented in this encounter Ordered Prescriptions Prescription Sig Dispense Quantity Refills Last Filled Start Date End Date cholestyramine (QUESTRAN) 4 gram powder Take 1 packet (4 g total) by mouth daily Dissolve in 8 oz of liquid and drink before a meal 30 packet 6 07/29/2023 nortriptyline (PAMELOR) 10 mg capsule Take 1 capsule (10 mg total) by mouth nightly 30 capsule 6 07/29/2023 polyethylene glycol (GoLYTELY) 236-22.74-6.74 -5.86 gram solution Take 4,000 mL by mouth once for 1 dose 4000 mL 07/29/2023 3 documented in this encounter Progress Notes * Blue Almaraz MD - 07/29/2023 1:00 PM CDT [facility] DEPARTMENT OF MEDICINE DIVISION OF GASTROENTEROLOGY Clinic Address: [address], [address], [place] [address] Mailing Address: [address], [place] [id number], [place] [id number] Consult Note NAME: Madeline Mancera : 1945 DOS: 07/30/23 Reason for referral: The patient is seen for further opinion regarding change in bowel habit. Consult requested by: Vira Mcfarland MD Primary Care Physician: Vira Mcfarland MD Subjective Chief complaint: change in bowel habit. HPI Ms. Mancera is a 77 y.o. female with history of HTN, depression, HLPD, hypothyroidism who presents today for an initial evaluation of change in bowel habit. The patient reports history of change in bowel habit for several years. It occurs intermittently. She used to established care with GI at [facility]. Her symptoms include abdominal pain and diarrhea. Her symptom was in remission until the past few months. The patient has had abdominal pain for the past 2 months. Pain locates at lower abdomen and it is cramping. Pain scale is 5 out of 10. Pain occurs daily. Associated symptoms include diarrhea. She notes rectal bleeding a few times. The patient reportsloose stool 5-6 times a day. She was evaluated in her PCP clinic. Labs were normal. With the use ofNortriptyline 10 mg nightly and Cholestyramine 4 g once daily, she notes that symptom is under control. Dicyclomine was not effective. Per note, she has had chronic abdominal pain, loose stool and stool urgency. Prior workup were normal. She used to follow up with GI (Dr. Mratins). Food makes it worse. She notes diarrhea and bowel urgency. She declines colonoscopy. she was described Dicyclomine 20 mg. She has normal colonoscopy [id number]. Patient Active Problem List Diagnosis Chest pain Occlusion and stenosis of carotid artery Dyspnea on exertion Mixed hyperlipidemia Intrinsic urethral sphincter deficiency Sensorineural hearing loss (SNHL) of both ears Change in bowel habit Abdominal pain Colon cancer screening Rectal bleeding Past Medical History: Diagnosis Date Allergic rhinitis Asthma Dizziness Headache HL (hearing loss) Hyperlipidemia Hypertension Sleep apnea Past Surgical History: Procedure Laterality Date HYSTERECTOMY Current Outpatient Medications: albuterol HFA (PROVENTIL HFA,VENTOLIN HFA,PROAIR HFA) 90 mcg/actuation inhaler, albuterol sulfate HFA 90 mcg/actuation aerosol inhaler INHALE 1 PUFF BY MOUTH EVERY 4 HOURS NEEDED FOR DIFFICULT BREATHING, Disp: , Rfl: ascorbic acid (VITAMIN C) 500 mg tablet,chewable, , Disp: , Rfl: budesonide-formoterol (SYMBICORT) 80-4.5 mcg/actuation inhaler, Inhale 2 puffs 2 (two) times a day Rinse mouth with water after use to reduce aftertaste and incidence of candidiasis. Do not swallow.,Disp: , Rfl: cholecalciferol (VITAMIN D-3) 1,000 unit, Take 1 tablet/capsule (1,000 Units total) by mouth daily,Disp: , Rfl: cyanocobalamin (Vitamin B-12) 1,000 mcg tablet, Take 100 mcg by mouth daily., Disp: , Rfl: estradioL (ESTRACE) 0.5 mg tablet, estradiol 0.5 mg tablet TAKE 1 TABLET BY MOUTH EVERY OTHER DAY, Disp: , Rfl: estrogens, conjugated, (PREMARIN) 0.625 mg tablet, Take 1 tablet (0.625 mg total) by mouth daily Take daily for 21 days then do not take for 7 days., Disp: , Rfl: fenofibrate nanocrystallized (TRICOR,TRIGLIDE) 48 mg tablet, Take 2 tablets (96 mg total) by mouth daily., Disp: 30 tablet, Rfl: 11 fish oil-dha-epa 1,200-144-216 mg capsule, Take by mouth., Disp: , Rfl: hydroCHLOROthiazide (HYDRODIURIL) 12.5 mg tablet, Take 1 tablet (12.5 mg total) by mouth daily, Disp: , Rfl: ipratropium (ATROVENT) 21 mcg (0.03 %) nasal spray, ipratropium bromide 21 mcg (0.03 %) nasal spray, Disp: , Rfl: levothyroxine (SYNTHROID, LEVOTHROID) 88 mcg tablet, Take 1 tablet (88 mcg total) by mouth daily, Disp: , Rfl: lisinopriL (PRINIVIL,ZESTRIL) 10 mg tablet, lisinopril 10 mg tablet TAKE 1 TABLET BY MOUTH DAILY, Disp: , Rfl: metoprolol tartrate (LOPRESSOR) 25 mg immediate release tablet, metoprolol tartrate 25 mg tablet TK1 T PO BID, Disp: , Rfl: montelukast (SINGULAIR) 10 mg tablet, Take 1 tablet (10 mg total) by mouth nightly, Disp: , Rfl: omeprazole (PriLOSEC) 40 mg capsule, , Disp: , Rfl: valACYclovir (VALTREX) 500 mg tablet, Take 1 tablet (500 mg total) by mouth daily, Disp: , Rfl: cholestyramine (QUESTRAN) 4 gram powder, Take 1 packet (4 g total) by mouth daily Dissolve in 8 oz of liquid and drink before a meal, Disp: 30 packet, Rfl: 6 nortriptyline (PAMELOR) 10 mg capsule, Take 1 capsule (10 mg total) by mouth nightly, Disp: 30 capsule, Rfl: 6 Allergies Allergen Reactions Fluorescein-Benoxinate Swelling Eyes swelling Prochlorperazine Anaphylaxis and Other (See comments) Neck turning or spasm for muscle, Cadexomer Iodine Rash Latex Rash Mild rash if latex on skin for extended period Adhesive Tape-Silicones Iodine Unknown Potassium Iodide Unknown Prochlorperazine Edisylate Unknown Family History Problem Relation Age of Onset Heart failure Mother Kidney disease Father Social History Tobacco Use Smoking status: Never Smokeless tobacco: Never Substance and Sexual Activity Drug use: Never Sexual activity: None Alcohol Use: Not on file ROS As outlined in HPI. Other pertinent positives include lack of energy, lack of appetite, tiredness, weakness, weight loss, HTN, asthma, back pain, joint pain, thyroid disease. All other systems negative. Objective Vital Signs BP 153/68 Pulse 55 Temp 36.7 ??C (98.1 ??F) Ht 162.6 cm (5' 4 ) Wt 59.4 kg (131 lb) BMI 22.49 kg/m?? Physical Exam GENERAL: Well-appearing, in no acute distress. HEENT: Normocephalic atraumatic, Sclerae anicteric. NECK: Supple without lymphadenopathy. No JVD. LUNGS: Clear to auscultation bilaterally. CARDIOVASCULAR: Regular rate and rhythm with no murmur. ABDOMEN: soft, non-tender; bowel sounds normal; no masses, no organomegaly EXTREMITIES: No clubbing, cyanosis or edema, or evident deformity. SKIN: No rash or jaundice. NEUROLOGIC: Grossly nonfocal on simple observation with normal insight, memory, affect, and orientation, and no focal weakness evident. PSYCHIATRIC: Normal affect Results: Labs No results found for: WBC , HGB , HCT , MCV , LABPLAT No results found for: GLUCOSE , CALCIUM , SODIUM , POTASSIUM , CO2 , CHLORIDE , BUNSER , CREATININE No results found for: ALT , AST , GGT , ALKPHOS , BILITOT Imaging Not available. Endoscopy Not available. Assessment/Plan 1) Abdominal pain. 2) Change in bowel habit. Given longstanding history, normal labs and good response to TCA, suspect that the patient has IBS flares. Discuss with the patient regarding the probable diagnosis, goal and plan of management. Will obtainprior workup from [facility] to be reviewed here. In addition, recommend further evaluating with a colonoscopy. Explain the process and she is agreeable. Given good response to current treatment, recommend continuing it for 6-12 months. Then can consider discontinuing it. 3) Rectal bleeding. Given mild, intermittent course with normal lab, suspect anorectal bleeding. Recommend a colonoscopy as outlined above. 4) Colon cancer screening. Per note, her last colonoscopy was in 2007 and it was normal. Management is as outlined above. Diagnoses and all orders for this visit: Abdominal pain - Case Request GI: COLONOSCOPY Change in bowel habit - Ambulatory referral to Gastroenterology - Case Request GI: COLONOSCOPY Colon cancer screening - Case Request GI: COLONOSCOPY Rectal bleeding - Case Request GI: COLONOSCOPY Other orders - polyethylene glycol (GoLYTELY) 236-22.74-6.74 -5.86 gram solution; Take 4,000 mL by mouth once for 1 dose - nortriptyline (PAMELOR) 10 mg capsule; Take 1 capsule (10 mg total) by mouth nightly - cholestyramine (QUESTRAN) 4 gram powder; Take 1 packet (4 g total) by mouth daily Dissolve in 8 oz of liquid and drink before a meal Orders No orders of the defined types were placed in this encounter. PLANS - Obtain GI records from [facility]. - Continue Nortriptyline 10 mg hs and cholestyramine 4 g once daily. - Schedule a colonoscopy for change in bowel habit, rectal bleeding, colon cancer screening. Follow up in 6 months. My total encounter time on 07/29/2023 was 45 minutes which was spent in the activities documented inthe note. This includes time spent prior to the visit and after the visit in direct care of the patient. This time does not include time spent in any separately reportable services. Blue Almaraz MD Merchandise Coordinatorrefrigerator tester Division of Gastroenterology Department of Medicine [facility] [employer] [facility] [phone] [place] [address] medical assistant per diem documented in this encounter Plan of Treatment Not on file documented as of this encounter Visit Diagnoses Diagnosis Abdominal pain- Primary Abdominal pain, unspecified site Change in bowel habit Colon cancer screening Special screening for malignant neoplasms, colon Rectal bleeding Hemorrhage of rectum and anus documented in this encounter Discontinued Medications Medication Sig Discontinue Reason Start Date End Da te metoprolol XL (TOPROL-XL) 50 mg 24 hr tablet Take 50 mg by mouth daily. Therapy completed 07/29/2023 magnesium gluconate 200 mg tabletIndications:hypoma gnesemia 200 mg. Therapy completed 07/29/2023 benazepril (LOTENSIN) 40 mg tablet Take 40 mg by mouth daily. Therapy completed 07/29/2023 calcium carbonate (OS-FREDI) 650 mg calcium (1,625 mg) tablet Take 1 tablet by mouth daily. Therapy completed 07/29/2023 zinc 50 mg tablet Take by mouth. Therapy completed 07/29/2023 polycarbophil (FIBERCON) 625 mg tablet Take 625 mg by mouth daily. Therapy completed 07/29/2023 aspirin 81 mg tablet Take 81 mg by mouth daily. Therapy completed 07/29/2023 documented as of this encounter Orders Outpatient Referral Count Last Ordered Date Fir st Ordered Date AMB REFERRAL TO GASTROENTEROLOGY 1 07/29/20 23 Case Request Count Last Ordered Date First Orde red Date CASE REQUEST GI 1 07/29/2023 documented in this encounter Care Teams Marketing Production Manager Relationship Specialty Start Date End Date Vira Mcfarland MD PCP - General Family Medicine 09/13/17 documented as of this encounter
--- OUTSIDE RECORDS SUMMARY | 2024-11-16 18:50 | XMS_ITS | Encounter Summary ---
Author Organization [facility] Address [address] [place] [address] Phone Care Team Providers Care Oracle Security Consultant Name Role Phone Vira Mcfarland MD Primary Care Provider Encounter Details Date Type Department Care Team (Latest Contact Info) Description 07/02/2022 2:30 PM CDT Procedure visit [facility] [address] [place], [place] [address] [address] Shona Farfan Au.D. 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 - 07/02/2022 2:30 PM CDT Procedures Audiologic Evaluation Referring physician: Patient referred by LAUREN Esparza History: Patient reported a history of hearing loss and is a hearing aid user. She is interested ingetting new devices. Otoscopy: Ear canals clear of cerumen bilaterally. Tympanometry: Right:Type A tymp and is consistent with normal middle ear function. Left: Type A tymp and is consistent with normal middle ear function. Audiometry: Pure tone testing revealed mild sloping to moderately severe SNHL, bilaterally. Word Recognition Score (WRS) in the right ear is 84%, WRS in the left ear is 76%. Counseling: Patient was counseled on audiogram results. Recommendations: -Patient will follow-up with LAUREN Esparza for test results and recommendations. documented in this encounter Plan of Treatment Not on file documented as of this encounter Visit Diagnoses Diagnosis Sensorineural hearing loss (SNHL) of both ears- Primary documented in this encounter Care Teams Oracle Security Consultant Relationship Specialty Start Date End Date Vira Mcfarland MD PCP - General Family Medicine 09/13/17 documented as of this encounter
--- OUTSIDE RECORDS SUMMARY | 2024-11-16 18:51 | XMS_ITS | Encounter Summary ---
Author Organization [facility] Address [address] [place] [address] Care Team Providers Care Fiber Optic Assembler Name Role Phone Vira cMfarland MD Primary Care Provider [phone] Encounter Details Date Type Department Care Team (Late st Contact Info) Description 09/13/2017 Orders Only [facility] [address] [place] [phone] ProviderEstephania MD [address] [place] [address] Social History Tobacco Use Types Packs/Day Years Used Date Smoking Tobacco: Never Smokeless Tobacco: Never Alcohol Use Standard Drinks/Week Comments No 0 (1 standard drink = 0.6 oz pur e alcohol) Comments Unknown Sex and Gender Information Value Date Recorded Sex Assigned at Not on file 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 Gender Identity Not on file Sexual Orientation Not on file documented as of this encounter Plan of Treatment Not on file documented as of this encounter Procedures Procedure Name Priority Date/Time Associated Diagnosis Comments US CAROTIDS DUPLEX BILATERAL Schedule Routine, Read Routine (OP Routine) 09/13/2017 documented in this encounter Results * US Carotids Duplex Bilateral (09/13/2017) Anatomical Region Laterality Modality Vascular Bilateral Ultrasound us Historical Provider MD STERN US PROCEDURES Final R esult documented in this encounter Visit Diagnoses Not on filedocumented in this encounter Care Teams Fiber Optic Assembler Relationship Specialty Start Date End Date Vira Mcfarland MD PCP - General Family Medicine 09/13/17 documented as of this encounter
--- OUTSIDE RECORDS SUMMARY | 2024-11-16 18:51 | XMS_ITS | Encounter Summary ---
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
--- OUTSIDE RECORDS SUMMARY | 2024-11-16 18:51 | XMS_ITS | Encounter Summary ---
Author Organization [facility] Address [address] [place] [address] Care Team Providers Care English As A Second Language Instructor Name Role Phone Oma Macario MD Primary Care Provider [phone] Vira Mcfarland MD Primary Care Provider [phone] Encounter Details Date Type Department Care Team (Late st Contact Info) Description 09/11/2017 Orders Only [facility] [address] [place] [address] Provider, MD Estephania [address] [place] [address] Social History Tobacco Use Types Packs/Day Years Used Date Smoking Tobacco: Never Smokeless Tobacco: Never Alcohol Use Standard Drinks/Week Comments No 0 (1 standard drink = 0.6 oz pur e alcohol) Comments Unknown Sex and Gender Information Value Date Recorded Sex Assigned at Not on file Legal Sex Female 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 SURVEY DIRECTOR Gender Identity Not on file Sexual Orientation Not on file documented as of this encounter Plan of Treatment Not on file documented as of this encounter Procedures Procedure Name Priority Date/Time Associated Diagnosis Comments LIPID PANEL Routine 08/19/2017 6:18 AM CDT documented in this encounter Results * (ABNORMAL) Lipid panel (08/19/2017 6:18 AM CDT) SCRIBED Cholesterol, Total 193 125 - 200 EXTERNAL LAB SCRIBED HDL 48 40 - 100 EXTERNAL LAB SCRIBED LDL 131(A) 0 - 130 EXTERNAL LAB SCRIBED Triglycerides 253 150 - 300 EXTERNAL LAB Blood specimen (specimen) us Historical Provider LAB BLOOD ORDERABLES Edit ed Result - Final EXTERNAL LAB documented in this encounter Visit Diagnoses Not on filedocumented in this encounter Care Teams English As A Second Language Instructor Relationship Specialty Start Date End Date Oma Macario MD [address] [facility] [address] [place] [address] PCP - General 05/22/10 09/12/17 Vira Mcfarland MD [address] [place] [address] PCP - General Family Medicine 09/13/17 documented as of this encounter
--- OUTSIDE RECORDS SUMMARY | 2024-11-16 18:51 | XMS_ITS | Encounter Summary ---
Author Organization [facility] Address [address] [place] [address] Care Team Providers Care Csm Consultant Name Role Phone Oma Macario MD Primary Care Provider [phone] Reason for Referral * Cardiology (Routine) - Closed Specialty Diagnoses / Procedures Referred By Contac t Referred To Contact Diagnoses Dyspnea on exertion Procedures Transthoracic Echo Complete W Doppler/CF Reji Guan MD Phone: tel: fax: Referral ID Status Reason Start Date Expiration Date Visits Re quested Visits Authorized [id number] Closed 09/06/2017 03/05/2018 1 1 Reason for Visit * Reason Comments Hospital Follow Up CP Encounter Details Date Type Department Care Team (Latest Contact Info) Description 09/06/2017 8:00 AM CDT Office Visit [facility] [address] [facility] [address] [facility] [address] [place] [address] Reji Guan MD [address] [place] [id number] Chest pain, unspecified type (Primary Dx); Bruit of left carotid artery; Occlusion and stenosis of carotid artery; Dyspnea on exertion; Mixed hyperlipidemia Social History Tobacco Use Types Packs/Day Years Used Date Smoking Tobacco: Never Smokeless Tobacco: Never Alcohol Use Standard Drinks/Week Comments No 0 (1 standard drink = 0.6 oz pur e alcohol) Comments Unknown Sex and Gender Information Value Date Recorded Sex Assigned at Not on file 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 Gender Identity Not on file Sexual Orientation Not on file documented as of this encounter Last Filed Vital Signs Vital Sign Reading Time Taken Comments Blood Pressure 128/76 09/06/2017 8:21 AM CDT Pulse 56 09/06/2017 8:21 AM CDT Temperature - - Respiratory Rate - - Oxygen Saturation 97% 09/06/2017 8:21 AM CDT Inhaled Oxygen Concentration - - Weight 66.7 kg (147 lb) 09/06/2017 8:21 AM CDT Height 162.6 cm (5' 4 ) 09/06/2017 8:21 AM CDT Body Mass Index 25.23 09/06/2017 8:21 AM CDT documented in this encounter Ordered Prescriptions Prescription Sig Dispense Quantity Refills Last Filled Start Date End Date atorvastatin (LIPITOR) 10 mg tabletIndications:Mi xed hyperlipidemia Take 1 tablet (10 mg total) by mouth daily. 30 tablet 11 09/06/2017 8 documented in this encounter Progress Notes * Reji Guan MD - 09/06/2017 8:00 AM CDT [facility] DATE OF VISIT: 09/06/2017 CHIEF COMPLAINT Chief Complaint Patient presents with ??? Hospital Follow Up CP HPI Madeline Mancera is a 71 y.o. female with past medical history of hypertension, sleep apnea not on CPAP,hypothyroidism and borderline diabetes was admitted to [facility] on August 17, 2017 for chest pain. She underwent a nuclear Lexiscan stress test was negative for ischemia. Since discharge from the hospital she admits to dyspnea mainly on exertion. Denies lower limb edema, orthopnea, paroxysmal nocturnal dyspnea, dizziness, palpitations. She has no recurrence of chest pain. MEDICAL HISTORY Past Medical History: Diagnosis Date ??? Hyperlipidemia ??? Hypertension ??? Sleep apnea Past Surgical History: Procedure Laterality Date ??? HYSTERECTOMY Social History Substance Use Topics ??? Smoking status: Never Smoker ??? Smokeless tobacco: Never Used ??? Alcohol use No Family History Problem Relation Age of Onset ??? Heart failure Mother ??? Kidney disease Father MEDICATIONS HOME MEDICATIONS : ascorbic acid (ascorbic acid with lori hips) 500 mg tablet,chewable aspirin 81 mg tablet benazepril (LOTENSIN) 40 mg tablet budesonide-formoterol (SYMBICORT) 80-4.5 mcg/actuation inhaler calcium carbonate (OS-FREDI) 650 mg calcium (1,625 mg) tablet cholecalciferol (VITAMIN D-3) 1,000 unit cyanocobalamin (Vitamin B-12) 1,000 mcg tablet estrogens, conjugated, (PREMARIN) 0.625 mg tablet fenofibrate nanocrystallized (TRICOR,TRIGLIDE) 48 mg tablet fish oil-dha-epa 1,200-144-216 mg capsule levothyroxine (SYNTHROID, LEVOTHROID) 88 mcg tablet magnesium gluconate 200 mg tablet metoprolol XL (TOPROL-XL) 50 mg 24 hr tablet montelukast (SINGULAIR) 10 mg tablet naproxen (NAPROSYN,ALEVE) [address] (PROTONIX) 40 mg EC tablet polycarbophil (FIBERCON) 625 mg tablet valACYclovir (VALTREX) 500 mg tablet zinc 50 mg tablet atorvastatin (LIPITOR) 10 mg tablet ALLERGIES Allergies Allergen Reactions ??? Fluorescein-Benoxinate Swelling Eyes swelling ??? Prochlorperazine Anaphylaxis and Other (See comments) Neck turning or spasm for muscle ??? Cadexomer Iodine Rash ??? Latex Rash Mild rash if latex on skin for extended period ??? Adhesive Tape-Silicones ??? Iodine Unknown ??? Potassium Iodide Unknown ??? Prochlorperazine Edisylate Unknown REVIEW OF SYSTEMS Review of Systems Constitution: Negative for chills, fever and malaise/fatigue. HENT: Negative for congestion, nosebleeds and sore throat. Eyes: Negative for blurred vision, double vision, pain and photophobia. Cardiovascular: Positive for dyspnea on exertion. Negative for chest pain, claudication, leg swelling, near-syncope, orthopnea, palpitations, paroxysmal nocturnal dyspnea and syncope. Respiratory: Negative for cough, hemoptysis, shortness of breath, snoring, sputum production and wheezing. Endocrine: Negative for cold intolerance, heat intolerance and polyuria. Hematologic/Lymphatic: Negative for adenopathy and bleeding problem. Does not bruise/bleed easily. Skin: Negative for color change, itching and rash. Musculoskeletal: Negative for back pain, joint pain, joint swelling, muscle weakness and stiffness. Gastrointestinal: Negative for abdominal pain, diarrhea, nausea and vomiting. Genitourinary: Negative for dysuria, frequency and hematuria. Neurological: Negative for focal weakness, headaches, light-headedness, loss of balance, numbness, seizures and tremors. Psychiatric/Behavioral: Negative for depression and hallucinations. The patient is not nervous/anxious. Allergic/Immunologic: Negative for environmental allergies and hives. PHYSICAL EXAM Vitals: 09/06/17 0821 BP: 128/76 Pulse: 56 SpO2: 97% Body mass index is 25.23 kg/m??. Physical Exam Constitutional: She is oriented to person, place, and time. She appears well- developed and well-nourished. HENT: Head: Normocephalic and atraumatic. Mouth/Throat: Oropharynx is clear and moist. Eyes: Conjunctivae and EOM are normal. Left eye exhibits no discharge. No scleral icterus. Neck: Normal range of motion. Neck supple. No thyromegaly present. Cardiovascular: Normal rate, regular rhythm and normal heart sounds. Exam reveals no gallop and no friction rub. No murmur heard. Left carotid bruit Pulmonary/Chest: Effort normal and breath sounds normal. No respiratory distress. She has no wheezes. She has no rales. She exhibits no tenderness. Abdominal: Soft. She exhibits no distension and no mass. There is no tenderness. Musculoskeletal: She exhibits no edema, tenderness or deformity. Neurological: She is alert and oriented to person, place, and time. No cranial nerve deficit. She exhibits normal muscle tone. Skin: Skin is warm. No rash noted. No erythema. Psychiatric: She has a normal mood and affect. Judgment normal. LABS AND OTHER DIAGNOSTIC TESTS No results found for: WBC, HGB, HCT, MCV, PLT Chemistry No results found for: NA, K, CL, CO2, BUN, CREATININE, GLU No results found for: CALCIUM, ALKPHOS, AST, ALT, BILITOT Lipid panel August 18, 2017. LDL 131, HDL 48, triglyceride 253. Lexiscan nuclear stress test August 19, 2017. Ejection fraction 70% with no ischemia. ASSESSMENT Diagnoses and all orders for this visit: 1. Chest pain, unspecified type (Primary) Assessment & Plan: Chest pain resolved. Negative nuclear stress test for ischemia. Continue risk factor modifications for coronary artery disease Orders: - Carotids Duplex Bilateral; Future - ECG 12 lead 2. Bruit of left carotid artery - US Carotids Duplex Bilateral; Future 3. Occlusion and stenosis of carotid artery Assessment & Plan: The patient did have left carotid stenosis in 2009 between 50-70%. There are some carotid bruit andtherefore will obtain carotid duplex to rule outs progression of carotid stenosis. Orders: - US Carotids Duplex Bilateral; Future 4. Dyspnea on exertion Assessment & Plan: Will obtain an echocardiogram to exclude cardiac etiology for dyspnea on exertion and rule out pulmonary hypertension. Orders: - Transthoracic Echo Complete W Doppler/CF; Future 5. Mixed hyperlipidemia Assessment & Plan: Will start Lipitor 10 mg p.o. daily. Orders: - US Carotids Duplex Bilateral; Future - atorvastatin (LIPITOR) 10 mg tablet; Take 1 tablet (10 mg total) by mouth daily. PLAN/RECOMMENDATIONS Follow up in the office in in 1 month. Reji Guan MD documented in this encounter Miscellaneous Notes * Assessment & Plan Note - Reji Guan MD - 09/06/2017 1:29 PM CDTAssociated Problem(s): Chest pain Chest pain resolved. Negative nuclear stress test for ischemia. Continue risk factor modifications for coronary artery disease * Assessment & Plan Note - Reji Guan MD - 09/06/2017 1:23 PM CDTAssociated Problem(s): Mixed hyperlipidemia Will start Lipitor 10 mg p.o. daily. * Assessment & Plan Note - Reji Guan MD - 09/06/2017 1:22 PM CDTAssociated Problem(s): Occlusion and stenosis of carotid artery The patient did have left carotid stenosis in 2009 between 50-70%. There are some carotid bruit andtherefore will obtain carotid duplex to rule outs progression of carotid stenosis. * Assessment & Plan Note - Reji Guan MD - 09/06/2017 1:22 PM CDTAssociated Problem(s): Dyspnea on exertion Will obtain an echocardiogram to exclude cardiac etiology for dyspnea on exertion and rule out pulmonary hypertension. documented in this encounter Plan of Treatment Not on file documented as of this encounter Procedures Procedure Name Priority Date/Time Associated Diagnosis Comments ECG 12-LEAD Routine 09/06/2017 Chest pain, unspecified type LIPID PANEL Routine 08/18/2017 3:09 PM CDT documented in this encounter Results * TRANSTHORACIC ECHO (TTE) COMPLETE W DOPPLER/CF WO CONTRAST (09/13/2017 10:04 AM CDT) Anatomical Region Laterality Modality Ultrasound 09/13/2017 9:16 AM CDT Narrative 09/13/2017 12:25 PM CDT [facility] [facility] [address] [address] [address], [place] [address] P:[phone] P:[phone] Echocardiographic Report Patient Name: MADELINE MANCERA : 1945 Study Date: 09/13/2017 9:16:31 AM Gender: F Tech: SW ?Location: [place] ? Ref.Physician: LUL KAUFMAN ?Height(Cm): 163 ? BSA: 1.72 Weight(Kg): 66.68 Heart Rate: 49BP: 141/81 Quality: Good Order Physician: REJI GUAN Procedures: Echocardiographic Report: Transthoracic echocardiogram with complete 2D, M-Mode, and color Doppler examination. Indications: Dyspnea on Exertion. Measurements: 2D/M Mode ?Doppler ? Measurement ?Value ?Normal Range ? Measurement ?Value ?Normal Range ? EF Mod ? 71 ?SARITA ?2.34 ? [ 2.00 - 4.00 ] cm2 ? EF MM ?70 ? [ 55 - 70 ] percent ?AV Mean PG ? 4 ?[ 2 - 4 ] mmHg ? LVIDd MM ? 4.53 ? [ 3.90 - 5.30 ] cm ? AV Peak Antonio ?1.47 ? [ 1.00 - 1.70 ] m/s ? LVIDs MM ? 2.73 ? [ 2.30 - 3.90 ] cm ? AV Peak PG ? 9 ?[ 2 - 9 ] mmHg ? LVPWd MM ? 1.07 ? [ 0.60 - 1.00 ] cm ? AV VTI ? 0.29 ? cm ? IVSd MM ?1.07 ? [ 0.60 - 0.90 ] cm ? LVOT Diam ?2.07 ? [ 1.70 - 2.10 ] cm ? LA Dimension MM ?3.00 ? [ 2.70 - 3.80 ] cm ? LVOT Peak Antonio ?1.02 ? [ 0.70 - 1.10 ] m/s ? AoR Diam MM ?2.60 ? [ 2.60 - 3.70 ] cm ? LVOT VTI ? 0.27 ? [ 20.00 - 30.00 ] cm ? LA Volume Index ?23.00 ?[ 16.00 - 28.00 ] cc/m2 ?MV E Peak Antonio ?0.96 ? [ 0.60 - 1.30 ] m/s ? ACS MM ? 1.93 ? cm ? MV A Peak Antonio ?0.86 ? [ 1.00 - 1.20 ] m/s ? MV Decel Time ?253 ?[ 104 - 258 ] msec ? PV Peak Antonio ?0.99 ? [ 0.40 - 0.80 ] m/s ? TR Peak Antonio ?2.79 ? [ 1.00 - 2.80 ] m/s ? TR Peak PG ? 31 ? mmHg ? RVSP ? 36.00 ?[ 10.00 - 36.00 ] mmHg ? E' ? 0.10 ? E/E' ? 9 ? Findings: Interpretation Site: Exam was interpreted at [facility]. Left Ventricle: Normal left ventricular systolic function. No focal wall motion abnormalities. Normal left ventricular size. Mild concentric left ventricular hypertrophy. Impaired diastolic relaxation Grade I. Ejection fraction is visually estimated at 70-75 %. Ejection fraction is measured at 71 %. Right Ventricle: Normal right ventricular size. Normal right ventricular systolic function. Left Atrium: There is mild enlargement of left atrium. Right Atrium: The right atrium is normal in size. Atrial Septum: Normal atrial septum. Mitral Valve: Normal appearance of the mitral valve. Mild mitral valve regurgitation. There is no hemodynamically significant mitral stenosis by Doppler. Aortic Valve: No evidence of hemodynamically significant aortic stenosis by Doppler. Aortic cusps appear mildly sclerotic. Trileaflet aortic valve. Trace aortic valve regurgitation. Tricuspid Valve: Normal appearance of the tricuspid valve. Mild pulmonary hypertension based on right ventricular systolic pressure. Estimated peak RVSP is 36 mmHg. Mild tricuspid regurgitation. Pulmonic Valve: Normal appearance of the pulmonic valve. No pulmonic stenosis. Trivial regurgitation in the pulmonic valve. Pericardium: Normal pericardium with no significant pericardial effusion. Aorta: Normal aortic root. IVC: Normal size and normal respiratory collapse consistent with normal right atrial pressure (<5 mmHg). Pulmonary Artery: Normal pulmonary artery size. Conclusions: Normal left ventricular systolic function. No focal wall motion abnormalities. Normal left ventricular size. Mild concentric left ventricular hypertrophy. Impaired diastolic relaxation Grade I. Ejection fraction is visually estimated at 70-75 %. Ejection fraction is measured at 71 %. There is mild enlargement of left atrium. Mild mitral valve regurgitation. Aortic cusps appear mildly sclerotic. Trace aortic valve regurgitation. Mild pulmonary hypertension based on right ventricular systolic pressure. Estimated peak RVSP is 36 mmHg. Mild tricuspid regurgitation. Trivial regurgitation in the pulmonic valve. Normal sinus rhythm. Electronically Signed By: Jared Barr MD 2017-09-13 12:25:14 CDT CC: CC: Procedure Note Jared Barr MD - 09/13/2017 [facility] [address], [place] [address] [address], [place] [address] P:[phone] P:[phone] Echocardiographic Report Patient Name: Rosalind MANCERA ID: [id number] : [id number] Date: 09/13/2017 9:16:31 AM Gender: FAccession #: [id number] Tech: Location: [place] Ref.Physician: LUL KAUFMAN Height(Cm): 163 BSA: 1.72Weight(Kg): 66.68 Heart Rate: 49BP: 141/81 Quality: GoodOrder Physician: REJI GUAN Procedures: Echocardiographic Report: Transthoracic echocardiogram with complete 2D, M-Mode, and color Dopplerexamination. Indications: Dyspnea on Exertion. Measurements: 2D/M Mode Doppler Measurement Value Normal Range MeasurementValue Normal Range EF Mod 71 AVA2.34 [ 2.00 - 4.00 ] cm2 EF MM 70 [ 55 - 70 ] percent AV Mean PG 4[ 2 - 4 ] mmHg LVIDd MM 4.53 [ 3.90 - 5.30 ] cm AV Peak Vel1.47 [ 1.00 - 1.70 ] m/s LVIDs MM 2.73 [ 2.30 - 3.90 ] cm AV Peak PG 9[ 2 - 9 ] mmHg LVPWd MM 1.07 [ 0.60 - 1.00 ] cm AV VTI0.29 cm IVSd MM 1.07 [ 0.60 - 0.90 ] cm LVOT Diam2.07 [ 1.70 - 2.10 ] cm LA Dimension MM 3.00 [ 2.70 - 3.80 ] cm LVOT Peak Vel1.02 [ 0.70 - 1.10 ] m/s AoR Diam MM 2.60 [ 2.60 - 3.70 ] cm LVOT VTI0.27 [ 20.00 - 30.00 ] cm LA Volume Index 23.00 [ 16.00 - 28.00 ] cc/m2 MV E Peak Vel0.96 [ 0.60 - 1.30 ] m/s ACS MM 1.93 cm MV A Peak Vel0.86 [ 1.00 - 1.20 ] m/s MV Decel [id number] [ 104 - 258 ] msec PV Peak Vel0.99 [ 0.40 - 0.80 ] m/s TR Peak Vel2.79 [ 1.00 - 2.80 ] m/s TR Peak PG 31mmHg RVSP36.00 [ 10.00 - 36.00 ] mmHg E'0.10 E/E' 9 Findings: Interpretation Site: Exam was interpreted at [facility]. Left Ventricle: Normal left ventricular systolic function. No focal wall motionabnormalities. Normal left ventricular size. Mild concentric left ventricular hypertrophy.Impaired diastolic relaxation Grade I. Ejection fraction is visually estimated at 70-75 %.Ejection fraction is measured at 71 %. Right Ventricle: Normal right ventricular size. Normal right ventricular systolicfunction. Left Atrium: There is mild enlargement of left atrium. Right Atrium: The right atrium is normal in size. Atrial Septum: Normal atrial septum. Mitral Valve: Normal appearance of the mitral valve. Mild mitral valve regurgitation.There is no hemodynamically significant mitral stenosis by Doppler. Aortic Valve: No evidence of hemodynamically significant aortic stenosis by Doppler.Aortic cusps appear mildly sclerotic. Trileaflet aortic valve. Trace aortic valveregurgitation. Tricuspid Valve: Normal appearance of the tricuspid valve. Mild pulmonary hypertensionbased on right ventricular systolic pressure. Estimated peak RVSP is 36 mmHg. Mildtricuspid regurgitation. Pulmonic Valve: Normal appearance of the pulmonic valve. No pulmonic stenosis. Trivialregurgitation in the pulmonic valve. Pericardium: Normal pericardium with no significant pericardial effusion. Aorta: Normal aortic root. IVC: Normal size and normal respiratory collapse consistent with normal rightatrial pressure (<5 mmHg). Pulmonary Artery: Normal pulmonary artery size. Conclusions: Normal left ventricular systolic function. No focal wall motionabnormalities. Normal left ventricular size. Mild concentric left ventricular hypertrophy.Impaired diastolic relaxation Grade I. Ejection fraction is visually estimated at 70-75 %.Ejection fraction is measured at 71 %. There is mild enlargement of left atrium. Mild mitral valve regurgitation. Aortic cusps appear mildly sclerotic. Trace aortic valve regurgitation. Mild pulmonary hypertension based on right ventricular systolic pressure.Estimated peak RVSP is 36 mmHg. Mild tricuspid regurgitation. Trivial regurgitation in the pulmonic valve. Normal sinus rhythm. Electronically Signed By: Jared Barr MD 2017-09-13 12:25:14 CDT CC: CC: Result [facility] Reji Guan MD CV ECHO PROCEDURES F inal Result * ECG 12 lead (09/06/2017) Reji Guan MD ECG ORDERABLES Izabella l Result * Lipid panel (08/18/2017 3:09 PM CDT) SCRIBED Cholesterol, Total 193 na - na EXTERNAL LAB SCRIBED HDL 48 na - na EXTERNAL LAB SCRIBED LDL 131 na - na EXTERNAL LAB SCRIBED Triglycerides 253 na - na EXTERNAL LAB Blood specimen (specimen) Historical Provider LAB BLOOD ORDERABLES Izabella l Result EXTERNAL LAB documented in this encounter Visit Diagnoses Diagnosis Chest pain, unspecified type- Primary Bruit of left carotid artery Occlusion and stenosis of carotid artery Dyspnea on exertion Other dyspnea and respiratory abnormality Mixed hyperlipidemia Dyspnea on exertion Other dyspnea and respiratory abnormality documented in this encounter Historical Medications * This list may reflect changes made after this encounter. fish oil-dha-epa 1,200-144-216 mg capsule Take by mouth. ascorbic acid (VITAMIN C) 500 mg tablet,chewable cholecalciferol (VITAMIN D-3) 1,000 unit Take 1 tablet/capsule (1,000 Units total) by mouth daily cyanocobalamin (Vitamin B-12) 1,000 mcg tabletIndications:Pre vention of Vitamin B12 Deficiency Take 100 mcg by mouth daily. budesonide-formoterol (SYMBICORT) 80-4.5 mcg/actuation inhaler Inhale 2 puffs 2 (two) times a day Rinse mouth with water after use to reduce aftertaste and incidence of candidiasis. Do not swallow. estrogens, conjugated, (PREMARIN) 0.625 mg tablet Take 1 tablet (0.625 mg total) by mouth daily Take daily for 21 days then do not take for 7 days. montelukast (SINGULAIR) 10 mg tablet Take 1 tablet (10 mg total) by mouth nightly valACYclovir (VALTREX) 500 mg tablet Take 1 tablet (500 mg total) by mouth daily levothyroxine (SYNTHROID, LEVOTHROID) 88 mcg tablet Take 1 tablet (88 mcg total) by mouth daily naproxen (NAPROSYN,ALEVE) 220 mg tablet Take by mouth 2 (two) times a day with meals. 07/02/20 22 polycarbophil (FIBERCON) 625 mg tablet Take 625 mg by mouth daily. 07/29/20 23 zinc 50 mg tablet Take by mouth. 23 magnesium gluconate 200 mg tabletIndications:hyp omagnesemia 200 mg. 07/29/20 23 calcium carbonate (OS-FREDI) 650 mg calcium (1,625 mg) tablet Take 1 tablet by mouth daily. 07/29/20 23 aspirin 81 mg tablet Take 81 mg by mouth daily. 07/29/[address] (PROTONIX) 40 mg EC tablet Take 40 mg by mouth daily. 07/02/20 22 fenofibrate nanocrystallized (TRICOR,TRIGLIDE) 48 mg tablet Take 48 mg by mouth daily. 10/18/20 17 benazepril (LOTENSIN) 40 mg tablet Take 40 mg by mouth daily. 07/29/20 23 metoprolol XL (TOPROL-XL) 50 mg 24 hr tablet Take 50 mg by mouth daily. 07/29/20 23 added in this encounter Care Teams Csm Consultant Relationship Specialty Start Date End Date Oma Macario MD [address] [facility] [place] [address] PCP - General 05/22/10 09/12/17 documented as of this encounter
--- OUTSIDE RECORDS SUMMARY | 2024-11-16 18:51 | XMS_ITS | Encounter Summary ---
Author Organization 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
--- OUTSIDE RECORDS SUMMARY | 2024-11-16 18:51 | XMS_ITS | Encounter Summary ---
Author Organization [facility] Healthcare Address [address] [place] [address] Care Team Providers Care Administrative Law Judge Name Role Phone Oma Macario MD Primary Care Provider [phone] Encounter Details Date Type Department Care Team (Late st Contact Info) Description 12/13/2015 7:08 PM TANKMAN - 12/13/2015 11:59 PM TANKMAN Hospital Encounter [facility]INCONV Oma Macairo MD [address] [facility] [address] [place] [address] Primary central sleep apnea Social History Tobacco Use Types Packs/Day Years Used Date Smoking Tobacco: Never Assessed Comments Unknown Sex and Gender Information Value Date Recorded Sex Assigned at Not on file Legal Sex Female 10:02 AM TANKMAN Gender Identity Not on file Sexual Orientation Not on file documented as of this encounter Plan of Treatment Not on file documented as of this encounter Procedures Procedure Name Priority Date/Time Associated Diagnosis Comments PSG (SIMPLE) Routine 12/13/2015 12:00 AM TANKMAN documented in this encounter Results * PSG (SIMPLE) (12/13/2015 12:00 AM TANKMAN) 12/13/2015 Narrative HISTORICAL RESULTS - 12/19/2015 4:44 PM TANKMAN ?SLEEP DISORDER REPORT Patient: ??CALDERON MADELINE K. Account: ??[id number] ? Room No: : ?1945 ? Patient Type: ?ANC Attend.: ??Oma Macario M.D. ? Admit Date: ??12/13/2015 Dict.: ?Uli Vivas M.D., D.M. ?Disch. Date: 12/13/2015 ?COMPREHENSIVE POLYSOMNOGRAM DATE OF STUDY: ??December 13, 2015. ATTENDING PHYSICIAN: Oma Macario M.D. INDICATION FOR STUDY: ??The patient is a 70-year old with chief complaints of creepy crawly feelings, unrefreshing sleep and daytime sleepiness. ??The patient's [place] Sleepiness Scale Score is nine.The patient has an established diagnosis ofobstructive sleep apnea syndrome. This present study was ordered as a titration study. PAST MEDICAL HISTORY: Depression. VITAL STATISTICS: ??Age: 70 years. ??Height: 64 inches. Weight: 150 pounds. ??Body mass index: 25.9. PROCEDURE: ??The patient underwent an overnight polysomnography to include EEG, sleep stage recording, cardiorespiratory monitoring, positive pressure therapy as well as videotaping. DESCRIPTION OF POLYSOMNOGRAPHIC FINDNIGS: ??The patient's total time in bed was 469.2 minutes. ??Total sleep time was 392 minutes. ??Sleep efficiency was 83.5%. Latency from lights out to Stage N1 was 11 minutes, latency to Stage N2 was 14.5 minutes and latency to Stage N3 was 38 minutes. ??No Stage REM was achieved. Sleep stage recording revealed Stage Awake of 77.5 minutes. Stage non-REM comprised 392 minutes (100% of total sleep time). ??This included Stage N1 of 44 minutes (11.2% of total sleep time), Stage N2 of 285.5 minutes (72.8% of total sleep time) and Stage N3 of 62.5 minutes (15.9% of total sleep time). Positive pressure therapy was initiated and ASV VPAP therapy with expiratory pressure of six to ten cm and presure support of 3-15 was also attempted. ??ASVP VPAP therapy with expiratory positive pressures of 10 cm, positive pressure suuport 0f 5-15 cm was found to be the optimal setting. ??Total recording time was 45.5 minutes. Sleep efficiency was 95.6%. ??The residual apnea/hypopnea index was zero. ??Lowest oxygen saturation was 87.2%. ??A Resmid Air-Fit N10 nasal mask small size with a chin strap was used. Limb movement recording did not reveal periodic limb movements. ??Average heart rate during awake was 63.6 and during sleep was 62.6. ??The heart rhythm was sinus rhythm. IMPRESSION: ??The above polysomnography reveals evidence of: ??1. ASV VPAP is effective in treating the patient's complex ? sleep apnea syndrome. ??2. Expiratory positive air pressures of ten cm with pressure support of five ? to fifteen cm was found to be the optimal setting. ??3. A Resmed Air-Fit N10 small size nasal mask with a chin strap was used. Clinical correlation is recommended. 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 AXIS B: ??Polysomnography, 97874. ? Diplomate in Sleep Medicine ? ([place] Board of ?Psychiatry and Neurology) Electronically Authenticated and Edited by: Uli Vivas MD On 12/19/2015 04:16 PM TANKMAN Uli Vivas M.D., JuniorM. STANISLAW/cyrs Job #: ??[id number] DD: ??12/17/2015 14:30 TD: ??12/18/2015 10:33 us Historical Provider SLEEP CENTER ORDERABLES F inal Result HISTORICAL RESULTS documented in this encounter Visit Diagnoses Diagnosis Primary central sleep apnea documented in this encounter Care Teams Administrative Law Judge Relationship Specialty Start Date End Date Oma Macario MD [address] [facility] [address] [place] [address] PCP - General 05/22/10 09/12/17 documented as of this encounter
--- OUTSIDE RECORDS SUMMARY | 2024-11-16 18:51 | XMS_ITS | Encounter Summary ---
Author Organization [facility] Address [address] [address] Care Team Providers Care Heat Treat Puller Name Role Phone Vira Mcfarland MD Primary Care Provider [phone] Encounter Details Date Type Department Care Team (Late st Contact Info) Description 09/17/2017 Telephone [facility] [address] [address] [place] [address] [place] [address] Social History Tobacco Use Types Packs/Day Years Used Date Smoking Tobacco: Never Smokeless Tobacco: Never Alcohol Use Standard Drinks/Week Comments No 0 (1 standard drink = 0.6 oz pur e alcohol) Comments Unknown Sex and Gender Information Value Date Recorded Sex Assigned at Not on file Legal Sex Female 10:02 AM COMMUNITY HEALTH WORKER Gender Identity Not on file Sexual Orientation Not on file documented as of this encounter Miscellaneous Notes * Telephone Encounter - Ignacia Lopez RN - 09/17/2017 10:34 AM CDT I called the patient and reviewed with her the results of her recent carotid doppler and echo cardiogram results. Good results overall to both. She verbalizes understanding. documented in this encounter Plan of Treatment Not on file documented as of this encounter Visit Diagnoses Not on filedocumented in this encounter Care Teams Heat Treat Puller Relationship Specialty Start Date End Date Vira Mcfarland MD PCP - General Family Medicine 09/13/17 documented as of this encounter
--- OUTSIDE RECORDS SUMMARY | 2024-11-16 18:51 | XMS_ITS | Encounter Summary ---
Author Organization [facility] Address [address] [facility] [address] [place] [address] Care Team Providers Care Electrical Engineering Manager Name Role Phone Vria Mcfarland MD Primary Care Provider [phone] Reason for Visit * Reason Comments Follow-up 6 week follow up on CP Encounter Details Date Type Department Care Team (Latest Contact Info) Description 10/18/2017 8:00 AM KEYBOARD INSTRUMENT TUNER Office Visit [facility] [address] [facility] [address] [place] [id number] Ezekiel Guan MD [facility] [place] [address] Mixed hyperlipidemia (Primary Dx); Dyspnea on exertion; Occlusion and stenosis of carotid artery Social History Tobacco Use Types Packs/Day Years Used Date Smoking Tobacco: Never Smokeless Tobacco: Never Alcohol Use Standard Drinks/Week Comments No 0 (1 standard drink = 0.6 oz pur e alcohol) Comments Unknown Sex and Gender Information Value Date Recorded Sex Assigned at Not on file Legal Sex Female 10:02 AM KEYBOARD INSTRUMENT TUNER Gender Identity Not on file Sexual Orientation Not on file documented as of this encounter Last Filed Vital Signs Vital Sign Reading Time Taken Comments Blood Pressure 122/84 10/18/2017 8:15 AM KEYBOARD INSTRUMENT TUNER Pulse 57 10/18/2017 8:15 AM KEYBOARD INSTRUMENT TUNER Temperature - - Respiratory Rate - - Oxygen Saturation 96% 10/18/2017 8:15 AM KEYBOARD INSTRUMENT TUNER Inhaled Oxygen Concentration - - Weight 66.2 kg (146 lb) 10/18/2017 8:15 AM KEYBOARD INSTRUMENT TUNER Height 162.6 cm (5' 4 ) 10/18/2017 8:15 AM KEYBOARD INSTRUMENT TUNER Body Mass Index 25.06 10/18/2017 8:15 AM KEYBOARD INSTRUMENT TUNER documented in this encounter Ordered Prescriptions Prescription Sig Dispense Quantity Refills Last Filled Start Date End Date fenofibrate nanocrystallized (TRICOR,TRIGLIDE) 48 mg tabletIndications:Mixe d hyperlipidemia Take 2 tablets (96 mg total) by mouth daily. 30 tablet 11 10/18/2017 documented in this encounter Progress Notes * Ezekiel Guan MD - 10/18/2017 8:00 AM CST [facility] DATE OF VISIT: 10/18/2017 CHIEF COMPLAINT Chief Complaint Patient presents with ??? Follow-up 6 week follow up on [facility] Madeline Mancera is a 71 y.o. female with past medical history of hypertension, sleep apnea not on CPAP,hypothyroidism and borderline diabetes was admitted to [facility] on August 17, 2017 for chest pain. She underwent a nuclear Lexiscan stress test was negative for ischemia. Since discharge from the hospital she admits to dyspnea mainly on exertion. Denies lower limb edema, orthopnea, paroxysmal nocturnal dyspnea, dizziness, palpitations. She has no recurrence of chest pain. 10/18/2017: She returns for follow-up appointment. Continues to have dyspnea on exertion that is unchanged from before. Denies chest pain, lower limb edema, orthopnea, paroxysmal nocturnal dyspnea, dizziness, palpitations. MEDICAL HISTORY Past Medical History: Diagnosis Date ??? Hyperlipidemia ??? Hypertension ??? Sleep apnea Past Surgical History: Procedure Laterality Date ??? HYSTERECTOMY Social History Substance Use Topics ??? Smoking status: Never Smoker ??? Smokeless tobacco: Never Used ??? Alcohol use No Family History Problem Relation Age of Onset ??? Heart failure Mother ??? Kidney disease Father MEDICATIONS HOME MEDICATIONS : acidophilus-pectin, citrus 100 million cell-10 mg capsule ascorbic acid (ascorbic acid with lori hips) 500 mg tablet,chewable aspirin 81 mg tablet benazepril (LOTENSIN) 40 mg tablet budesonide-formoterol (SYMBICORT) 80-4.5 mcg/actuation inhaler calcium carbonate (OS-FREDI) 650 mg calcium (1,625 mg) tablet cholecalciferol (VITAMIN D-3) 1,000 unit cyanocobalamin (Vitamin B-12) 1,000 mcg tablet estrogens, conjugated, (PREMARIN) 0.625 mg tablet fenofibrate nanocrystallized (TRICOR,TRIGLIDE) 48 mg tablet fish oil-dha-epa 1,200-144-216 mg capsule magnesium gluconate 200 mg tablet metoprolol XL (TOPROL-XL) 50 mg 24 hr tablet montelukast (SINGULAIR) 10 mg tablet naproxen (NAPROSYN,ALEVE) [address] (PROTONIX) 40 mg EC tablet polycarbophil (FIBERCON) 625 mg tablet valACYclovir (VALTREX) 500 mg tablet zinc 50 mg tablet fenofibrate nanocrystallized (TRICOR,TRIGLIDE) 48 mg tablet atorvastatin (LIPITOR) 10 mg tablet levothyroxine (SYNTHROID, LEVOTHROID) 88 mcg tablet ALLERGIES Allergies Allergen Reactions ??? Fluorescein-Benoxinate [...] environmental allergies and hives. PHYSICAL EXAM Vitals: 10/18/17 0815 BP: 122/84 Pulse: 57 SpO2: 96% Body mass index is 25.06 kg/m??. Physical Exam Constitutional: She is oriented [...] 2017. LDL 131, HDL 48, triglyceride 253. Lipid panel October 18, 2017. HDL 54, LDL 112, triglyceride 293 Echocardiogram September 13, 2017. Ejection fraction 70%. Impaired relaxation. Mild LVH. Mild left atrial enlargement. Mild mitral regurgitation and trace aortic regurgitation. RVSP 36. Mild tricuspid regurgitation and trivial regurgitation pulmonic valve. Bilateral carotid Doppler ultrasound September 13, 2017. Less than 50% stenosis bilaterally. Lexiscan nuclear stress test August 19, 2017. Ejection fraction 70% with no ischemia. ASSESSMENT Diagnoses and all orders for this visit: Mixed hyperlipidemia (Primary) Assessment & Plan: Increase the try care from 48 mg daily to 96 mg daily because the triglycerides are still elevated.Continue Lipitor 10 mg p.o. daily. Orders: - fenofibrate nanocrystallized (TRICOR,TRIGLIDE) 48 mg tablet; Take 2 tablets (96 mg total) by mouth daily. Dyspnea on exertion Assessment & Plan: Likely related to deconditioning and impaired relaxation on echocardiogram. Encourage exercise regimen Occlusion and stenosis of carotid artery Assessment & Plan: Current carotid ultrasound shows no significant occlusion bilaterally.. Continue risk factor modifications for atherosclerotic vascular disease PLAN/RECOMMENDATIONS Follow up in the office in as needed Ezekiel Guan MD OARD INSTRUMENT TUNER documented in this encounter Miscellaneous Notes * Assessment & Plan Note - Ezekiel Guan MD - 10/18/2017 9:03 AM CSTAssociated Problem(s): Mixed hyperlipidemia Increase the try care from 48 mg daily to 96 mg daily because the triglycerides are still elevated.Continue Lipitor 10 mg p.o. daily. OARD INSTRUMENT TUNER * Assessment & Plan Note - Ezekiel Guan MD - 10/18/2017 9:03 AM CSTAssociated Problem(s): Occlusion and stenosis of carotid artery Current carotid ultrasound shows no significant occlusion bilaterally.. Continue risk factor modifications for atherosclerotic vascular disease OARD INSTRUMENT TUNER * Assessment & Plan Note - Ezekiel Guan MD - 10/18/2017 9:02 AM CSTAssociated Problem(s): Dyspnea on exertion Likely related to deconditioning and impaired relaxation on echocardiogram. Encourage exercise regimen OARD INSTRUMENT TUNER documented in this encounter Plan of Treatment Not on file documented as of this encounter Procedures Procedure Name Priority Date/Time Associated Diagnosis Comments POCT LIPID PANEL Routine 10/18/2017 9:32 AM KEYBOARD INSTRUMENT TUNER Mixed hyperlipidemia documented in this encounter Results * POCT lipid panel (10/18/2017 9:32 AM KEYBOARD INSTRUMENT TUNER) Cholesterol, POC 226 mg/dL HDL, POC 54 mg/dL Triglycerides, POC 293 mg/dL LDL Cholesterol POC 112 mg/dL Chol/HDL Ratio, POC 4.1 Non-HDL Cholesterol, POC 171 mg/dL Cholesterol Total, POC 226 mg/dL Blood specimen (specimen) 10/18/2017 9:32 AM KEYBOARD INSTRUMENT TUNER Ezekiel Guan MD POINT OF CARE TEST O RDERABLES Final Result documented in this encounter Visit Diagnoses Diagnosis Mixed hyperlipidemia- Primary Dyspnea on exertion Other dyspnea and respiratory abnormality Occlusion and stenosis of carotid artery documented in this encounter Discontinued Medications Medication Sig Discontinue Reason Start Date End Da te fenofibrate nanocrystallized (TRICOR,TRIGLIDE) 48 mg tablet Take 48 mg by mouth daily. Reorder 10/18/2017 documented as of this encounter Historical Medications * This list may reflect changes made after this encounter. acidophilus-pecti n, citrus 100 million cell-10 mg capsule Take by mouth. 07/02/2022 added in this encounter Care Teams Electrical Engineering Manager Relationship Specialty Start Date End Date Vira Mcfarland MD PCP - General Family Medicine 09/13/17 documented as of this encounter
--- OUTSIDE RECORDS SUMMARY | 2024-11-16 18:51 | XMS_ITS | Encounter Summary ---
Author Organization [facility] Care Team Providers Care Road Mechanic Name Role Phone Oma Macario MD Primary Care Provider [phone] Encounter Details Date Type Department Care Team (Latest Contact Info) Description 07/07/2010 8:19 AM CDT - 07/09/2010 12:00 PM CDT Hospital Encounter [facility] Juventino Benitez Female stress incontinence; Essential hypertension; Esophageal reflux; Hypothyroidism; Other depressive disorder; Other and unspecified hyperlipidemia; Asthma Social History Tobacco Use Types Packs/Day Years Used Date Smoking Tobacco: Never Assessed Comments Unknown Sex and Gender Information Value Date Recorded Sex Assigned at Not on file Legal Sex Female 10:02 AM DIRECTOR TRADING Gender Identity Not on file Sexual Orientation Not on file documented as of this encounter Plan of Treatment Not on file documented as of this encounter Visit Diagnoses Diagnosis Female stress incontinence Essential hypertension Unspecified essential hypertension Esophageal reflux Hypothyroidism Unspecified hypothyroidism Other depressive disorder Other and unspecified hyperlipidemia Asthma Unspecified asthma documented in this encounter Care Teams Road Mechanic Relationship Specialty Start Date End Date Oma Macario MD [address] [facility] [address] [place] [address] PCP - General 05/22/10 09/12/17 documented as of this encounter
--- OUTSIDE RECORDS SUMMARY | 2024-11-16 18:51 | XMS_ITS | Encounter Summary ---
Author Organization [facility] Address [address] [place] [address] Phone Care Team Providers Care Research Associate Quality Control Qc Name Role Phone Oma Macario MD Primary Care Provider [phone] Vira Mcfarland MD Primary Care Provider [phone] Encounter Details Date Type Department Care Team (Late st Contact Info) Description 02/22/2012 Orders Only [facility] Scanning, Provider Social History Tobacco Use Types Packs/Day Years Used Date Smoking Tobacco: Never Assessed Comments Unknown Sex and Gender Information Value Date Recorded Sex Assigned at Not on file Legal Sex Female 10:02 AM SPRING MAKER Gender Identity Not on file Sexual Orientation Not on file documented as of this encounter Plan of Treatment Not on file documented as of this encounter Procedures Procedure Name Priority Date/Time Associated Diagnosis Comments GI - RESULT 02/22/2012 12:00 AM CDT documented in this encounter Results * GI - RESULT (02/22/2012 12:00 AM CDT) Anatomical Region Laterality Modality Other us Provider Scanning Final Result documented in this encounter Visit Diagnoses Not on filedocumented in this encounter Care Teams Research Associate Quality Control Qc Relationship Specialty Start Date End Date Oma Macario MD [address] [facility] [address] [place] [address] PCP - General 05/22/10 09/12/17 Vira Mcfaralnd MD [address] [facility] [address] [place] [address] PCP - General Family Medicine 09/13/17 documented as of this encounter
--- OUTSIDE RECORDS SUMMARY | 2024-11-16 18:51 | XMS_ITS | Encounter Summary ---
Author Organization [facility] Address [address] [facility] [address] [place] [address] Care Team Providers Care Traffic Control Technician Name Role Phone Lul Kaufman MD Primary Care Provider [phone] Reason for Visit * Cardiology (Routine) - Closed Specialty Diagnoses / Procedures Referred By Contac t Referred To Contact Diagnoses Dyspnea on exertion Procedures Transthoracic Echo Complete W Doppler/CF Reji Guan MD Phone: tel: fax: Referral ID Status Reason Start Date Expiration Date Visits Re quested Visits Authorized [id number] Closed 09/06/2017 03/05/2018 1 1 Encounter Details Date Type Department Care Team (Latest Contact Info) Description 09/13/2017 9:15 AM CDT Ancillary Procedure [facility] Medical [facility] Cardiology [address] [place] [address] Dyspnea on exertion Social History Tobacco Use Types Packs/Day Years Used Date Smoking Tobacco: Never Smokeless Tobacco: Never Alcohol Use Standard Drinks/Week Comments No 0 (1 standard drink = 0.6 oz pur e alcohol) Comments Unknown Sex and Gender Information Value Date Recorded Sex Assigned at Not on file Legal Sex Female 10:02 AM POKER SUPERVISOR Gender Identity Not on file Sexual Orientation Not on file documented as of this encounter Plan of Treatment Not on file documented as of this encounter Procedures Procedure Name Priority Date/Time Associated Diagnosis Comments TRANSTHORACIC ECHO (TTE) COMPLETE W DOPPLER/CF WO CONTRAST Routine 09/13/2017 10:04 AM CDT Dyspnea on exertion documented in this encounter Results * TRANSTHORACIC ECHO (TTE) COMPLETE W DOPPLER/CF WO CONTRAST (09/13/2017 10:04 AM CDT) Anatomical Region Laterality Modality Ultrasound 09/13/2017 9:16 AM CDT Narrative 09/13/2017 12:25 PM CDT [facility] [address] [facility] [address], [place] [address] [address], [place] [address] P:[phone] P:[phone] Echocardiographic Report Patient Name: MADELINE MANCERA : 1945 Study Date: 09/13/2017 9:16:31 AM Gender: F Tech: SW ?Location: [place] ? Ref.Physician: LUL KAUFMAN ?Height(Cm): 163 ? BSA: 1.72 Weight(Kg): 66.68 Heart Rate: 49BP: 141/81 Quality: Good Order Physician: REJI GUAN Procedures: Echocardiographic Report: Transthoracic echocardiogram with complete 2D, M-Mode, and color Doppler examination. Indications: Dyspnea on Exertion. Measurements: 2D/M Mode ?Doppler ? Measurement ?Value ?Normal Range ? Measurement ?Value ?Normal Range ? EF Mod ? 71 ?ASRITA ?2.34 ? [ 2.00 - 4.00 ] [...] Site: Exam was interpreted at [facility]. Left Ventricle: Normal left ventricular systolic [...] - 09/13/2017 [facility] [address] [facility] [address] [address] [address] [facility] [address] [address] P:[phone] P:[phone] Echocardiographic Report Patient Name: Rosalind MANCERA ID: [id number] : [id number] Date: 09/13/2017 9:16:31 AM Gender: FAccession #: [id number] Tech: Location: [place] Ref.Physician: LUL KAUFMAN Height(Cm): 163 BSA: 1.72Weight(Kg): [...] 1.00 - 1.20 ] m/s MV Decel [id number] [ 104 - 258 ] msec PV Peak Vel0.99 [ 0.40 - 0.80 ] m/s TR Peak Vel2.79 [ 1.00 - 2.80 ] m/s TR Peak PG 31mmHg RVSP36.00 [ 10.00 - 36.00 ] mmHg E'0.10 E/E' 9 Findings: Interpretation Site: Exam was interpreted at [facility]. Left Ventricle: Normal left ventricular systolic [...] Barr MD 2017-09-13 12:25:14 CDT CC: CC: Reji Guan MD CV ECHO PROCEDURES F inal Result documented in this encounter Visit Diagnoses Diagnosis Dyspnea on exertion Other dyspnea and respiratory abnormality documented in this encounter Care Teams Traffic Control Technician Relationship Specialty Start Date End Date Lul Kaufman MD PCP - General Family Medicine 09/13/17 documented as of this encounter
== END 2024-11-09 08:33 | disposition home or self-care (01) ==
PROVIDERS: PCP Family Medicine; Visit Provider Nurse Practitioner Family
DX: R10.9 Unspecified abdominal pain (principal)
CPT/HCPCS: 74176

== ENCOUNTER 2024-12-19 10:12 | Outpatient (CLI) | payer MEDICARE, SELFPAY ==
--- NOTE | ~2024-12-19 | MM_ITS ---
EXAMINATION: MM screening ken BI w jax HISTORY: Screening TECHNIQUE: Craniocaudal and mediolateral oblique 3-D tomosynthesis images were obtained and synthetic 2-D images were generated. CAD analysis was submitted and interpreted. COMPARISON: Comparison to multiple prior studies sequentially, with oldest reviewed study dated 11/2017. BREAST PARENCHYMAL COMPOSITION: Not dense: There are scattered areas of fibroglandular density. FINDINGS: There is no evidence of suspicious mass, calcification, or architectural distortion to sugg est malignancy in either breast. There has been no suspicious interval change. IMPRESSION: 1. No mammographic evidence of malignancy. 2. Recommend routine screening mammography in one year. BI-RADS Category 1: Negative Reviewed, dictated and finalized at location B. [employer]
--- OUTSIDE RECORDS SUMMARY | 2024-12-19 10:41 | XMS_ITS | Clinical Summary ---
Author Organization [facility] Address [address] [place] [address] Phone Care Team Providers Care Senior Net Application Developer Name Role Phone Vira Mcfarland MD Primary Care Provider [phone] Active Problems Problem Noted Date Diagnosed Date [...] age to complete this topic Insurance MEDICARE [facility] Care Teams Senior Net Application Developer Relationship Specialty Start Date End Date Vira Mcfarland MD [address] [place] [address] PCP - General Family Medicine 03/09/17
--- OUTSIDE RECORDS SUMMARY | 2024-12-19 10:42 | XMS_ITS | Referral Summary ---
Author Organization [facility] [address] Address [address] [place] [address] Care Team Providers Care Loft Rigger Name Role Phone Vira Mcfarland MD Primary Care Provider [phone] Allergies Active Allergy Reactions Criticality Noted Date [...] 017 Assessment & Plan (10/18/2017 9:03 AM DISH MACHINE OPERATOR): Current carotid ultrasound shows no significant occlusion bilaterally.. Continue risk factor modifications for atherosclerotic vascular disease Assessment & Plan (09/06/2017 1:23 PM CDT): The patient did have left carotid stenosis in 2009 between 50-70%. There are some carotid bruit and therefore will obtain carotid duplex to rule outs progression of carotid stenosis. Dyspnea on exertion 09/06/2017 Assessment & Plan (10/18/2017 9:03 AM DISH MACHINE OPERATOR): Likely related to deconditioning and impaired relaxation on echocardiogram. Encourage exercise regimen Assessment & Plan (09/06/2017 1:22 PM CDT): Will obtain an echocardiogram to exclude cardiac etiology for dyspnea on exertion and rule out pulmonary hypertension. Mixed hyperlipidemia 09/06/2017 Assessment & Plan (10/18/2017 9:03 AM DISH MACHINE OPERATOR): Increase the try care from 48 [...] on file Legal Sex Female 10:02 AM DISH MACHINE OPERATOR Gender Identity Not on file [...] Gender: Female Attending MD: Brooklyn Sheriff Room: [facility] ENDOSCOPY ROOM 05 Note Status: Finalized [...] The scope was passed under direct vision.The [id number] was introduced through the anusand advanced to the terminal ileum. The colonoscopy was somewhat difficult due to multiple diverticula inthe colon. The patient tolerated the procedure well.The quality of the bowel preparation was evaluatedusing the BBPS ([place] Bowel Preparation Scale) withscores of: Right Colon [...] office in, please contact my office at [phone]. Attending Participation: I personally performed the entire procedure. Electronically signed by Blue Almaraz MD Blue Almaraz M.D. 08/30/2023 11:49:26 AM Number of Addenda: 0 Note Initiated On: 08/30/2023 11:13 AM us Blue Almaraz MD ENDOSCOPY PROCEDUR ES Final Result from Last 3 Months or Most Recently Relevant to Health Maintenance Insurance [facility] MEDICARE MEDICARE [facility] MEDICARE [facility] Advance Directives For more information, please contact: [phone] * Full Code (Latest Code Status on File) Date Activated Date Inactivated Comments 08/30/2023 9:50 AM 08/30/2023 4:39 PM Care Teams Loft Rigger Relationship Specialty Start Date End Date Vira Mcfarland MD PCP - General Family Medicine 09/13/17
--- OUTSIDE RECORDS SUMMARY | 2024-12-19 10:42 | XMS_ITS | Clinical Summary ---
Author Organization [facility] Address [address] [place] [address] Care Team Providers Care Assembler Production Line Name Role Phone Vira Mcfarland MD Primary Care Provider [phone] Source Comments [facility],non-owned Affiliates and Associated Physician Practices is amultiple site organization consisting of ambulatory clinics and hospital sitesin [place], [place], [place] and [place]. This disclosure is being madepursuant to the Care Everywhere program and may not contain all information available regarding this patient. Last updated 18.[employer] Medications * Be aware that medications may [...] 1944 DTAP/TDAP/TD VACCINES (1 - Tdap) 1963 PNEUMOCOCCAL VACCINE 50+ (1 of 1 - PCV) 1994 ZOSTER VACCINE (1 of 2) 1994 Respiratory Syncytial Virus (RSV) Vaccine Pt: or over 60 yrs (1 - 1-dose 75+ series) 2019 COVID-19 VACCINE ( - 2023-2 5 season) 2024 INFLUENZA VACCINE (#1) 2024 DEPRESSION SCREENING 11/15/2024 HEPATITIS B VACCINE Aged Out No longe r eligible based on patient's age to complete this topic HIB VACCINE Aged Out No longer eligi ble based on patient's age to complete this topic HPV VACCINE Aged Out No longer eligi ble based on patient's age to complete this topic MENINGOCOCCAL (Group B) VACCINE Aged Out No longer eligible based on patient's age to complete this topic MENINGOCOCCAL VACCINE Aged Out No doris tom eligible based on patient's age to complete this topic Care Teams Assembler Production Line Relationship Specialty Start Date End Date Vira Mcfarland MD [address] [place] [address] PCP - General 04/15/18
--- OUTSIDE RECORDS SUMMARY | 2024-12-19 10:42 | XMS_ITS | Referral Summary ---
Author Organization [facility] Address [address] [place] [address] Care Team Providers Care Software Implementation Project Manager Name Role Phone Vira Mcfarland MD Primary Care Provider [phone] Source Comments [facility],non-owned Affiliates and Associated Physician Practices is amultiple site organization consisting of ambulatory clinics and hospital sitesin [place], [place], [place] and [place]. This disclosure is being madepursuant to the Care Everywhere program and may not contain all information available regarding this patient. Last updated 18.[employer] Medications * Be aware that medications may [...] of Treatment Not on file Care Teams Software Implementation Project Manager Relationship Specialty Start Date End Date Vira Mcfarland MD [address] [place] [address] PCP - General 04/15/18
--- OUTSIDE RECORDS SUMMARY | 2024-12-19 10:42 | XMS_ITS | Encounter Summary ---
Author Organization [facility] Address [address] [place] [address] Phone Care Team Providers Care Concrete Batching Plant Operator Name Role Phone Oma Macario MD Primary Care Provider [phone] Vira Mcfarland MD Primary Care Provider [phone] Encounter Details Date Type Department Care Team (Late st Contact Info) Description 02/22/2012 Orders Only [facility] Scanning, Provider Social History Tobacco Use Types Packs/Day Years Used Date Smoking Tobacco: Never Assessed Comments Unknown Sex and Gender Information Value Date Recorded Sex Assigned at Not on file Legal Sex Female 10:02 AM FIRE PROTECTION SPECIALIST Gender Identity Not on file Sexual Orientation [...] on filedocumented in this encounter Care Teams Concrete Batching Plant Operator Relationship Specialty Start Date End Date Oma Macario MD [address] [facility] [address] [place] [address] PCP - General 05/22/10 09/12/17 Vira Mcfarland MD [address] [facility] [address] [place] [address] PCP - General Family Medicine 09/13/17 documented as of this encounter
--- OUTSIDE RECORDS SUMMARY | 2024-12-19 10:42 | XMS_ITS | Clinical Summary ---
Author Organization [facility] [facility] [address] Address [address] [place] [address] Care Team Providers Care Library Monitor Name Role Phone Vira Mcfarland MD Primary Care Provider [phone] Allergies Active Allergy Reactions Criticality Noted Date [...] 017 Assessment & Plan (10/18/2017 9:03 AM CORE DRILLER): Current carotid ultrasound shows no significant occlusion bilaterally.. Continue risk factor modifications for atherosclerotic vascular disease Assessment & Plan (09/06/2017 1:23 PM CDT): The patient did have left carotid stenosis in 2009 between 50-70%. There are some carotid bruit and therefore will obtain carotid duplex to rule outs progression of carotid stenosis. Dyspnea on exertion 09/06/2017 Assessment & Plan (10/18/2017 9:03 AM CORE DRILLER): Likely related to deconditioning and impaired relaxation on echocardiogram. Encourage exercise regimen Assessment & Plan (09/06/2017 1:22 PM CDT): Will obtain an echocardiogram to exclude cardiac etiology for dyspnea on exertion and rule out pulmonary hypertension. Mixed hyperlipidemia 09/06/2017 Assessment & Plan (10/18/2017 9:03 AM CORE DRILLER): Increase the try care from 48 mg [...] on file Legal Sex Female 10:02 AM CORE DRILLER Gender Identity Not on file Sexual Orientation [...] Date Last Done Comments Depression Screening 1945 Osteoporosis Screening-Bone Density Scan 1944 [...] Gender: Female Attending MD: Brooklyn Sheriff Room: [facility] ENDOSCOPY ROOM 05 Note Status: Finalized Procedure: [...] The scope was passed under direct vision.The [id number] was introduced through the anusand advanced to the terminal ileum. The colonoscopy was somewhat difficult due to multiple diverticula inthe colon. The patient tolerated the procedure well.The quality of the bowel preparation was evaluatedusing the BBPS ([place] Bowel Preparation Scale) withscores of: Right Colon [...] office in, please contact my office at [phone]. Attending Participation: I personally performed the entire procedure. Electronically signed by Blue Almaraz MD Blue Almaraz M.D. 08/30/2023 11:49:26 AM Number of Addenda: 0 Note Initiated On: 08/30/2023 11:13 AM Blue Almaraz MD ENDOSCOPY PROCEDUR ES Final Result from Last 3 Months or Most Recently Relevant to Health Maintenance Insurance [facility] MEDICARE MEDICARE [facility] MEDICARE [facility] FEDERAL Advance Directives For more information, please contact: [phone] * Full Code (Latest Code Status on File) Date Activated Date Inactivated Comments 08/30/2023 9:50 AM 08/30/2023 4:39 PM Care Teams Library Monitor Relationship Specialty Start Date End Date Vira Mcfarland MD PCP - General Family Medicine 09/13/17
--- OUTSIDE RECORDS SUMMARY | 2024-12-19 10:42 | XMS_ITS | Continuity of Care Document ---
Author Organization [facility] Address [address] [place] [phone] Phone Care Team Providers Care Artificial Cherry Maker Name Role Phone Geetha Macario OD Unavailable Unavailable Allergies, Adverse Reactions, Alerts Substance Reaction Status Criticality FLUORESCEIN SODIUM Active No Inform ation BENOXINATE HCL Active No Informatio n IODINE Active No Information PROCHLORPERAZINE MALEATE Active No Information PROCHLORPERAZINE EDISYLATE Active N o Information prochlorperazine Active No Informat ion Medications Medication Instructions Dosage Effective Dates (start - stop) Status Comments Serum Tears OPHTHALMIC DROPS instill 1 drop by ophthalmic route every day - Active Xiidra 5 % eye drops in a dropperette instill 1 drop by ophthalmic route 2 times every day into both eyes approximately 12 hours apart 1.00 drop - Active Miebo 100 % eye drops instill 1 drop by ophthalmic route 2 times every day into affected eye(s) 1 drop - Active iVizia (PF) 0.5 % eye drops instill 1 drop by ophthalmic route 2 times every day 1 drop - Active VITAMIN B-12 (unknown strength) chew 1 gummy daily Not Available - Active lisinopril 10 mg ORAL TABLET take one tablet daily - Active Synthroid 88 mcg tablet take 1 tablet by oral route every day 88 MCG - Active fenofibrate 40 mg tablet take 2 tablet b y oral route every day 80 MG - [...] MISCELL take one tablet daily - Active Procedures Procedure Date Close Tear Duct Opening No Charge Optomap Fundus Photos 025 Close Tear Duct Opening Office/outpatient Visit, Est Office/outpatient Visit, Est Office/outpatient Visit, Est InflammaDry Office/outpatient Visit, Est [...] Yes / No Effective Date File Name Other Directive No N/A N/A WARNING:The information contained in this section is historical and is provided for information only and does not constitute a legal document or any assurance that the information is still accurate. Please verify the information with the warren of the legal document before using it for clinical purposes. Encounters Encounter Description Practice Location Reason(s) For Visit Diagnoses Date Provider Providers Copied on Encounter Office/outpa tient Visit, [facility], [address] [place] [address] [address], [place], [place], [id number], tel:[phone] [facility] [place] 8 month Dry eye follow up (chief complaint) Keratoconjunctiv itis sicca, not specified as Sjogren's, bilateralMeibomi an gland dysfnct right eye, upper and lower eyelidsMeibomian gland dysfnct left eye, upper and lower eyelids 5 Amirah OD Geetha. [address] [place] [address] [address], [address], [place], [place], [address], . tel:[phone] Referring Provider: Geetha Wilkerson, [address] [place] [address] [address], [place], [address] . tel:[phone] Office/outpa tient Visit, [facility] [place], [address] [place] [address] [address], [place], [place], [address], tel:[phone] [place] 5 month Dry eye followup (chief complaint) Keratoconjunctiv itis sicca, not specified as Sjogren's, bilateral 4 Amirah OD Geetha. [address] [place] [address] [address], [address], [place], [place], [address], . tel:[phone] Referring Provider: Geetha Wilkerson, [address] [place] [address] [address], [place], [address] . tel:[phone] Office/outpa tient Visit, [facility] [place], [address] [place] [address] [address], [place], [place], [address], tel:[phone] [place] dry eye follow up (chief complaint) Keratoconjunctiv itis sicca, not specified as Sjogren's, bilateralMeibomi an gland dysfnct right eye, upper and lower eyelidsMeibomian gland dysfnct left eye, upper and lower eyelids Dec-2 0 3 Amirah OD Geetha. [address] [place] [address] [address], [address], [place], [place], [address], . tel:[phone] Referring Provider: Geetha Wilkerson, [address] [place] [address] [address], [place], [address] . tel:[phone] Office/outpa tient Visit, [facility], [address] [place] [address] [address], [place], [place], [address], [place] tel:[phone] [facility] [place] 1 month followup (chief complaint) Keratoconjunctiv itis sicca, not specified as Sjogren's, bilateralMeibomi an gland dysfnct right eye, upper and lower eyelidsMeibomian gland dysfnct left eye, upper and lower eyelids 3 Amirah OD Geetha. [address] [place] [address] [address], [address], [place], [place], [address], [place]. tel:[phone] Referring Provider: Geetha Wilkerson, [address] [place], [place] [address]i [address], [place], [address] . tel:[phone] Office/outpa tient Visit, [facility], [address] [place] [address] [address], [place], [place], [address], [place] tel:[phone] [place] Dry eye follow up (chief complaint) Meibomian gland dysfnct right eye, upper and lower eyelidsMeibomian gland dysfnct left eye, upper and lower eyelidsKeratocon junctivitis sicca, not specified as Sjogren's, bilateral Apr- 3 Amirah OD Geetha. [address] [place] [address] i, [address], [place], [place], [address], . tel:[phone] Referring Provider: Geetha Wilkerson, [address] [place], [place] [address] [address], [place], [address] . tel:[phone] Office/outpa tient Visit, [facility], [address] [place] [address] [address], [place], [place], [address], tel:[phone] [facility] [place] Complete exam and dry eye follow up (chief complaint) Keratoconjunctiv itis sicca, not specified as Sjogren's, bilateralMeibomi an gland dysfnct left eye, upper and lower eyelidsMeibomian gland dysfnct right eye, upper and lower eyelids Dec-0 8-202 2 Amirah OD Geetha. [address] [place] [address] [address], [address], [place], [place], [address], . tel:[phone] Referring Provider: Geetha Macario OD K, [address] [place], [place] [address] [address], [place], [address] . tel:[phone] Office/outpa tient Visit, [facility], [address] [place] [address] [address], [place], [place], [address], tel:[phone] [place] Dry eye followup (chief complaint) Keratoconjunctiv itis sicca, not specified as Sjogren's, bilateralMeibomi an gland dysfnct right eye, upper and lower eyelidsMeibomian gland dysfnct left eye, upper and lower eyelids Mar-1 0-202 2 Amirah OD Geetha. [address] [place], [place] [address]i, [address], [place], [place], [address], . tel:[phone] Referring Provider: Geetha Macario OD K, [address] [place] [address] [address], [place], [address] . tel:[phone] Office/outpa tient Visit, [facility], [address] [place] [address] [address], [place], [place], [address], tel:[phone] [facility] [place] Dry eye follow up (chief complaint) Meibomian gland dysfnct right eye, upper and lower eyelidsMeibomian gland dysfnct left eye, upper and lower eyelidsKeratocon junctivitis sicca, not specified as Sjogren's, bilateral 1 Amirah OD Geetha. [address] [place] [address] [address], [address], [place], [place], [address], . tel:[phone] Referring Provider: Geetha Wilkerson, [address] [place] [address] [address], [place], [address] . tel:[phone] Office/outpa tient Visit, [facility] [employer] [facility], [address] [place] [address] [address], [place], [place], [address], tel:[phone] [facility] [place] Dry eye Evaluation (chief complaint) Meibomian gland dysfnct right eye, upper and lower eyelidsMeibomian gland dysfnct left eye, upper and lower eyelidsKeratocon junctivitis sicca, not specified as Sjogren's, bilateral Jul-0 1 Amirah OD Geetha. [address] [place] [address] [address], [address], [place], [place], [address], . tel:[phone] Referring Provider: Geetha Wilkerson, [address] [place] [address] [address], [place], [address] . tel:[phone] [facility] [employer], [address] [place] [address] [address], [place], [place], [address], tel:[phone] SEC Jean-Pierre Oswald Complete Exam (chief complaint) Keratoconjunctiv itis sicca, not specified as Sjogren's, bilateralPseudop hakia of both eyesMeibomian gland dysfnct left eye, upper and lower eyelidsMeibomian gland dysfnct right eye, upper and lower eyelidsAstigmati sm of both eyes with presbyopiaPresby opiaVitreous degeneration, bilateral 1 Amirah OD Geetha. [address], [place], [place], [address], . tel:[phone] Referring Provider: [place], [address], [place], [address] . tel:[phone] [facility], [address], [place], [place], [address], tel:[phone] SEC Jean-Pierre Oswald No Information 1 Heriberto Sarkar. [address], [address], [place], [place], [address], [place]. tel:[phone] [facility], [address] [place] [address] [address], [place], [place], [address], tel:[phone] [facility] No Information 2-200 7 [place] OD Avelino. [address], [place], [place], [facility], [place]. tel:[phone] Office/outpa tient Visit, [facility], [address] [place] [address] [address], [place], [place], [address], tel:[phone] [facility] No Information 0 1-200 7 [place] OD Avelino. [address], [place], [place], [facility], . tel:[phone] Family History Family Member Type Diagnosis Age At Onset Problem Family history of degenerati ve disorder of macula Problem Family history of Diabetes jaxson blancas Payers Payer name Insurance type Covered constitution party ID Authorshantia jn(s) [place] [id number] [place] [id number] Social History Type Description Quantity Date Captured Comments Alcohol Use Details No Caffeine Use Details Tobacco Use Status Current non-smoker Smoking Status Never smoker Non-Smoking Tobacco Use Details : No Details Available : No Details Available Sex Female Chief Complaint And Reason For Visit From encounter dated '11/23/2024 11:30'. 8 month Dry eye follow up (chief complaint). Description: The 79 year old patient presents for evaluation of 8 month Dry eye follow up in the right eye and left eye. Pt reports eyes have been doing pretty well. Pt states OU feel irritated if watching TV or on computer a lot. Pt states eyes burn more when driving and sensitive to sunlight. Pt states Miebo really helps also uses Ivizia, AST PRN andwarm compresses QD-BID.TBUT OD 9.75, OS 20.84SPEED Reason For Referral Reason For Referral No Information Plan Of Treatment Date Type Action Status Appointment Calderon Madeline BOOKED Patient Education Dry Eyes: Care Instruct ions completed History Of Present Illness Encounter Date Complaint History Of Prese nt Illness 8 month Dry eye follow up The 79 year old patient presents for evaluation of 8 month Dry eye follow up in the right eye and left eye. Pt reports eyes have been doing pretty well. Pt states OU feel irritated if watching TV or on computer a lot. Pt states eyes burn more when driving and sensitive to sunlight. Pt states Miebo really helps also uses Ivizia, AST PRN and warm compresses QD-BID.TBUT OD 9.75, OS 20.84SPEED 5 month Dry eye followup The 78 [...] takes vitamin B12, Vitamin D3, Vitamin C, [place] 3.TBUT -4.53/-7.14SPEED Dry eye followup The 76 [...] uses Refresh Sahil 3 TID-QID OU, taking [place] 3 1 PO BID. Pt wears mask [...] in both eyes. Pt is currently using [place] 3 Refresh 2-3 x day OU. Pt [...] Keratoconjunctivitis sicca, not specified as Sjogren's, bilateral assessment Meibomian gland dysfnct right ey e, upper and lower eyelids assessment Meibomian gland dysfnct left eye , upper and lower eyelids Patient Care Teams Name Effective Dates (start - stop) Status Members No Information
--- OUTSIDE RECORDS SUMMARY | 2024-12-19 10:42 | XMS_ITS | Patient Health Summary ---
Author Organization [facility] [employer] Address [address] [place] [address] Care Team Providers Care Waterworks Supervisor Name Role Phone Vira Mcfarland MD Primary Care Provider [phone] Note from [facility],non-owned Affiliates and Associated Physician Practices is amultiple site organization consisting of ambulatory clinics and hospital sitesin [place], [place], [place] and [place]. This disclosure is being madepursuant to the Care Everywhere program and may not contain all information available regarding this patient. Last updated 18.[facility] [employer] Medications * Be aware that medications may [...] 24.89 08/13/2016 7:41 AM CDT Care Teams Waterworks Supervisor Relationship Specialty Start Date End Date Vira Mcfarland MD [address] [place] [address] PCP - General 04/15/18
== END 2024-12-19 10:13 | disposition home or self-care (01) ==
PROVIDERS: PCP Family Medicine; Visit Provider Family Medicine
DX: Z12.31 Encounter for screening mammogram for malignant neoplasm of breast (principal)
CPT/HCPCS: 77063; 77067

== ENCOUNTER 2025-01-25 11:38 | Outpatient (CLI) | payer MEDICARE, OTHER, SELFPAY ==
--- NOTE | ~2025-01-25 | XR_ITS ---
CHEST RADIOGRAPH, PA AND LATERAL CLINICAL HISTORY: J22 - Unspecified acute lower respiratory infection, COUGH . COMPARISON: 04/07/2021 TECHNIQUE: PA and lateral views of the chest. FINDINGS The cardiomediastinal silhouette is unremarkable. The lungs are clear. Visualized osseous structures and soft tissues are unremarkable. IMPRESSION: No focal infiltrate or effusion. Reviewed, dictated and finalized at location A.
--- OUTSIDE RECORDS SUMMARY | 2025-01-25 13:34 | XMS_ITS | Continuity of Care Document ---
Author Organization [facility] Address [address] [place] [address] Phone Care Team Providers Care Tube Bender Hand Name Role Phone Unavailable Unavailable Unavailable Advance Directives Directive Yes / No Effective Date File Name No Information Encounters Encounter Description Practice Location Reason(s) For Visit Diagnoses Date Provider Providers Copied on Encounter [facility] [employer], [address], [place], [place], [id number], [place] tel:[phone] [employer] [facility] LUMBAR DISC DISPLACEMENTOTH ADV EFF MED/BIO SUB Oct-0 2-200 4 No Information Family History Family Member Type Diagnosis Age At Onset No Information Payers Payer name Insurance type Covered republican ID Authoriza tion(s) No Information Social History [...]
--- OUTSIDE RECORDS SUMMARY | 2025-01-25 13:34 | XMS_ITS | Clinical Summary ---
Author Organization [facility] Address [address] [place] [address] Phone Care Team Providers Care Family Intervention Specialist Name Role Phone Vira Mcfarland MD Primary Care Provider [phone] Active Problems Problem Noted Date Diagnosed Date [...] age to complete this topic Insurance MEDICARE [facility] Care Teams Family Intervention Specialist Relationship Specialty Start Date End Date Vira Mcfarland MD [address] [place] [address] PCP - General Family Medicine 03/09/17
--- OUTSIDE RECORDS SUMMARY | 2025-01-25 13:34 | XMS_ITS | Clinical Summary ---
Author Organization [facility] [address] Address [address] [place] [address] Care Team Providers Care Film Coater Name Role Phone Vira Mcfarland MD Primary Care Provider [phone] Allergies Active Allergy Reactions Criticality Noted Date [...] 017 Assessment & Plan (10/18/2017 9:03 AM DIE CASTER): Current carotid ultrasound shows no significant occlusion bilaterally.. Continue risk factor modifications for atherosclerotic vascular disease Assessment & Plan (09/06/2017 1:23 PM CDT): The patient did have left carotid stenosis in 2009 between 50-70%. There are some carotid bruit and therefore will obtain carotid duplex to rule outs progression of carotid stenosis. Dyspnea on exertion 09/06/2017 Assessment & Plan (10/18/2017 9:03 AM DIE CASTER): Likely related to deconditioning and impaired relaxation on echocardiogram. Encourage exercise regimen Assessment & Plan (09/06/2017 1:22 PM CDT): Will obtain an echocardiogram to exclude cardiac etiology for dyspnea on exertion and rule out pulmonary hypertension. Mixed hyperlipidemia 09/06/2017 Assessment & Plan (10/18/2017 9:03 AM DIE CASTER): Increase the try care from 48 mg daily to 96 mg daily because the triglycerides are still elevated. Continue Lipitor 10 mg p.o. daily. Assessment & Plan (09/06/2017 1:23 PM CDT): Will start Lipitor 10 mg p.o. daily. Intrinsic urethral sphincter deficiency 02/26/20 11 Immunizations Immunization Administration Dates Next Due Pfizer SARS-CoV-2 Monovalent Vaccination (12+ Yrs) PURPLE 02/05/2021,01/12/2021 Surgical History Surgery Date Site/Laterality Comments HYSTERECTOMY CATARACT EXTRACTION EXTRACAPSULAR W/ INTRAOCULAR LENS IMPLANTATION 11/15/2015 - 11/14/2016 Bilateral BLEPHAROPTOSIS REPAIR 11/15/2013 - 11/14/2014 Bilateral INCONTINENCE SURGERY 2003, 2004, 2010 COLONOSCOPY Medical History Medical History Date Comments Hypertension Hyperlipidemia Sleep apnea Allergic rhinitis Asthma HL (hearing loss) Dizziness Headache Dry eye syndrome Sjogren's syndrome DDD (degenerative disc disease), lumbar Thyroid disorder [...] on file Legal Sex Female 10:02 AM DIE CASTER Gender Identity Not on file Sexual Orientation Not on file Obstetrics History Last Filed Vital Signs Vital Sign Reading Time Taken Comments Blood Pressure 128/70 08/30/2023 12:24 PM CDT Pulse 74 08/30/2023 12:24 PM CDT Temperature 36.4 C (97.5 F) 08/30/2023 9:55 AM CDT Respiratory Rate 31 08/30/2023 12:24 PM CDT [...] Pneumococcal vaccine 65+ (2 of 2 - PPSV23) 08/06/2016 08/06/2015 Covid-19 Vaccine (3 - season) [...] Gender: Female Attending MD: Brooklyn Sheriff Room: [facility] 05 Note Status: Finalized [...] The scope was passed under direct vision.The [id number] was introduced through the anusand advanced to the terminal ileum. The colonoscopy was somewhat difficult due to multiple diverticula inthe colon. The patient tolerated the procedure well.The quality of the bowel preparation was evaluatedusing the BBPS ([place] Bowel Preparation Scale) withscores of: Right Colon [...] office in, please contact my office at [phone]. Attending Participation: I personally performed the entire procedure. Electronically signed by Blue Almaraz MD Blue Almaraz M.D. 08/30/2023 11:49:26 AM Number of Addenda: 0 Note Initiated On: 08/30/2023 11:13 AM Blue Almaraz MD ENDOSCOPY PROCEDUR ES Final Result from Last 3 Months or Most Recently Relevant to Health Maintenance Insurance [facility] MEDICARE MEDICARE [facility] MEDICARE [facility] FEDERAL Advance Directives For more information, please contact: [phone] * Full Code (Latest Code Status on File) Date Activated Date Inactivated Comments 08/30/2023 9:50 AM 08/30/2023 4:39 PM Care Teams Film Coater Relationship Specialty Start Date End Date Vira Mcfarland MD PCP - General Family Medicine 09/13/17
--- OUTSIDE RECORDS SUMMARY | 2025-01-25 13:34 | XMS_ITS | Patient Health Summary ---
Author Organization [facility] Address [address] [place] [address] Care Team Providers Care Dragline Operator Helper Name Role Phone Vira Mcfarland MD Primary Care Provider [phone] Note from [facility],non-owned Affiliates and Associated Physician Practices is amultiple site organization consisting of ambulatory clinics and hospital sitesin [place], [place], [place] and [place]. This disclosure is being madepursuant to the Care Everywhere program and may not contain all information available regarding this patient. Last updated 18.[facility] Medications * Be aware that medications may [...] 57 08/13/2016 10:25 AM CDT Temperature 36.7 C (98 F) 08/13/2016 10:25 AM CDT Respiratory Rate 16 08/13/2016 7:41 AM CDT Oxygen Saturation 98% 08/13/2016 10:25 AM CDT Inhaled Oxygen Concentration - - Weight 65.8 kg (145 lb) 08/13/2016 7:41 AM CDT Height 162.6 cm (5' 4 ) 08/13/2016 7:41 AM CDT Body Mass Index 24.89 08/13/2016 7:41 AM CDT Care Teams Dragline Operator Helper Relationship Specialty Start Date End Date Vira Mcfarland MD [address] [place] [address] PCP - General 04/15/18
--- OUTSIDE RECORDS SUMMARY | 2025-01-25 13:34 | XMS_ITS | Continuity of Care Document ---
Author Organization [facility] Address [address] [place] [address] Phone Care Team Providers Care Fire Extinguisher Mechanic Name Role Phone Geetha Macario OD Unavailable [...] Providers Copied on Encounter Office/outpa tient Visit, [facility], [address] [place] [address] [address], [place], [place], [address], tel:[phone] DEI [place] 8 month Dry eye follow up (chief complaint) Keratoconjunctiv itis sicca, not specified as Sjogren's, bilateralMeibomi an gland dysfnct right eye, upper and lower eyelidsMeibomian gland dysfnct left eye, upper and lower eyelids 5 Amirah OD Geetha. [address] [place] [address] [address], [address], [place], [place], [address], . tel:[phone] Referring Provider: Geetha Wilkerson, [address] [place] [address] [address], [place], [address] . tel:[phone] Office/outpa tient Visit, [facility], [address] [place] [address] [address], [place], [place], [address], tel:[phone] [place] 5 month Dry eye followup (chief complaint) Keratoconjunctiv itis sicca, not specified as Sjogren's, bilateral 4 Amirah OD Geetha. [address] [place] [address] [address], [address], [place], [place], [address], . tel:[phone] Referring Provider: Geetha Wilkerson, [address] [place] [address] [address], [place], [address] . tel:[phone] Office/outpa tient Visit, [facility], [address] [place] [address] [address], [place], [place], [address], tel:[phone] SEC [place] dry eye follow up (chief complaint) Keratoconjunctiv itis sicca, not specified as Sjogren's, bilateralMeibomi an gland dysfnct right eye, upper and lower eyelidsMeibomian gland dysfnct left eye, upper and lower eyelids Dec-2 0 3 Amirah OD Geetha. [address] [place] [address] [address], [address], [place], [place], [address], . tel:[phone] Referring Provider: Geetha Wilkerson, [address] [place] [address] [address], [place], [address] . tel:[phone] Office/outpa tient Visit, [facility], [address] [place] [address] [address], [place], [place], [address], [place] tel:[phone] DEI [place] 1 month followup (chief complaint) Keratoconjunctiv itis sicca, not specified as Sjogren's, bilateralMeibomi an gland dysfnct right eye, upper and lower eyelidsMeibomian gland dysfnct left eye, upper and lower eyelids 3 Amirah OD Geetha. [address] [place] [address] [address], [address], [place], [place], [address], [place]. tel:[phone] Referring Provider: Geetha Wilkerson, [address] [place], [place] [address] [address], [place], [address] . tel:[phone] Office/outpa tient Visit, [facility], [address] [place] [address] [address], [place], [place], [address], [place] tel:[phone] SEC [place] Dry eye follow up (chief complaint) Meibomian gland dysfnct right eye, upper and lower eyelidsMeibomian gland dysfnct left eye, upper and lower eyelidsKeratocon junctivitis sicca, not specified as Sjogren's, bilateral Apr- 3 Amirah OD Geetha. [address] [place] [address] i, [address], [place], [place], [address], . tel:[phone] Referring Provider: Geetha Wilkerson, [address] [place], [place] [address] [address], [place], [address] . tel:[phone] Office/outpa tient Visit, [facility], [address] [place] [address] [address], [place], [place], [address], tel:[phone] DEI [place] Complete exam and dry eye follow up (chief complaint) Keratoconjunctiv itis sicca, not specified as Sjogren's, bilateralMeibomi an gland dysfnct left eye, upper and lower eyelidsMeibomian gland dysfnct right eye, upper and lower eyelids Dec-0 8-202 2 Amirah OD Geetha. [address] [place] [address] [address], [address], [place], [place], [address], . tel:[phone] Referring Provider: Geetha Macario OD K, [address] [place], [place] [address] [address], [place], [address] . tel:[phone] Office/outpa tient Visit, [facility], [address] [place] [address] [address], [place], [place], [address], tel:[phone] SEC [place] Dry eye followup (chief complaint) Keratoconjunctiv itis sicca, not specified as Sjogren's, bilateralMeibomi an gland dysfnct right eye, upper and lower eyelidsMeibomian gland dysfnct left eye, upper and lower eyelids Mar-1 0-202 2 Amirah OD Geetha. [address] [place], [place] [address]i, [address], [place], [place], [address], . tel:[phone] Referring Provider: Geetha Macario OD K, [address] [place] [address] [address], [place], [address] . tel:[phone] Office/outpa tient Visit, [facility], [address] [place] [address] [address], [place], [place], [address], tel:[phone] DEI [place] Dry eye follow up (chief complaint) Meibomian gland dysfnct right eye, upper and lower eyelidsMeibomian gland dysfnct left eye, upper and lower eyelidsKeratocon junctivitis sicca, not specified as Sjogren's, bilateral 1 Amirah OD Geetha. [address] [place] [address] [address], [address], [place], [place], [address], . tel:[phone] Referring Provider: Geetha Wilkerson, [address] [place] [address] [address], [place], [address] . tel:[phone] Office/outpa tient Visit, [facility], [address] [place] [address] [address], [place], [place], [address], tel:[phone] DEI [place] Dry eye Evaluation (chief complaint) Meibomian gland dysfnct right eye, upper and lower eyelidsMeibomian gland dysfnct left eye, upper and lower eyelidsKeratocon junctivitis sicca, not specified as Sjogren's, bilateral Jul-0 1 Amirah OD Geetha. [address] [place] [address] [address], [address], [place], [place], [address], . tel:[phone] Referring Provider: Geetha Wilkerson, [address] [place] [address] [address], [place], [address] . tel:[phone] [facility], [address] [place] [address] [address], [place], [place], [address], tel:[phone] SEC Jean-Pierre Oswald Complete Exam (chief complaint) Keratoconjunctiv itis sicca, not specified as Sjogren's, bilateralPseudop hakia of both eyesMeibomian gland dysfnct left eye, upper and lower eyelidsMeibomian gland dysfnct right eye, upper and lower eyelidsAstigmati sm of both eyes with presbyopiaPresby opiaVitreous degeneration, bilateral 1 Amirah OD Geetha. [address], [address], [place], [place], [address], . tel:[phone] Referring Provider: Geeth[place], [address], [place], [address] . tel:[phone] [facility], [address], [place], [place], [address], tel:[phone] SEC Jean-Pierre Oswald No Information 1 Heriberto Sarkar. [address] [facility], [address], [place], [place], [address], [place]. tel:[phone] [facility], [address] [place] [address] [address], [place], [place], [address], tel:[phone] [facility] No Information 2-200 7 [place] OD Avelino. [address] , [address], [place], [place], [facility] [place], [place]. tel:[phone] Office/outpa tient Visit, [facility], [address], [place], [place], [address], tel:[phone] [facility] No Information 0 1-200 7 [place] OD Avelino. [address] , [address], [place], [place], [facility], . tel:[phone] Family History Family Member Type Diagnosis Age At Onset Problem Family history of degenerati ve disorder of macula Problem Family history of Diabetes jaxson blancas Payers Payer name Insurance type Covered democrat ID Audra ragsdale(s) [place] [id number] [facility] [id number] Social History Type Description Quantity Date Captured [...] takes vitamin B12, Vitamin D3, Vitamin C, [place] 3.TBUT -4.53/-7.14SPEED Dry eye followup The 77 [...] uses Refresh Sahil 3 TID-QID OU, taking [place] 3 1 PO BID. Pt wears mask [...] in both eyes. Pt is currently using [place] 3 Refresh 2-3 x day OU. Pt [...]
--- OUTSIDE RECORDS SUMMARY | 2025-01-25 13:34 | XMS_ITS | Referral Summary ---
Author Organization [facility] [employer] Address [address] [facility] [place] [address] Care Team Providers Care Claims Customer Service Representative Name Role Phone Vira Mcfarland MD Primary Care Provider [phone] Source Comments [facility] [employer],non-owned Affiliates and Associated Physician Practices is amultiple site organization consisting of ambulatory clinics and hospital sitesin [place], [place], [place] and [place]. This disclosure is being madepursuant to the Care Everywhere program and may not contain all information available regarding this patient. Last updated 18.[facility] Medications * Be aware that medications may [...] of Treatment Not on file Care Teams Claims Customer Service Representative Relationship Specialty Start Date End Date Vira Mcfarland MD [address] [place] [address] PCP - General 04/15/18
--- OUTSIDE RECORDS SUMMARY | 2025-01-25 13:34 | XMS_ITS | Encounter Summary ---
Author Organization [facility] Address [address] [place] [address] Phone Care Team Providers Care Divinity Professor Name Role Phone Oma Macario MD Primary Care Provider [phone] Vira Mcfarland MD Primary Care Provider [phone] Encounter Details Date Type Department Care Team [...] on filedocumented in this encounter Care Teams Divinity Professor Relationship Specialty Start Date End Date Oma Macario MD [address] [place] [address] PCP - General 05/22/10 09/12/17 Vira Mcfarland MD [address] [facility] [address] [place] [address] PCP - General Family Medicine 09/13/17 documented as of this encounter
--- OUTSIDE RECORDS SUMMARY | 2025-01-25 13:34 | XMS_ITS | Referral Summary ---
Author Organization [facility] [address] Address [address] [place] [address] Care Team Providers Care City Marshal Name Role Phone Vira Mcfarland MD Primary Care Provider [phone] Allergies Active Allergy Reactions Criticality Noted Date [...] 017 Assessment & Plan (10/18/2017 9:03 AM GRAB OPERATOR): Current carotid ultrasound shows no significant occlusion bilaterally.. Continue risk factor modifications for atherosclerotic vascular disease Assessment & Plan (09/06/2017 1:23 PM CDT): The patient did have left carotid stenosis in 2009 between 50-70%. There are some carotid bruit and therefore will obtain carotid duplex to rule outs progression of carotid stenosis. Dyspnea on exertion 09/06/2017 Assessment & Plan (10/18/2017 9:03 AM GRAB OPERATOR): Likely related to deconditioning and impaired relaxation on echocardiogram. Encourage exercise regimen Assessment & Plan (09/06/2017 1:22 PM CDT): Will obtain an echocardiogram to exclude cardiac etiology for dyspnea on exertion and rule out pulmonary hypertension. Mixed hyperlipidemia 09/06/2017 Assessment & Plan (10/18/2017 9:03 AM GRAB OPERATOR): Increase the try care from 48 [...] on file Legal Sex Female 10:02 AM GRAB OPERATOR Gender Identity Not on file Sexual [...] Gender: Female Attending MD: Brooklyn Sheriff Room: [facility] ENDOSCOPY ROOM 05 Note Status: Finalized [...] The scope was passed under direct vision.The [id number] was introduced through the anusand advanced to the terminal ileum. The colonoscopy was somewhat difficult due to multiple diverticula inthe colon. The patient tolerated the procedure well.The quality of the bowel preparation was evaluatedusing the BBPS ([place] Bowel Preparation Scale) withscores of: Right Colon [...] office in, please contact my office at [phone]. Attending Participation: I personally performed the entire procedure. Electronically signed by Blue Almaraz MD Blue Almaraz M.D. 08/30/2023 11:49:26 AM Number of Addenda: 0 Note Initiated On: 08/30/2023 11:13 AM us Blue Almaraz MD ENDOSCOPY PROCEDUR ES Final Result from Last 3 Months or Most Recently Relevant to Health Maintenance Insurance [facility] MEDICARE [employer] Address: [address] [place] [address] MEDICARE [employer] Address: [address] [place] [phone] [facility] MEDICARE [facility] Advance Directives For more information, please contact: [phone] * Full Code (Latest Code Status on File) Date Activated Date Inactivated Comments 08/30/2023 9:50 AM 08/30/2023 4:39 PM Care Teams City Marshal Relationship Specialty Start Date End Date Vira Mcfarland MD PCP - General Family Medicine 09/13/17
--- OUTSIDE RECORDS SUMMARY | 2025-01-25 13:34 | XMS_ITS | Clinical Summary ---
Author Organization [facility] [employer] Address [address] [facility] [place] [address] Care Team Providers Care Tool Tender Name Role Phone Vira Mcfarland MD Primary Care Provider [phone] Source Comments [facility] [employer],non-owned Affiliates and Associated Physician Practices is amultiple site organization consisting of ambulatory clinics and hospital sitesin [place], [place], [place] and [place]. This disclosure is being madepursuant to the Care Everywhere program and may not contain all information available regarding this patient. Last updated 18.[employer] Medications * Be aware that medications may [...] Comments BONE DENSITY TESTING 1945 MEDICARE AWV 12 MONTHS 1945 DTAP/TDAP/TD VACCINES (1 - [...] to complete this topic MENINGOCOCCAL (Group B) VACC INE SHARED DECISION-MAKING Aged Out No longer eligibl e based on patient's age to complete this topic MENINGOCOCCAL GROUPS A/C/Y/W VACCINE Aged Out No longer eligible b ased on patient's age to complete this topic Care Teams Tool Tender Relationship Specialty Start Date End Date Vira Mcfarland MD [address] [place] [address] PCP - General 04/15/18
== END 2025-01-25 11:39 | disposition home or self-care (01) ==
PROVIDERS: PCP Family Medicine; Visit Provider Family Medicine
DX: J22 Unspecified acute lower respiratory infection (principal)
CPT/HCPCS: 71046

== ENCOUNTER 2025-04-20 14:53 | Outpatient (CLI) | payer MEDICARE, OTHER, SELFPAY ==
--- NOTE | ~2025-04-20 | XR_ITS ---
EXAM: XR abdomen/kub 1V DATE: 04/20/2025 15:08 HISTORY: PT C/O RLQ LLQ PAIN X3 MONTHS . COMPARISON: 01/27/2022; CT abdomen pelvis 11/09/2024. FINDINGS: Clear lung bases. Normal bowel gas pattern. No organomegaly. No abnormal abdominal calcifi cation. Lumbar scoliosis and multilevel degenerative change. Surgical clips over the pelvis. Mild mauricio ateral hip osteoarthritis. Scattered atherosclerotic calcifications. IMPRESSION: No acute abdominopelvic process detected. If pain persists or clinical suspicion of abnor mality is high, recommend CT of the abdomen and pelvis with contrast for further evaluation. Reviewed, dictated and finalized at location K. IMPRESSION: No acute abdominopelvic process detected. If pain persists or clini marco suspicion of abnormality is high, recommend CT of the abdomen and pelvis wi th contrast for further evaluation.
--- OUTSIDE RECORDS SUMMARY | 2025-04-20 14:42 | XMS_ITS | Continuity of Care Document ---
Author Organization [facility] Address [address] [place] [address] Phone Care Team Providers Care Securities Trader Name Role Phone Unavailable Unavailable Unavailable Advance Directives Directive Yes / No Effective Date File Name No Information Encounters Encounter Description Practice Location Reason(s) For Visit Diagnoses Date Provider Providers Copied on Encounter [facility] [employer], [address], [place], [place], [address], [place] tel:[phone] [facility] LUMBAR DISC DISPLACEMENTOTH ADV EFF MED/BIO [...]
--- OUTSIDE RECORDS SUMMARY | 2025-04-20 14:43 | XMS_ITS | Continuity of Care Document ---
Author Organization [facility] [place] Address [address] [place] [address] Phone Care Team Providers Care Director Fraud Name Role Phone Geetha Macario OD Unavailable [...] Providers Copied on Encounter Office/outpa tient Visit, [facility], [address] [place] [address] [address], [place], [place], [address], tel:[phone] DEI Corinne 8 month Dry eye follow up (chief complaint) Keratoconjunctiv itis sicca, not specified as Sjogren's, bilateralMeibomi an gland dysfnct right eye, upper and lower eyelidsMeibomian gland dysfnct left eye, upper and lower eyelids 5 Amirah OD Geetha. [address] [place] [address] [address], [address], [place], [place], [address], . tel:[phone] Referring Provider: Geetha Wilkerson, [address] [place] [address] [address], [place], [address] . tel:[phone] Office/outpa tient Visit, [facility], [address] [place] [address] [address], [place], [place], [address], tel:[phone] SEC Corinne [place] 5 month Dry eye followup (chief complaint) Keratoconjunctiv itis sicca, not specified as Sjogren's, bilateral 4 Amirah OD Geetha. [address] [place] [address] [address], [address], [place], [place], [address], . tel:[phone] Referring Provider: Geetha Wilkerson, [address] [place] [address] [address], [place], [address] . tel:[phone] Office/outpa tient Visit, [facility], [address] [place] [address] [address], [place], [place], [address], tel:[phone] SEC [place]in[place] dry eye follow up (chief complaint) Keratoconjunctiv itis sicca, not specified as Sjogren's, bilateralMeibomi an gland dysfnct right eye, upper and lower eyelidsMeibomian gland dysfnct left eye, upper and lower eyelids Dec-2 0 3 Amirah OD Geetha. [address] [place] [address] [address], [address], [place], [place], [address], . tel:[phone] Referring Provider: Geetha Wilkerson, [address] [place] [address] [address], [place], [address] . tel:[phone] Office/outpa tient Visit, [facility], [address] [place] [address] [address], [place], [place], [address], [place] tel:[phone] DEI Corinne 1 month followup (chief complaint) Keratoconjunctiv itis sicca, not specified as Sjogren's, bilateralMeibomi an gland dysfnct right eye, upper and lower eyelidsMeibomian gland dysfnct left eye, upper and lower eyelids 3 Amirah OD Geetha. [address] [place] [address] [address], [address], [place], [place], [address], [place]. tel:[phone] Referring Provider: Geetha Wilkerson, [address] [place], [place] [address]i [address], [place], [address] . tel:[phone] Office/outpa tient Visit, [facility], [address] [place] [address] [address], [place], [place], [address], [place] tel:[phone] SEC [place]in[place] Dry eye follow up (chief complaint) Meibomian gland dysfnct right eye, upper and lower eyelidsMeibomian gland dysfnct left eye, upper and lower eyelidsKeratocon junctivitis sicca, not specified as Sjogren's, bilateral Apr- 3 Amirah OD Geetha. [address] [place] [address] i, [address], [place], [place], [address], . tel:[phone] Referring Provider: Geetha Wilkerson, [address] [place], [place] [address]i [address], [place], [address] . tel:[phone] Office/outpa tient Visit, [facility], [address] [place] [address] [address], [place], [place], [address], tel:[phone] DEI Corinne Complete exam and dry eye follow up (chief complaint) Keratoconjunctiv itis sicca, not specified as Sjogren's, bilateralMeibomi an gland dysfnct left eye, upper and lower eyelidsMeibomian gland dysfnct right eye, upper and lower eyelids Dec-0 8-202 2 Amirah OD Geetha. [address] [place] [address] [address], [address], [place], [place], [address], . tel:[phone] Referring Provider: Geetha Macario OD K, [address] [place], [place] [address]i [address], [place], [address] . tel:[phone] Office/outpa tient Visit, [facility], [address] [place] [address] [address], [place], [place], [address], tel:[phone] SEC Corinne [place] Dry eye followup (chief complaint) Keratoconjunctiv itis sicca, not specified as Sjogren's, bilateralMeibomi an gland dysfnct right eye, upper and lower eyelidsMeibomian gland dysfnct left eye, upper and lower eyelids Mar-1 0-202 2 Amirah OD Geetha. [address] [place], [place] [address]i, [address], [place], [place], [address], . tel:[phone] Referring Provider: Geetha Macario OD K, [address] [place] [address] [address], [place], [address] . tel:[phone] Office/outpa tient Visit, [facility], [address] [place] [address] [address], [place], [place], [address], tel:[phone] DEI Corinne Dry eye follow up (chief complaint) Meibomian gland dysfnct right eye, upper and lower eyelidsMeibomian gland dysfnct left eye, upper and lower eyelidsKeratocon junctivitis sicca, not specified as Sjogren's, bilateral 1 Amirah OD Geetha. [address] [place] [address] [address], [address], [place], [place], [address], . tel:[phone] Referring Provider: Geetha Wilkerson, [address] [place] [address] [address], [place], [address] . tel:[phone] Office/outpa tient Visit, [facility] [email or web address] [facility], [address] [place] [address] [address], [place], [place], [address], tel:[phone] DEI Corinne Dry eye Evaluation (chief complaint) Meibomian gland dysfnct right eye, upper and lower eyelidsMeibomian gland dysfnct left eye, upper and lower eyelidsKeratocon junctivitis sicca, not specified as Sjogren's, bilateral Jul-0 1 Amirah OD Geetha. [address] [place] [address] [address], [address], [place], [place], [address], . tel:[phone] Referring Provider: Geetha Wilkerson, [address] [place] [address] [address], [place], [address] . tel:[phone] [facility] [email or web address] [facility], [address] [place] [address] [address], [place], [place], [address], tel:[phone] SEC Jean-Pierre Oswald Complete Exam (chief complaint) Keratoconjunctiv itis sicca, not specified as Sjogren's, bilateralPseudop hakia of both eyesMeibomian gland dysfnct left eye, upper and lower eyelidsMeibomian gland dysfnct right eye, upper and lower eyelidsAstigmati sm of both eyes with presbyopiaPresby opiaVitreous degeneration, bilateral 1 Amirah OD Geetha. [address], [address], [place], [place], [address], . tel:[phone] Referring Provider: Geetha Amirah OD K, [address], [place], [address] . tel:[phone] [facility], [address], [place], [place], [address], tel:[phone] SEC Jean-Pierre Oswald No Information 1 Heriberto Sarkar. [address], [address], [place], [place], [address], [place]. tel:[phone] [facility], [address] [place] [address] [address], [place], [place], [address], tel:[phone] [facility] No Information 2-200 7 [place] OD Avelino. [address] , [address], [place], [place], [facility], [place]. tel:[phone] Office/outpa tient Visit, [facility], [address], [place], [place], [address], tel:[phone] [facility] No Information 0 1-200 7 [place] OD Avelino. [address] , [address], [place], [place], [facility], . tel:[phone] Family History Family Member Type Diagnosis Age At Onset Problem Family history of degenerati ve disorder of macula Problem Family history of Diabetes jaxson blancas Payers Payer name Insurance type Covered libertarian ID Audra ragsdale(s) [place] [id number] [facility] [id number] Social History Type Description Quantity Date Captured [...] takes vitamin B12, Vitamin D3, Vitamin C, [place] 3.TBUT -4.53/-7.14SPEED Dry eye followup The 77 [...] uses Refresh Sahil 3 TID-QID OU, taking [place] 3 1 PO BID. Pt wears mask [...] in both eyes. Pt is currently using [place] 3 Refresh 2-3 x day OU. Pt [...]
--- OUTSIDE RECORDS SUMMARY | 2025-04-20 14:43 | XMS_ITS | Clinical Summary ---
Author Organization [facility] Address [address] [place] [address] Phone Care Team Providers Care Shelving Supervisor Name Role Phone Vira Mcfarland MD Primary Care Provider [phone] Active Problems Problem Noted Date Diagnosed Date [...] Health Maintenance Due Date Last Done Comments Hepatitis C Virus (HCV) Screening 1945 TdaP Immunization 1945 Pneumococcal Immunization (5 0+ years) (1 of 1 - PCV) 1994 Zoster Immunization (1 of 2) 1994 Respiratory Syncytial Virus (RSV) Immunization (Adult) (1 - 1-dose 75+ series) 2019 SARS-COV-2 Immunization ( - season) 2024 Influenza Immunization (Seas on Ended) 2025 Hepatitis B Immunization Aged Out No longer eligible based on patient's age to complete this topic Human Papillomavirus (HPV) Immunization Aged Out No longer eligible b ased on patient's age to complete this topic Meningococcal Immunization (ACWY) Aged Out No longer eligible based on patient's age to complete this topic Rotavirus Immunization Aged Out No lo nger eligible based on patient's age to complete this topic Insurance MEDICARE [facility] Care Teams Shelving Supervisor Relationship Specialty Start Date End Date Vira Mcfarland MD [address] [place] [address] PCP - General Family Medicine 03/09/17
--- OUTSIDE RECORDS SUMMARY | 2025-04-20 14:43 | XMS_ITS | Clinical Summary ---
Author Organization [facility] Address [address] [facility] [place] [address] Care Team Providers Care Soaker Meat Name Role Phone Vria Mcfarland MD Primary Care Provider [phone] [facility],non-owned Affiliates and Associated Physician Practices is amultiple site organization consisting of ambulatory clinics and hospital sitesin [place], [place], [place] and [place]. This disclosure is being madepursuant to the Care Everywhere program and may not contain all information available regarding this patient. Last updated 18.[employer] [facility] Medications * Be aware that medications may not be up to date on this document. Alwaysverify current medications with the patient. cycloSPORINE (RESTASIS) 0.05 % ophthalmic suspension Instill 1 drop into both eyes 2 times daily 5 Box 5 10/31/2018 Active Social History Tobacco Use Types Packs/Day Years Used Date Smoking Tobacco: Never Assessed Comments Unknown Sex and Gender Information Value Date Recorded Sex Assigned at Not on file Legal Sex Female 6:12 AM MD PEDIATRIC ALLERGIST Gender Identity Not on file Sexual Orientation [...] 7:41 AM CDT Height 162.6 cm (5' 4) 08/13/2016 7:41 AM CDT Body Mass Index 24.89 08/13/2016 7:41 AM CDT Plan of Treatment Health Maintenance Due Date Last Done Comments BONE DENSITY TESTING 1945 DTAP/TDAP/TD VACCINES (1 - Tdap) 1963 PNEUMOCOCCAL VACCINE 50+ (1 of 1 - PCV) 1994 ZOSTER VACCINE (1 of 2) 1994 Respiratory Syncytial Virus (RSV) Vaccine Pt: or over 60 yrs (1 - 1-dose 75+ series) 2019 COVID-19 VACCINE ( - 2023-2 5 season) 2024 DEPRESSION SCREENING 11/15/2024 INFLUENZA VACCINE (Season Ended) 2025 HEPATITIS B VACCINE Aged Out No longe [...] age to complete this topic Insurance MEDICARE [facility] MEDICARE [facility] Care Teams Soaker Meat Relationship Specialty Start Date End Date Vira Mcfarland MD [address] [place] [address] PCP - General 04/15/18
--- OUTSIDE RECORDS SUMMARY | 2025-04-20 14:55 | XMS_ITS | Encounter Summary ---
Author Organization [facility] Address [address] [place] [address] Phone Care Team Providers Care Manufacturing Test Technician Name Role Phone Oma Macario MD Primary Care Provider [phone] Vira Mcfarland MD Primary Care Provider [phone] Encounter Details Date Type Department Care Team (Late st Contact Info) Description 02/22/2012 Orders Only [facility] Scanning, Provider Social History Tobacco Use Types Packs/Day Years Used Date Smoking Tobacco: Never Assessed Comments Unknown Sex and Gender Information Value Date Recorded Sex Assigned at Not on file Legal Sex Female 10:02 AM PAPERHANGER Gender Identity Not on file Sexual Orientation [...] on filedocumented in this encounter Care Teams Manufacturing Test Technician Relationship Specialty Start Date End Date Oma Macario MD [address] [facility] [address] [place] [address] PCP - General 05/22/10 09/12/17 Vira Mcfarland MD [address] [facility] [address] [place] [address] PCP - General Family Medicine 09/13/17 documented as of this encounter
--- OUTSIDE RECORDS SUMMARY | 2025-04-20 14:55 | XMS_ITS | Clinical Summary ---
Author Organization [facility] [address] Address [address] [place] [address] Care Team Providers Care Brick Chimney Supervisor Name Role Phone Vira Mcfarland MD Primary Care Provider [phone] Allergies Active Allergy Reactions Criticality Noted Date [...] (PriLOSEC) 40 mg capsule 06/29/20 22 Active linaCLOtide (LINZESS) 72 mcg capsule Take 1 capsule (72 mcg total) by mouth daily before breakfast 30 capsule 02/22/20 25 Active Active Problems Problem Noted Date Diagnosed [...] 017 Assessment & Plan (10/18/2017 9:03 AM LOSS PREVENTION AGENT): Current carotid ultrasound shows no significant occlusion bilaterally.. Continue risk factor modifications for atherosclerotic vascular disease Assessment & Plan (09/06/2017 1:23 PM CDT): The patient did have left carotid stenosis in 2009 between 50-70%. There are some carotid bruit and therefore will obtain carotid duplex to rule outs progression of carotid stenosis. Dyspnea on exertion 09/06/2017 Assessment & Plan (10/18/2017 9:03 AM LOSS PREVENTION AGENT): Likely related to deconditioning and impaired relaxation on echocardiogram. Encourage exercise regimen Assessment & Plan (09/06/2017 1:22 PM CDT): Will obtain an echocardiogram to exclude cardiac etiology for dyspnea on exertion and rule out pulmonary hypertension. Mixed hyperlipidemia 09/06/2017 Assessment & Plan (10/18/2017 9:03 AM LOSS PREVENTION AGENT): Increase the try care from 48 mg daily to 96 mg daily because the triglycerides are still elevated. Continue Lipitor 10 mg p.o. daily. Assessment & Plan (09/06/2017 1:23 PM CDT): Will start Lipitor 10 mg p.o. daily. Intrinsic urethral sphincter deficiency 02/26/20 11 Encounters Date Type Department Care Team Description 03/21/2025 Telephone [facility] [address] [place] [address] [place] [id number] Omaira Tyson LPN Follow-up (Needing 4 week med and symptom update ) 02/21/2025 11:30 AM CDT Office Visit [facility] [address] [place] [address] [place] [address] Blue Singh MD Irritable bowel syndrome with constipation (Primary Dx); Bloating; Colon cancer screening from Last 3 Months Immunizations Immunization Administration Dates Next Due Pfizer SARS-CoV-2 Monovalent Vaccination (12+ Yrs) PURPLE 02/05/2021,01/12/2021 Surgical History Surgery Date Site/Laterality Comments HYSTERECTOMY CATARACT EXTRACTION EXTRACAPSULAR W/ INTRAOCULAR LENS IMPLANTATION 11/15/2015 - 11/14/2016 Bilateral BLEPHAROPTOSIS REPAIR 11/15/2013 - 11/14/2014 Bilateral INCONTINENCE SURGERY 2002, 2003, 2009 COLONOSCOPY Medical History Medical History Date Comments [...] on file Legal Sex Female 10:02 AM LOSS PREVENTION AGENT Gender Identity Not on file Sexual Orientation Not on file Obstetrics History Last Filed Vital Signs Vital Sign Reading Time Taken Comments Blood Pressure 132/66 02/21/2025 11:25 AM CDT Pulse 61 02/21/2025 11:25 AM CDT Temperature 36.5 C (97.7 F) 02/21/2025 11:25 AM CDT Respiratory Rate 31 08/30/2023 12:2 4 PM CDT Oxygen Saturation 94% 02/21/2025 11: 25 AM CDT Inhaled Oxygen Concentration - - Weight 57.5 kg (126 lb 12.8 oz) 025 11:25 AM CDT Height 162.6 cm (5' 4) 02/21/2025 11:2 5 AM CDT Body Mass Index 21.77 02/21/2025 11:25 AM CDT Plan of Treatment Health Maintenance Due Date Last Done Comments Depression Screening 1945 Osteoporosis Screening-Bone Density Scan 1944 DTaP/Tdap/Td Vaccine (1 - Tdap) 1955 Hepatitis B Screening 1962 Zoster Vaccine (1 of 2) 1994 Well Visit 65+ 2009 Pneumococcal vaccine 65+ (2 of 2 - PPSV23) 08/06/2016 08/06/2015 Covid-19 Vaccine (3 - season) 2024, 01/12/2021 Fall Risk Assessment 08/30/2024 08/30/2023 Influenza Vaccine (Season Ended) 2025 08/06/20 15, 09/12/2014 Colon Cancer Screening-CT Colonography Discontinued Colon Cancer [...] Gender: Female Attending MD: Brooklyn Sheriff Room: [facility] ENDOSCOPY ROOM 05 Note Status: Finalized [...] The scope was passed under direct vision.The [id number] was introduced through the anusand advanced to the terminal ileum. The colonoscopy was somewhat difficult due to multiple diverticula inthe colon. The patient tolerated the procedure well.The quality of the bowel preparation was evaluatedusing the BBPS (Butler Bowel Preparation Scale) withscores of: Right Colon [...] office in, please contact my office at [phone]. Attending Participation: I personally performed the entire procedure. Electronically signed by Blue Almaraz MD Blue Almaraz M.D. 08/30/2023 11:49:26 AM Number of Addenda: 0 Note Initiated On: 08/30/2023 11:13 AM us Blue Almaraz MD ENDOSCOPY PROCEDUR ES Final Result from Last 3 Months or Most Recently Relevant to Health Maintenance Insurance [facility] MEDICARE MEDICARE MEDICARE [facility] Advance Directives For more information, please contact: [phone] * Full Code (Latest Code Status on File) Date Activated Date Inactivated Comments 08/30/2023 9:50 AM 08/30/2023 4:39 PM Care Teams Brick Chimney Supervisor Relationship Specialty Start Date End Date Vira Mcfarland MD PCP - General Family Medicine 09/13/17
--- OUTSIDE RECORDS SUMMARY | 2025-04-20 14:55 | XMS_ITS | Continuity of Care Document ---
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 [address] [place] [address] [address], [address], [place], [place], [address], . tel:[phone] Referring Provider: Geetha Wilkerson, [address] [place] [address] [address], [place], [address] . tel:[phone] [place] [facility] [place] [address] [place] [address] [address], [place], [place], [address], tel:[phone] [place] 5 month Dry eye followup (chief complaint) Keratoconjunctiv itis sicca, not specified as Sjogren's, bilateral 4 Amirah OD Geetha. [address] [place] [address] [address], [address], [place], [place], [address], . tel:[phone] Referring Provider: Geetha Wilkerson, [address] [place] [address] [address], [place], [address] . tel:[phone] [place] [facility] [place] [address] [place] [address] [address], [place], [place], [address], tel:[phone] SEC [place] dry eye follow up (chief complaint) Keratoconjunctiv itis sicca, not specified as Sjogren's, bilateralMeibomi an gland dysfnct right eye, upper and lower eyelidsMeibomian gland dysfnct left eye, upper and lower eyelids Dec-2 0 3 Amirah OD Geetha. [address] [place] [address] [address], [address], [place], [place], [address], . tel:[phone] Referring Provider: Geetha Wilkerson, [address] [place] [address] [address], [place], [address] . tel:[phone] Office/outpa tient Visit, [facility], [address] [place] [address] [address], [place], [place], [address], [place] tel:[phone] [facility] [place] 1 month followup (chief complaint) Keratoconjunctiv itis sicca, not specified as Sjogren's, bilateralMeibomi an gland dysfnct right eye, upper and lower eyelidsMeibomian gland dysfnct left eye, upper and lower eyelids 3 Amirah OD Geetha. [address] [place] [address] [address], [address], [place], [place], [address], [place]. tel:[phone] Referring Provider: Geetha Wilkerson, [address] [place], [place] [address]i [address], [place], [address] . tel:[phone] [place] [facility] [place] [address] [place] [address] [address], [place], [place], [address], [place] tel:[phone] SEC [place] Dry eye follow up (chief complaint) Meibomian gland dysfnct right eye, upper and lower eyelidsMeibomian gland dysfnct left eye, upper and lower eyelidsKeratocon junctivitis sicca, not specified as Sjogren's, bilateral Apr- 3 Amirah OD Geetha. [address] [place] [address] i, [address], [place], [place], [address], . tel:[phone] Referring Provider: Geetha Wilkerson, [address] [place], [place] [address] [address], [place], [address] . tel:[phone] Office/outpa tient Visit, [facility], [address] [place] [address] [address], [place], [place], [address], tel:[phone] [facility] [place] Complete exam and dry eye follow up (chief complaint) Keratoconjunctiv itis sicca, not specified as Sjogren's, bilateralMeibomi an gland dysfnct left eye, upper and lower eyelidsMeibomian gland dysfnct right eye, upper and lower eyelids Dec-0 8-202 2 Amirah OD Geetha. [address] [place] [address] [address], [address], [place], [place], [address], . tel:[phone] Referring Provider: Geetha Macario OD K, [address] [place], [place] [address] [address], [place], [address] . tel:[phone] [place] [facility] [place] [address] [place] [address] [address], [place], [place], [address], tel:[phone] SEC [place] Dry eye followup (chief complaint) Keratoconjunctiv itis sicca, not specified as Sjogren's, bilateralMeibomi an gland dysfnct right eye, upper and lower eyelidsMeibomian gland dysfnct left eye, upper and lower eyelids Mar-1 0-202 2 Amirah OD Geetha. [address] [place], [place] [address], [address], [place], [place], [address], . tel:[phone] Referring Provider: Geetha Macario OD K, [address] [place] [address] [address], [place], [address] . tel:[phone] Office/outpa tient Visit, [facility], [address] [place] [address] [address], [place], [place], [address], tel:[phone] DE[facility] [place] Dry eye follow up (chief complaint) Meibomian gland dysfnct right eye, upper and lower eyelidsMeibomian gland dysfnct left eye, upper and lower eyelidsKeratocon junctivitis sicca, not specified as Sjogren's, bilateral 1 Amirah OD Geetha. [address] [place] [address] [address], [address], [place], [place], [address], . tel:[phone] Referring Provider: Geetha Wilkerson, [address] [place] [address] [address], [place], [address] . tel:[phone] Office/outpa tient Visit, [facility], [address] [place] [address] [address], [place], [place], [address], tel:[phone] DEI [place] Dry eye Evaluation (chief complaint) Meibomian gland dysfnct right eye, upper and lower eyelidsMeibomian gland dysfnct left eye, upper and lower eyelidsKeratocon junctivitis sicca, not specified as Sjogren's, bilateral Jul-0 1 Amirah OD Geetha. [address] [place] [address] [address], [address], [place], [place], [address], . tel:[phone] Referring Provider: Geetha Wilkerson, [address] [place] [address] [address], [place], [address] . tel:[phone] [facility], [address] [place] [address] [address], [place], [place], [address], tel:[phone] SEC Jean-Pierre Oswald Complete Exam (chief complaint) Keratoconjunctiv itis sicca, not specified as Sjogren's, bilateralPseudop hakia of both eyesMeibomian gland dysfnct left eye, upper and lower eyelidsMeibomian gland dysfnct right eye, upper and lower eyelidsAstigmati sm of both eyes with presbyopiaPresby opiaVitreous degeneration, bilateral 1 Amirah OD Geetha. [address], [address], [place], [place], [address], . tel:[phone] Referring Provider: Geetha Amirah OD [place], [address], [place], [address] . tel:[phone] [facility], [address], [place], [place], [address], tel:[phone] SEC Jean-Pierre Oswald No Information 1 Heriberto Sarkar. [address], [address], [place], [place], [address], [place]. tel:[phone] [facility], [address] [place] [address] [address], [place], [place], [address], tel:[phone] [facility] No Information 2-200 7 [place] OD Avelino. [address] , [address], [place], [place], [facility], [place]. tel:[phone] [place] [facility] [place] [address], [place], [place], [address], tel:[phone] [facility] No Information 0 1-200 7 [place] OD Avelino. [address] , [address], [place], [place], [facility], . tel:[phone] Family History Family Member Type Diagnosis Age At Onset Problem Family history of degenerati ve disorder of macula Problem Family history of Diabetes jaxson blancas Payers Payer name Insurance type Covered green party ID Audra ragsdale(s) [place] [id number] [facility] [id number] Social History Type Description Quantity Date Captured [...] takes vitamin B12, Vitamin D3, Vitamin C, Gasquet 3.TBUT -4.53/-7.14SPEED Dry eye followup The 77 [...] uses Refresh Sahil 3 TID-QID OU, taking Gasquet 3 1 PO BID. Pt wears mask [...] in both eyes. Pt is currently using Gasquet 3 Refresh 2-3 x day OU. Pt [...]
--- OUTSIDE RECORDS SUMMARY | 2025-04-20 14:55 | XMS_ITS | Referral Summary ---
Author Organization [facility] [address] Address [address] [place] [address] Care Team Providers Care Patient Office Rep Name Role Phone Vira Mcfarland MD Primary Care Provider Encounters Date Type Department Care Team Description 03/21/2025 Telephone [facility] [address] [facility] [address]th [place] [address] [place] [address] Omaira Tyson LPN Follow-up (Needing 4 week med and symptom update ) 02/21/2025 11:30 AM CDT Office Visit [facility] [address] [facility] 12th [place] [address] [place] [address] Blue Singh MD Irritable bowel syndrome with constipation (Primary Dx); Bloating; Colon cancer screening from Last 3 Months Allergies Active Allergy Reactions Criticality Noted Date [...] 017 Assessment & Plan (10/18/2017 9:03 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 Continue risk factor modifications for atherosclerotic vascular disease Assessment & Plan (09/06/2017 1:23 PM CDT): The patient did have left carotid stenosis in 2009 between 50-70%. There are some carotid bruit and therefore will obtain carotid duplex to rule outs progression of carotid stenosis. Dyspnea on exertion 09/06/2017 Assessment & Plan (10/18/2017 9:03 AM RICE FIELD WORKER): Likely related to deconditioning and impaired relaxation on echocardiogram. Encourage exercise regimen Assessment & Plan (09/06/2017 1:22 PM CDT): Will obtain an echocardiogram to exclude cardiac etiology for dyspnea on exertion and rule out pulmonary hypertension. Mixed hyperlipidemia 09/06/2017 Assessment & Plan (10/18/2017 9:03 AM RICE FIELD WORKER): Increase the try care from 48 mg [...] on file Legal Sex Female 10:02 AM RICE FIELD WORKER Gender Identity Not on file Sexual [...] 02/21/2025 11:25 AM CDT Plan of Treatment Not on [...] Gender: Female Attending MD: Brooklyn Sheriff Room: [facility] 05 Note Status: Finalized [...] The scope was passed under direct vision.The [id number] was introduced through the anusand advanced to the terminal ileum. The colonoscopy was somewhat difficult due to multiple diverticula inthe colon. The patient tolerated the procedure well.The quality of the bowel preparation was evaluatedusing the BBPS ([place] Bowel Preparation Scale) withscores of: Right Colon [...] not receive the result from my office in7 business days, please contact my office at [phone]. Attending Participation: I personally performed the entire procedure. Electronically signed by Blue Almaraz MD Blue Almaraz M.D. 08/30/2023 11:49:26 AM Number of Addenda: 0 Note Initiated On: 08/30/2023 11:13 AM Blue Almaraz MD ENDOSCOPY PROCEDUR ES Final Result from Last 3 Months or Most Recently Relevant to Health Maintenance Insurance [facility] MEDICARE MEDICARE MEDICARE [facility] Advance Directives For more information, please contact: [phone] * Full Code (Latest Code Status on File) Date Activated Date Inactivated Comments 08/30/2023 9:50 AM 08/30/2023 4:39 PM Care Teams Patient Office Rep Relationship Specialty Start Date End Date Vira Mcfarland MD PCP - General Family Medicine 09/13/17
--- OUTSIDE RECORDS SUMMARY | 2025-04-20 14:55 | XMS_ITS | Continuity of Care Document ---
Author Organization [facility] Address [address] [place] [address] Phone Care Team Providers Care Mental Hygiene Consultant Name Role Phone Unavailable Unavailable Unavailable Advance Directives Directive Yes / No Effective Date File Name No Information Encounters Encounter Description Practice Location Reason(s) For Visit Diagnoses Date Provider Providers Copied on Encounter [facility], [address], [place], [place], [address], [place] tel:[phone] [facility] LUMBAR DISC DISPLACEMENTOTH ADV EFF MED/BIO [...]
[2025-04-20 15:30] LABS: Anion Gap 7 mmol/L (4-12); Blood Urea Nitrogen 32 mg/dL (7-17); Calcium 9.3 mg/dL (8.4-10.2); Carbon Dioxide 28 mmol/L (22-30); Chloride 96 mmol/L (98-107); Estimated Glomerular Filt Rate 40; Glucose 101 mg/dL (65-110); Sodium 131 mmol/L (137-145)
== END 2025-04-20 14:54 | disposition home or self-care (01) ==
PROVIDERS: PCP Family Medicine; Visit Provider Student in an Organized Health Care Education/Training Program
DX: R10.9 Unspecified abdominal pain (principal); N18.30 Chronic kidney disease, stage 3 unspecified
CPT/HCPCS: 36415; 74018; 80048

== ENCOUNTER 2025-04-26 14:11 | Outpatient (CLI) | payer MEDICARE, OTHER, SELFPAY ==
--- NOTE | ~2025-04-26 | US_ITS ---
Renal-Bladder ultrasound Clinical History: Disorder of kidney and ureter Technique: Real-time sonographic imaging of the kidneys and urinary bladder was performed. Findings: The right kidney measures 9.8 cm in length and the left kidney measures 9.9 cm. There is no hydronephrosis or renal calculus identified. Renal cortical echogenicity is within normal limits. No renal mass lesion is identified. The urinary bladder is moderately distended at the time of this exam. No intraluminal echoes are iden tified. No abnormal wall thickening is seen. Impression: Unremarkable ultrasound of the kidneys and urinary bladder. Reviewed, dictated and finalized at location M. Impression: Unremarkable ultrasound of the kidneys and urinary bladder.
== END 2025-04-26 14:12 | disposition home or self-care (01) ==
LOC: MICIMG 14:12
PROVIDERS: PCP Family Medicine; Visit Provider Student in an Organized Health Care Education/Training Program
DX: N28.9 Disorder of kidney and ureter, unspecified (principal)
CPT/HCPCS: 76775

== ENCOUNTER 2025-05-10 13:09 | Outpatient (CLI) | payer MEDICARE, SELFPAY ==
[2025-05-10 14:46] LABS: Anion Gap 8 mmol/L (4-12); Blood Urea Nitrogen 26 mg/dL (7-17); Calcium 9.3 mg/dL (8.4-10.2); Carbon Dioxide 26 mmol/L (22-30); Chloride 96 mmol/L (98-107); Estimated Glomerular Filt Rate 47; Glucose 90 mg/dL (65-110); Potassium 4.4 mmol/L (3.4-5.0); Sodium 130 mmol/L (137-145)
== END 2025-05-10 13:10 | disposition home or self-care (01) ==
PROVIDERS: PCP Family Medicine; Visit Provider Student in an Organized Health Care Education/Training Program
DX: E87.1 Hypo-osmolality and hyponatremia (principal)
CPT/HCPCS: 36415; 80048

== ENCOUNTER 2025-09-26 17:01 | Emergency (ER) | payer MEDICARE, OTHER, SELFPAY ==
--- OUTSIDE RECORDS SUMMARY | 2025-05-24 04:00 | XMS_ITS | Continuity of Care Document ---
Author Organization [facility] [place] Address [address] [facility] [address] [place] [phone] Phone Care Team Providers Care Sign Maintenance Name Role Phone Geetha Macario OD Unavailable [...] into affected eye(s) 1 drop - Active VITAMIN B-12 (unknown [...] tablet daily - Active Procedures Procedure Date Office/outpatient Visit, Est Close Tear Duct Opening No Charge Optomap Fundus Photos 025 Close Tear Duct Opening Office/outpatient Visit, Est Office/outpatient Visit, Est InflammaDry [...] Copied on Encounter Office/outpa tient Visit, Est [facility], [address], [place], [place], [id number], [place] tel:[phone] Sanchez 6 month dilated exam (chief complaint) Keratoconjunctiv itis sicca, not specified as Sjogren's, bilateralMeibomi an gland dysfnct left eye, upper and lower eyelidsMeibomian gland dysfnct right eye, upper and lower eyelids 0-202 5 Amirah OD Geetha. [address], [address], [place], [place], [address], . tel:[phone] Referring Provider: Geetha Wilkerson, [address] [place] [address] [address], [place], [address] . tel:[phone] Office/outpa tient Visit, [facility], [address] [place] [address] [address], [place], [place], [id number], tel:[phone] [facility] [place] 8 month Dry eye follow up (chief complaint) Keratoconjunctiv itis sicca, not specified as Sjogren's, bilateralMeibomi an gland dysfnct right eye, upper and lower eyelidsMeibomian gland dysfnct left eye, upper and lower eyelids 5 Amirah OD Geetha. [address] [place] [address] [address], [address], [place], [place], [address], . tel:[phone] Referring Provider: Geetha Wilkerson, [address] [place] [address] [address], [place], [address] . tel:[phone] Office/outpa tient Visit, [facility], [address] [place] [address] [address], [place], [place], [address], [place] tel:[phone] SEC [place] 5 month Dry eye followup (chief complaint) Keratoconjunctiv itis sicca, not specified as Sjogren's, bilateral March- 4 Amirah OD Geetha. [address] [place] [address] [address], [address], [place], [place], [address], [place]. tel:[phone] Referring Provider: Geetha Wilkerson, [address] [place] [address] [address], [place], [address] . tel:[phone] Office/outpa tient Visit, [facility], [address] [place] [address] [address], [place], [place], [address], [place] tel:[phone] SEC [place] dry eye follow up (chief complaint) Keratoconjunctiv itis sicca, not specified as Sjogren's, bilateralMeibomi an gland dysfnct right eye, upper and lower eyelidsMeibomian gland dysfnct left eye, upper and lower eyelids Dec 0- 3 Amirah OD Geetha. [address] [place] [address] [address], [address], [place], [place], [address], . tel:[phone] Referring Provider: Geetha Wilkerson, [address] [place] [address] [address], [place], [address] . tel:[phone] Office/outpa [facility]ient Visit, [facility], [address] [place] [address] [address], [place], [place], [address], [phone] [facility] [place] 1 month followup (chief complaint) Keratoconjunctiv itis sicca, not specified as Sjogren's, bilateralMeibomi an gland dysfnct right eye, upper and lower eyelidsMeibomian gland dysfnct left eye, upper and lower eyelids 3 Amirah OD Geetha. [address] [place], [place] [address], [address], [place], [place], [id number], . tel:[phone] Referring Provider: Geetha Wilkerson, [address] [place] [address] [address], [place], [address] . tel:[phone] Office/outpa tient Visit, [facility], [address] [place] [address] [address], [place], [place], [address], [phone] SEC [place] Dry eye follow up (chief complaint) Meibomian gland dysfnct right eye, upper and lower eyelidsMeibomian gland dysfnct left eye, upper and lower eyelidsKeratocon junctivitis sicca, not specified as Sjogren's, bilateral Apr-11 17- 3 Amirah OD Geetha. [address] [place] [address] [address], [address], [place], [place], [address], . tel:[phone] Referring Provider: Geetha Wilkerson, [address] [place], [place] [address] [address], [place], [address] . tel:[phone] Office/outpa tient Visit, [facility], [address] [place] [address] [address], [place], [place], [address], tel:[phone] DE[facility] [place] Complete exam and dry eye follow up (chief complaint) Keratoconjunctiv itis sicca, not specified as Sjogren's, bilateralMeibomi an gland dysfnct left eye, upper and lower eyelidsMeibomian gland dysfnct right eye, upper and lower eyelids Dec-0 8-202 2 Amirah OD Geetha. [address] [place], [place] [address], [address], [place], [place], [address], . tel:[phone] Referring Provider: Geetha Wilkerson, [address] [place], [place] [address] [address], [place], [address] . tel:[phone] Office/outpa tient Visit, [facility], [address] [place] [address] [address], [place], [place], [address], tel:[phone] SEC [place] Dry eye followup (chief complaint) Keratoconjunctiv itis sicca, not specified as Sjogren's, bilateralMeibomi an gland dysfnct right eye, upper and lower eyelidsMeibomian gland dysfnct left eye, upper and lower eyelids Mar-1 0-202 2 Amirah OD Geetha. [address] [place], [place] [address], [address], [place], [place], [address], . tel:[phone] Referring Provider: Geetha Wilkerson, [address] [place], [place] [address] [address], [place], [address] . tel:[phone] Office/outpa tient Visit, [facility], [address] [place] [address] [address], [place], [place], [address], tel:[phone] DE[facility] [place] Dry eye follow up (chief complaint) Meibomian gland dysfnct right eye, upper and lower eyelidsMeibomian gland dysfnct left eye, upper and lower eyelidsKeratocon junctivitis sicca, not specified as Sjogren's, bilateral Dec- 1 Amirah OD Geetha. [address] [place] [address] [address], [address], [place], [place], [address], . tel:[phone] Referring Provider: Geetha Wilkerson, [address] [place] [address] [address], [place], [address] . tel:[phone] Office/outpa tient Visit, [facility], [address] [place] [address] [address], [place], [place], [address], [place] tel:[phone] [facility] [place] Dry eye Evaluation (chief complaint) Meibomian gland dysfnct right eye, upper and lower eyelidsMeibomian gland dysfnct left eye, upper and lower eyelidsKeratocon junctivitis sicca, not specified as Sjogren's, bilateral Sep-0 1 Amirah OD Geetha. [address] [place] [address] [address], [address], [place], [place], [address], . tel:[phone] Referring Provider: Geetha Wilkerson, [address] [place] [address] [address], [place], [address] . tel:[phone] [facility], [address] [place] [address] [address], [place], [place], [address], [place] tel:[phone] SEC Jean-Pierre Oswald Complete Exam (chief complaint) Keratoconjunctiv itis sicca, not specified as Sjogren's, bilateralPseudop hakia of both eyesMeibomian gland dysfnct left eye, upper and lower eyelidsMeibomian gland dysfnct right eye, upper and lower eyelidsAstigmati sm of both eyes with presbyopiaPresby opiaVitreous degeneration, bilateral 1 Amirah OD Geetha. [facility] [address] [employer] [address], [address], [place], [place], [address], . tel:[phone] Referring Provider: Geetha Amirah OD K, [address] [place] [address] [address], [place], [address] . tel:[phone] [facility], [address] [place] [address] [address], [place], [place], [address], tel:[phone] SEC Jean-Pierre Oswald No Information 1 Heriberto Sarkar. [facility] [address], [address], [place], [place], [address], . tel:[phone] [facility], [address] [place] [address] [address], [place], [place], [address], tel:[phone] [facility] No Information 2-200 7 [place] OD Avelino. [address], [place], [place], [facility], . tel:[phone] Office/outpa tient Visit, Est [facility], [address] [place] [address] [address], [place], [place], [address], tel:[phone] SEC [facility] No Information 1-200 7 [place] OD Avelino. [address] , [address], [place], [address], . tel:[phone] Family History Family Member Type Diagnosis Age At Onset Problem Family history of degenerati ve disorder of macula Problem Family history of Diabetes jaxson blancas Payers Payer name Insurance type Covered libertarian ID Authoriza tion(s) [place] [id number] [facility] [id number] Social History Type Description Quantity Date Captured Comments Alcohol Use Details No Caffeine Use Details Tobacco Use Status Current non-smoker Smoking Status Never smoker Non-Smoking Tobacco Use Details : No Details Available : No Details Available Sex Female Chief Complaint And Reason For Visit From encounter dated '05/24/2025 10:00'. 6 month dilated exam (chief complaint). Description: The 79 year old patient presents for evaluation of 6 month dilated exam in the right eye and left eye. Pt is using Pataday ou 2-3 x day, and Mieboou bid. Pt states her eyes are a little dry. Pt states eyes are itching. Pt states vision blurs offand on in OD.Speed score: TBUT: OD: 3.63 OS: 3.63 Reason For Referral Reason For Referral No Information Plan Of Treatment Date Type Action Status Appointment Madeline Mancera BOOKED Patient Education Dry Eyes: Care Instruct ions completed History Of Present Illness Encounter Date Complaint History Of Prese nt Illness 6 month dilated exam The 79 year old patient presents for evaluation of 6 month dilated exam in the right eye and left eye. Pt is using Pataday ou 2-3 x day, and Miebo ou bid. Pt states her eyes are a little dry. Pt states eyes are itching. Pt states vision blurs off and on in OD.Speed score: TBUT: OD: 3.63 OS: 3.63 8 month Dry eye follow up The [...] takes vitamin B12, Vitamin D3, Vitamin C, [place] 3.TBUT -4.53/-7.14SPEED Dry eye followup The 76 [...] uses Refresh Sahil 3 TID-QID OU, taking [place] 3 1 PO BID. Pt wears mask [...] in both eyes. Pt is currently using [place] 3 Refresh 2-3 x day OU. Pt [...] as Sjogren's, bilateral assessment Meibomian gland dysfnct left eye , upper and lower eyelids assessment Meibomian gland dysfnct right ey e, upper and lower eyelids Patient Care Teams Name Effective Dates (start - stop) Status Members No Information
--- NOTE | ~2025-09-26 | CT_ITS ---
CT chest abdomen pelvis wo con HISTORY: cp, sob, upper abd pain . COMPARISON: None. TECHNIQUE: Axial images of the chest, abdomen and pelvis were obtained without infusion of intravenous contrast. FINDINGS: CT CHEST: Mild peripheral tree-in-bud opacities are present bilaterally. There 3 to 4 mm pulmonary nodules within the lower lobes bilaterally. There is no effusion or pneumothorax.] [There is no mediastinal adenopathy.] Heart size is normal. IMPRESSION: Mild peripheral tree-in-bud opacities are present bilaterally. No focal consolidation, pleural effusions or pneumothorax. CT abdomen and pelvis with contrast: The liver parenchyma is unremarkable. No intrahepatic mass or ductal dilatation is evident. Mild thickening of the gallbladder wall is noted. The pancreas and spleen are normal in appearance. The adrenal glands are symmetric in size. Kidneys are unremarkable. No intrarenal stones.. There is no hydronephrosis. Evaluation of the stomach and bowel loops are limited due to lack of oral contrast. The appendix is normal in appearance. Colonic diverticulosis is noted without evidence of acute diverticulitis. The bladder and rectum are normal. No free intraperitoneal fluid or air is evident. There is no significant retroperitoneal lymphadenopathy. The lower thoracic and lumbar vertebrae are in normal alignment. IMPRESSION: No acute abnormality is noted in the abdomen and pelvis. Colonic diverticulosis without evidence of acute diverticulitis. All CT scans at this facility are performed using low dose modulation techniques as appropriate to perform exam including the following: automated exposure control; use of iterative reconstruction technique; adjustment of the mA and/or kV according to patient size (this includes techniques or standardized protocols for targeted exams where dose is matched to indication/reason for exam) Reviewed, dictated and finalized at location S. DESIGN SUPERVISOR IMPRESSION: Mild peripheral tree-in-bud opacities are present bilaterally. No focal consoli dation, pleural effusions or pneumothorax. CT abdomen and pelvis with contrast: The liver parenchyma is unremarkable. No intrahepatic mass or ductal dilatation is evident. Mild thickening of the gallbladder wall is noted. The pancreas and spleen are normal in appearance. The adrenal glands are symmetric in size. Kidneys are unremarkable. No intrarenal stones.. There is no hydronephrosis. Evaluation of the stomach and bowel loops are limited due to lack of oral contr ast. The appendix is normal in appearance. Colonic diverticulosis is noted with out evidence of acute diverticulitis. The bladder and rectum are normal. No free intraperitoneal fluid or air is evid ent. There is no significant retroperitoneal lymphadenopathy. The lower thoracic and lumbar vertebrae are in normal alignment. IMPRESSION: No acute abnormality is noted in the abdomen and pelvis. Colonic diverticulosis without evidence of acute diverticulitis. All CT scans at this facility are performed using low dose modulation techniqu es as appropriate to perform exam including the following: automated exposure c ontrol; use of iterative reconstruction technique; adjustment of the mA and/or kV according to patient size (this includes techniques or standardized protocol s for targeted exams where dose is matched to indication/reason for exam)
--- NOTE | ~2025-09-26 | XR_ITS ---
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 Technique: 2 views obtained. Findings: The lungs are clear, no effusion. No pneumothorax. Heart is normal size. Mediastinal and hilar contours are within normal limits. Bony thorax no acute abnormality. Impression: No acute cardiopulmonary abnormality. Reviewed, dictated and finalized at location P. ICAL ADMINISTRATOR Impression: No acute cardiopulmonary abnormality.
--- NOTE | 2025-09-26 17:07 | ECG_ITS ---
Test Date: 2025-09-26 17:14:07 Measurements Intervals [place] Rate: 56 P: 78 DE: 172 QRS: 25 QRSD: 86 T: 47 QT: 435 QTc: 420 Interpretive Statements SINUS BRADYCARDIA No previous ECG available for comparison Electronically Signed On 09-26-2025 22:30:58 IRONER by Reinier Borrego D.O
[2025-09-26 17:08] VITALS: BP 124/64; PULSE 59; RESP 18; TEMP 36.6; O2SAT 100
[2025-09-26 17:26] LABS: Hematocrit 35.4 % (37.0-47.0); Hemoglobin 11.8 g/dL (12.0-15.0); Immature Granulocyte Percent A 0.2 % (0-0.5); Lymphocytes Absolute Auto 2.62 K/mm3 (0.9-3.2); Mean Corpuscular HGB Conc 33.3 g/dl (32-36); Mean Corpuscular Hemoglobin 32.2 pg (26-34); Mean Corpuscular Volume 96.7 fl (80-100); Nucleated Red Blood Cells Absolute Auto 0.000 K/mm3 (0.0-0.012); Nucleated Red Blood Cells Perc 0.0 % (0.0-0.2); Platelet Count Result 372 k/mm3 (150-375); Red Blood Count 3.66 M/mm3 (4.2-5.4); White Blood Count 8.1 K/mm3 (4.5-10.0)
[2025-09-26 17:36] LABS: INR 1.1; Prothrombin Time 14.3 Seconds (11.1-14.7)
[2025-09-26 17:37] LABS: Partial Thromboplastin Time 46.2 Seconds (22.3-36.8)
[2025-09-26 17:42] LABS: Alanine Aminotransferase 15 U/L (6-35); Albumin Level 4.6 g/dL (3.5-5.1); Alkaline Phosphatase 65 U/L (38-126); Anion Gap 7 mmol/L (4-12); Aspartate Amino Transferase 33 U/L (14-36); Bilirubin,Total 0.4 mg/dL (0.2-1.3); Blood Urea Nitrogen 20 mg/dL (7-17); Calcium 9.4 mg/dL (8.4-10.2); Carbon Dioxide 26 mmol/L (22-30); Chloride 97 mmol/L (98-107); Estimated CRCL calculation 31 ml/min; Estimated Glomerular Filt Rate 46; Glucose 126 mg/dL (65-110); Lipase 226 U/L (23-300); Potassium 4.0 mmol/L (3.4-5.0); Sodium 130 mmol/L (137-145); Total Protein 7.9 g/dL (6.3-8.2)
[2025-09-26 17:49] LABS: Troponin I < 0.012 ng/mL (0.000-0.034)
--- NOTE | 2025-09-26 18:38 | ED_ITS ---
HPI - SOB/Dyspnea General Chief Complaint: Shortness of Breath/Dyspnea <Trista Chau PA-C - Last Filed: 09/27/25 12:39> Stated Complaint: dyspnea <LUCILA Sams Last Filed: 09/27/25 12:39> Time Seen by Provider: 09/26/25 18:38 <LUCILA Sams Last Filed: 09/27/25 12:39> Focused HPI: This is a 79 year old female that presents to the ER for epigastric pain. She was sitting and eating when the pain started. Reports associated shortness of breath. Ongoing over the last couple of hours. Denies nausea, vomiting. Reports lightheadedness. Reports history of hypertension, hyperlipidemia. GENERAL: Well-appearing, well-nourished, and in no acute distress. HEAD: Normocephalic, atraumatic. CHEST: Clear to auscultation. ?No respiratory distress. HEART: Regular rate and rhythm.? NEURO: ?Alert and oriented x3. Patient screened in triage and initial orders placed.? ?Additional care and disposition to be based upon?diagnostic testing and treatment. <Trista Chau PA-C - Last Filed: 09/27/25 12:39> Focused HPI: This is a 79 year old female that presents to the ER for epigastric pain. She was sitting and eating when the pain started. Reports associated shortness of breath. Ongoing over the last couple of hours. Denies nausea, vomiting. Reports lightheadedness. Reports history of hypertension, hyperlipidemia. GENERAL: Well-appearing, well-nourished, and in no acute distress. HEAD: Normocephalic, atraumatic. CHEST: Clear to auscultation. ?No respiratory distress. HEART: Regular rate and rhythm.? NEURO: ?Alert and oriented x3. Patient screened in triage and initial orders placed.? ?Additional care and disposition to be based upon?diagnostic testing and treatment. <Jessica Graham PA-C - Last Filed: 09/27/25 01:53> Source: patient <LUCILA Lee Last Filed: 09/27/25 01:53> Mode of arrival: ambulatory <LUCILA Lee Last Filed: 09/27/25 01:53> Limitations: no limitations <LUCILA Lee Last Filed: 09/27/25 01:53> History of Present Illness HPI Narrative: Agree with above HPI. States more severe pain lasted for approx 10 minutes. Denies feeling short of breath currently, but does c/o persistent pain in her upper abdomen. Denies previous cardiac history. Does not see a building inspection engineer. <LUCILA Lee Last Filed: 09/27/25 01:53> Related Data Home Medications: Home Medications ?Medication ?Instructions ?Recorded ?Confirmed ?Last Taken ?Type ascorbic acid (vitamin C) 1,000 mg 1 g PO DAILY 09/05/25 Unknown History capsule cholecalciferol (vitamin D3) 50 50 mcg PO DAILY 09/05/25 Unknown History mcg (2,000 unit) capsule cyanocobalamin (vitamin B-12) 1,000 mcg PO DAILY 06/1309/05/25 Unknown History 1,000 mcg capsule turmeric 400 mg capsule mg PO 06/13/24 09/05/25 Unkn own History <LUCILA Sams Last Filed: 09/27/25 12:39> Allergies/Adverse Reactions: Allergies Allergy/AdvReac Type Severity Reaction Status Date / Time adhesive Allergy Mild Rash Verified 09/11/25 10:33 benoxinate Allergy Mild UNKNOWN Verified 09/05/25 11:52 fluorescein Allergy Mild UNKNOWN Verified 09/05/25 11:52 gemfibrozil Allergy Mild PATIENT Verified 09/05/25 11:52 COULDN'T REMEMBER iodine Allergy Mild Swelling Verified 09/05/25 11:52 iodine Allergy Mild Swelling Verified 09/05/25 11:52 latex Allergy Mild Rash Verified 09/05/25 11:52 potassium iodide Allergy Mild Swelling Verified 09/05/25 11:52 potassium iodide Allergy Mild Swelling Verified 09/05/25 11:52 prochlorperazine Allergy Unknown Muscle Verified 09/05/25 11:52 Spasms <LUCILA Sams Last Filed: 09/27/25 12:39> Review of Systems 2 Review of Systems: All systems reviewed & are unremarkable except as noted in HPI. <Jessica Graham PA-C - Last Filed: 09/27/25 01:53> All systems reviewed & are unremarkable except as noted in HPI and below < Jessica Graham PA-C - Last Filed: 09/27/25 01:53> [facility] Past Medical History Medical History: Medical History Constipation Right lower quadrant pain Stage 3 chronic kidney disease Screening mammogram, encounter for HSV-2 infection Cobalamin deficiency (~10/22/21) Pneumococcal vaccine administered Depression with anxiety Obstructive sleep apnea Presence of neurostimulator in her back in the past. Normal colonoscopy (~2007) Asthma Lumbar disc disease Ulcer Hyperlipidemia Hypertension Sleep apnea this not use a CPAP. Hypothyroidism Pre-diabetes <Trista Chau PA-C - Last Filed: 09/27/25 12:39> Surgical History Surgical History: Surgical History History of colposcopy H/O: hysterectomy (~1990) FLOWER BSO - ovarian cyst H/O cataract extraction 2016 History of bladder suspension procedure x5 / Transabdominal Fascial sling History of lumpectomy <Trista Chau PA-C - Last Filed: 09/27/25 12:39> Family History Family History: Family History Mother Asthma Cerebrovascular accident Congestive heart failure Sibling Diabetes mellitus Father Kidney disorder, Onset Age: 60 Other Depression Family history of coronary artery disease Family history of thyroid disease Hypertension <Trista Chau PA-C - Last Filed: 09/27/25 12:39> Social History Social History: Social History Social History: the patient is . 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 She is a lifelong nonsmoker nondrinker. She is and her ex- has . Patient decided to be a full code once we discussed the code status. No illicit drug use. Her oldest daughter is the durable power doctor naturopathic for healthcare. Smoking status: Never smoker Second hand tobacco smoke exposure: No Alcohol intake: never Substance use: current Substance use type: marijuana Other substance usage details: medical marijuana gummies nightly Do You Feel Safe in your Home?: Yes Lack of Transportation: No Lack of Food: Never True Current Housing: I Have Housing Concerned About Future Housing: No Difficulty Paying Gas/Electric Bills: No Difficulty Paying for Meds: No Currently Unemployed: No Education: High School Diploma/GED Difficulty w/ Childcare or Family Care: No Living arrangements: alone Additional living arrangements comments: Occupation/Education: retired Gender identity (if verbalized by the patient): Female Sexual Orientation (if Verbalized by the Patient): Straight or Heterosexual Spiritual care concerns: No Agree to blood products: Yes <Trista Chau PA-C - Last Filed: 09/27/25 12:39> Exam 2 Narrative: GENERAL: Well appearing, well-nourished, non-toxic, in no acute distress. HEAD: Normocephalic, atraumatic. RESPIRATORY: Airway patent, respirations nonlabored. Clear to auscultation bilaterally, no rales, rhonchi, wheezing. No focal lung sounds. CARDIOVASCULAR: Regular rate and rhythm without murmurs, rubs, or gallops. ABDOMINAL: Soft, Mild diffuse discomfort throughout abdomen with any palpation, more focal tenderness in epigastric region. No rebound. No pulsatile mass. Nondistended. Normoactive BS. MUSCULOSKELETAL: Moves all extremities. No gross deformities. No peripheral edema. SKIN: Warm, dry, normal color. NEURO: A&O X3. Speech clear. Cranial nerves II-XII grossly intact. Steady gait. No ataxic movements. PSYCHIATRIC: Appropriate mood and affect. Normal interaction. <Jessica Graham PA-C - Last Filed: 09/27/25 01:53> Course Vital Signs Vital signs: Vital Signs Temperature 98 F 09/26/25 17:08 Pulse Rate 59 L 09/26/25 17:08 Respiratory Rate 18 09/26/25 17:08 Blood Pressure 124/64 09/26/25 17:08 Pulse Oximetry 100 09/26/25 17:08 Temperature 98 F 09/26/25 17:08 Pulse Rate 78 09/26/25 23:32 Respiratory Rate 20 09/26/25 23:32 Blood Pressure 132/84 09/26/25 23:32 Pulse Oximetry 98 09/26/25 23:32 Oxygen Delivery Room Air 09/26/25 19:52 <Trista Chau PA-C - Last Filed: 09/27/25 12:39> Vital Signs Temperature 98 F 09/26/25 17:08 Pulse Rate 59 L 09/26/25 17:08 Respiratory Rate 18 09/26/25 17:08 Blood Pressure 124/64 09/26/25 17:08 Pulse Oximetry 100 09/26/25 17:08 Temperature 98 F 09/26/25 17:08 Pulse Rate 78 09/26/25 23:32 Respiratory Rate 20 09/26/25 23:32 Blood Pressure 132/84 09/26/25 23:32 Pulse Oximetry 98 09/26/25 23:32 Oxygen Delivery Room Air 09/26/25 19:52 <Jessica Graham PA-C - Last Filed: 09/27/25 01:53> MDM - SOB/Dyspnea MDM Narrative Medical decision making narrative: Patient presented to ED with abdominal pain that began after eating lunch today, associated with shortness of breath. Vital signs stable upon arrival. Patient was noted to be bradycardic, however this is chronic for her per previous records. Denying current chest pain. EKG without concerning ST changes. Baseline troponin undetectable. BNP within normal range. Chest x-ray clear. Remainder basic laboratory studies are otherwise fairly unremarkable. Stable kidney function. Sodium slightly low at 130. Given fluids. D-dimer age adjusted normal. No signs or sx's of DVT on exam. No tachycardia/hypoxia. Denying any ongoing SOB. Low suspicion for PE. 3 HR troponin also undetectable CT of the chest/abdomen/pelvis was obtained unremarkable. No focal consolidation, pleural effusions, pneumothorax. No concerning intra-abdominal pathology. Does show mild thickening of gallbladder without evidence of acute cholecystitis. Does show diverticulosis without evidence of diverticulitis. No comment on any abnormal aortic pathology, though I am less suspicious for this as well. Personal review of images does not show any obvious aortic abnormalities. Patient given GI cocktail and Protonix. On re-evaluation, she is feeling improved. Reports pain is improved. Denies any ongoing shortness of breath. Suspect gastritis, PUD picture given overall reassuring workup here, presentation of pain immediately associated with/surrounding episode of eating, improvement with GI cocktail. Will start patient on PPI. Discussed further dietary modifications. Will refer to GI for further evaluation as needed. Also recommended close follow-up with PCP for continued management. Discussed very strict return precautions. Patient voiced understanding, is in agreement with plan. She feels comfortable going home. Discharged in stable condition. Vital signs stable at time of D/C. <Jessica Graham PA-C - Last Filed: 09/27/25 01:53> Medical Records Attestation: I reviewed the patient's medical records. <Jessica Graham PA-C - Last Filed: 09/27/25 01:53> Lab Data Attestation: I reviewed the patient's lab results. <Jessica Graham PA-C - Last Filed: 09/27/25 01:53> Result diagrams: 09/26/25 17:20 09/26/25 17:20 <Trista Chau PA-C - Last Filed: 09/27/25 12:39> Labs: Lab Results 09/26/25 09/26/25 Range/Units 17:20 20:17 WBC 8.1 (4.5-10.0) K/mm3 RBC 3.66 L (4.2-5.4) M/mm3 Hgb 11.8 L (12.0-15.0) g/dL Hct 35.4 L (37.0-47.0) % MCV 96.7 (80-100) fl MCH 32.2 (26-34) pg MCHC 33.3 (32-36) g/dl RDW 12.5 (11.5-14.5) % Plt Count 372 D (150-375) k/mm3 MPV 9.9 (7.4-10.4) fl Immature Gran % (Auto) 0.2 (0-0.5) % Neut % (Auto) 53.5 (45.5-73.1) % Lymph % (Auto) 32.2 (18.3-44.2) % [place] % (Auto) 7.2 (2.6-8.5) % Eos % (Auto) 6.0 H (0-4.4) % Baso % (Auto) 0.9 (0.2-1.2) % Lymph # (Auto) 2.62 (0.9-3.2) K/mm3 [place] # (Auto) 0.6 (0.1-0.6) K/mm3 Eos # (Auto) 0.5 H (0-0.3) K/mm3 Baso # (Auto) 0.1 (0.0-0.1) K/mm3 Abs Immat Gran (auto) 0.02 (0.00-0.031) K/mm3 Absolute Neuts (auto) 4.4 (1.3-6.7) K/mm3 Absolute Nucleated RBC 0.000 (0.0-0.012) K/mm3 Nucleated RBC % 0.0 (0.0-0.2) % PT 14.3 (11.1-14.7) Seconds INR 1.1 APTT 46.2 H (22.3-36.8) Seconds D-Dimer 0.70 H (<0.48) ug/mL Sodium 130 L (137-145) mmol/L Potassium 4.0 (3.4-5.0) mmol/L Chloride 97 L (98-107) mmol/L Carbon Dioxide 26 (22-30) mmol/L Anion Gap 7 (4-12) mmol/L BUN 20 H (7-17) mg/dL Creatinine 1.13 H (0.7-1.0) mg/dL Estim Creat Clear Calc 31 ml/min Estimated GFR 46 L (59 - ) Glucose 126 H (65-110) mg/dL Calcium 9.4 (8.4-10.2) mg/dL Total Bilirubin 0.4 (0.2-1.3) mg/dL AST 33 (14-36) U/L ALT 15 (6-35) U/L Alkaline Phosphatase 65 (38-126) U/L Troponin I < 0.012 < 0.012 (0.000-0.034) ng/mL NT-Pro-B Natriuret Pep 91 (19.9-100) pg/mL Total Protein 7.9 (6.3-8.2) g/dL Albumin 4.6 (3.5-5.1) g/dL Lipase 226 (23-300) U/L <Trista Chau PA-C - Last Filed: 09/27/25 12:39> Lab Results 09/26/25 09/26/25 Range/Units 17:20 20:17 WBC 8.1 (4.5-10.0) K/mm3 RBC 3.66 L (4.2-5.4) M/mm3 Hgb 11.8 L (12.0-15.0) g/dL Hct 35.4 L (37.0-47.0) % MCV 96.7 (80-100) fl MCH 32.2 (26-34) pg MCHC 33.3 (32-36) g/dl RDW 12.5 (11.5-14.5) % Plt Count 372 D (150-375) k/mm3 MPV 9.9 (7.4-10.4) fl Immature Gran % (Auto) 0.2 (0-0.5) % Neut % (Auto) 53.5 (45.5-73.1) % Lymph % (Auto) 32.2 (18.3-44.2) % [place] % (Auto) 7.2 (2.6-8.5) % Eos % (Auto) 6.0 H (0-4.4) % Baso % (Auto) 0.9 (0.2-1.2) % Lymph # (Auto) 2.62 (0.9-3.2) K/mm3 [place] # (Auto) 0.6 (0.1-0.6) K/mm3 Eos # (Auto) 0.5 H (0-0.3) K/mm3 Baso # (Auto) 0.1 (0.0-0.1) K/mm3 Abs Immat Gran (auto) 0.02 (0.00-0.031) K/mm3 Absolute Neuts (auto) 4.4 (1.3-6.7) K/mm3 Absolute Nucleated RBC 0.000 (0.0-0.012) K/mm3 Nucleated RBC % 0.0 (0.0-0.2) % PT 14.3 (11.1-14.7) Seconds INR 1.1 APTT 46.2 H (22.3-36.8) Seconds D-Dimer 0.70 H (<0.48) ug/mL Sodium 130 L (137-145) mmol/L Potassium 4.0 (3.4-5.0) mmol/L Chloride 97 L (98-107) mmol/L Carbon Dioxide 26 (22-30) mmol/L Anion Gap 7 (4-12) mmol/L BUN 20 H (7-17) mg/dL Creatinine 1.13 H (0.7-1.0) mg/dL Estim Creat Clear Calc 31 ml/min Estimated GFR 46 L (59 - ) Glucose 126 H (65-110) mg/dL Calcium 9.4 (8.4-10.2) mg/dL Total Bilirubin 0.4 (0.2-1.3) mg/dL AST 33 (14-36) U/L ALT 15 (6-35) U/L Alkaline Phosphatase 65 (38-126) U/L Troponin I < 0.012 < 0.012 (0.000-0.034) ng/mL NT-Pro-B Natriuret Pep 91 (19.9-100) pg/mL Total Protein 7.9 (6.3-8.2) g/dL Albumin 4.6 (3.5-5.1) g/dL Lipase 226 (23-300) U/L <Jessica Graham PA-C - Last Filed: 09/27/25 01:53> Imaging Data Attestation: I personally reviewed and interpreted this imaging study as follows: < Jessica Graham PA-C - Last Filed: 09/27/25 01:53> Radiologist's impression: ITS Impressions Chest X-Ray 09/26/25 17:29 Impression: No acute cardiopulmonary abnormality. Chest/Abdomen/Pelvis CT 09/26/25 21:32 IMPRESSION: Mild peripheral tree-in-bud opacities are present bilaterally. No focal consolidation, pleural effusions or pneumothorax. CT abdomen and pelvis with contrast: The liver parenchyma is unremarkable. No intrahepatic mass or ductal dilatation is evident. Mild thickening of the gallbladder wall is noted. The pancreas and spleen are normal in appearance. The adrenal glands are symmetric in size. Kidneys are unremarkable. No intrarenal stones.. There is no hydronephrosis. Evaluation of the stomach and bowel loops are limited due to lack of oral contrast. The appendix is normal in appearance. Colonic diverticulosis is noted without evidence of acute diverticulitis. The bladder and rectum are normal. No free intraperitoneal fluid or air is evident. There is no significant retroperitoneal lymphadenopathy. The lower thoracic and lumbar vertebrae are in normal alignment. IMPRESSION: No acute abnormality is noted in the abdomen and pelvis. Colonic diverticulosis without evidence of acute diverticulitis. All CT scans at this facility are performed using low dose modulation techniques as appropriate to perform exam including the following: automated exposure control; use of iterative reconstruction technique; adjustment of the mA and/or kV according to patient size (this includes techniques or standardized protocols for targeted exams where dose is matched to indication/reason for exam) <Jessica Graham PA-C - Last Filed: 09/27/25 01:53> ECG Data EKG #1: Attestation: I personally reviewed and interpreted this ECG as follows: <LUCILA Lee Last Filed: 09/27/25 01:53> ECG completion date: 09/26/25 <LUCILA Lee Last Filed: 09/27/25 01:53> ECG completion time: 17:14 <Jessica Graham PA-C - Last Filed: 09/27/25 01:53> EKG Interpretation: bradycardia (56), sinus rhythm, no ST changes and other (Baseline artifact) <Jessica Graham PA-C - Last Filed: 09/27/25 01:53> Critical Care Time Critical Care Time Critical Care Time: No <LUCILA Sams Last Filed: 09/27/25 12:39> Discharge Plan Discharge Clinical Impression: Acute epigastric pain <LUCILA Sams Last Filed: 09/27/25 12:39> Patient Disposition: Home <LUCILA Sams Last Filed: 09/27/25 12:39> Condition: Stable <LUCILA Sams Last Filed: 09/27/25 12:39> Instructions: Antibiotic Form, Gastritis (ED), Diet for Stomach Ulcers and Gastritis (ED) <LUCILA Sams Last Filed: 09/27/25 12:39> Additional Instructions: Recommend taking Protonix daily as prescribed. Avoid foods that are very greasy, spicy, acidic. Recommend avoiding NSAIDs. Limit alcohol use. Follow-up closely with your primary care doctor for further evaluation. Call office tomorrow to make appointment. Also recommend follow-up with GI as needed. Return to the ED if you experience worsening or severe pain, chest pain, difficulty breathing, unable to keep down food or drink, rectal bleeding, dark black stools, vomiting blood, persistent fevers, pain or swelling in your legs, or any other symptoms of concern. <Trista Chau PA-C - Last Filed: 09/27/25 12:39> Patient Language: [place] Islander <Trista Chau PA-C - Last Filed: 09/27/25 12:39> Prescriptions: New pantoprazole [Protonix] 40 mg tablet,delayed release (DR/EC) 40 mg PO HS 28 Days Qty: 28 0RF No Action albuterol sulfate [ProAir HFA] 90 mcg/actuation HFA aerosol inhaler 1 puff INHALATION Q4H PRN (Reason: Dyspnea) Qty: 8.5 3RF triamcinolone acetonide 0.1 % lotion 1 applic topical TID Qty: 60 1RF mometasone [Nasonex 24hr Allergy] 50 mcg/actuation spray,non-aerosol 2 spray intranasal DAILY PRN (Reason: allergy symptoms) Qty: 51 0RF Rx Instructions: administer into each nostril cholecalciferol (vitamin D3) 50 mcg (2,000 unit) capsule 50 mcg PO DAILY ascorbic acid (vitamin C) 1,000 mg capsule 1 g PO DAILY cyanocobalamin (vitamin B-12) 1,000 mcg capsule 1,000 mcg PO DAILY turmeric 400 mg capsule PO budesonide-formoterol [Symbicort] 160-4.5 mcg/actuation HFA aerosol inhaler 2 puff inhalation Q12H Qty: 10.2 0RF Linzess 145 mcg capsule 145 mcg PO QAM 30 Days Qty: 30 3RF levothyroxine [Synthroid] 88 mcg tablet 88 mcg PO DAILY Qty: 90 3RF valacyclovir 500 mg tablet See Rx Instructions .ROUTE .COMPLEX Qty: 90 1RF Dose Instruction: TAKE 1 TABLET BY MOUTH EVERY DAY Rx Instructions: TAKE 1 TABLET BY MOUTH EVERY DAY estradiol 0.5 mg tablet 0.5 mg PO .COMPLEX Qty: 90 0RF Rx Instructions: take 1 tab every other day by oral route lisinopril 10 mg tablet See Rx Instructions .ROUTE .COMPLEX Qty: 90 1RF Dose Instruction: TAKE 1 TABLET BY MOUTH DAILY Rx Instructions: TAKE 1 TABLET BY MOUTH DAILY hydrochlorothiazide 12.5 mg tablet 12.5 mg PO DAILY PRN (Reason: leg swelling) Qty: 90 3RF fenofibrate nanocrystallized 48 mg tablet See Rx Instructions .ROUTE .COMPLEX Qty: 90 1RF Dose Instruction: TAKE 1 TABLET BY MOUTH DAILY Rx Instructions: TAKE 1 TABLET BY MOUTH DAILY amlodipine 2.5 mg tablet See Rx Instructions .ROUTE .COMPLEX Qty: 90 0RF Dose Instruction: TAKE 1 TABLET BY MOUTH DAILY Rx Instructions: TAKE 1 TABLET BY MOUTH DAILY montelukast 10 mg tablet 10 mg PO DAILY Qty: 90 2RF metoprolol tartrate 25 mg tablet See Rx Instructions .ROUTE .COMPLEX Qty: 90 2RF Dose Instruction: TAKE 1 TABLET BY MOUTH DAILY Rx Instructions: TAKE 1 TABLET BY MOUTH DAILY nortriptyline 10 mg capsule 10 mg PO QHS Qty: 90 0RF <Trista Chau PA-C - Last Filed: 09/27/25 12:39> Follow-up/Referrals: Bartolo,MD Vira [Primary Care Provider, Family Practice] Jose Harrington MD [Physician, Gastroenterology] Referral Note: GI <Trista Chau PA-C - Last Filed: 09/27/25 12:39> Time of Disposition: 23:19 <Trista Chau PA-C - Last Filed: 09/27/25 12:39> 23:19 <Jessica Graham PA-C - Last Filed: 09/27/25 01:53>
[2025-09-26 19:23] LABS: NT Pro B Type Natriuretic Pept 91 pg/mL (19.9-100)
[2025-09-26 20:00] VITALS: BP 143/61; PULSE 51; RESP 12; O2SAT 98
--- NOTE | 2025-09-26 20:06 | ECG_ITS ---
Test Date: 2025-09-26 20:21:52 Measurements Intervals [place] Rate: 51 P: 52 UT: 167 QRS: 12 QRSD: 84 T: 45 QT: 443 QTc: 411 Interpretive Statements Electronically Signed On 09-26-2025 22:34:42 CANE SPLICER by Reinier Borrego D.O
--- OUTSIDE RECORDS SUMMARY | 2025-09-26 20:06 | XMS_ITS | Clinical Summary ---
Author Organization [facility] [place] [address] Address [address] [place] [address] Care Team Providers Care Reinforcing Steel Erector Name Role Phone Vira Mcfarland MD Primary Care Provider [phone] Allergies Active Allergy Reactions Criticality Noted Date [...] 017 Assessment & Plan (10/18/2017 9:03 AM MUSEUM OR ZOO DIRECTOR): Current carotid ultrasound shows no significant occlusion bilaterally.. Continue risk factor modifications for atherosclerotic vascular disease Assessment & Plan (09/06/2017 1:23 PM CDT): The patient did have left carotid stenosis in 2009 between 50-70%. There are some carotid bruit and therefore will obtain carotid duplex to rule outs progression of carotid stenosis. Dyspnea on exertion 09/06/2017 Assessment & Plan (10/18/2017 9:03 AM MUSEUM OR ZOO DIRECTOR): Likely related to deconditioning and impaired relaxation on echocardiogram. Encourage exercise regimen Assessment & Plan (09/06/2017 1:22 PM CDT): Will obtain an echocardiogram to exclude cardiac etiology for dyspnea on exertion and rule out pulmonary hypertension. Mixed hyperlipidemia 09/06/2017 Assessment & Plan (10/18/2017 9:03 AM MUSEUM OR ZOO DIRECTOR): Increase the try care from 48 mg [...] file Legal Sex Female 10:02 AM MUSEUM OR ZOO DIRECTOR Gender Identity Not on file Sexual [...] Pneumococcal vaccine 65+ (2 of 2 - PCV20 or PCV21) 08/06/2016 08/06/2015 Fall Risk Assessment 08/30/2024 08/30/2023 Covid-19 Vaccine ( season) 2025, 01/12/2021 Influenza Vaccine (#1) 2025 08/06/2015, 2013 Colon Cancer Screening-CT Colonography Discontinued Colon Cancer [...] Gender: Female Attending MD: Brooklyn Sheriff Room: [facility] 05 Note Status: Finalized [...] The scope was passed under direct vision.The [id number] was introduced through the anusand advanced to the terminal ileum. The colonoscopy was somewhat difficult due to multiple diverticula inthe colon. The patient tolerated the procedure well.The quality of the bowel preparation was evaluatedusing the BBPS ([place] Bowel Preparation Scale) withscores of: Right Colon [...] office in, please contact my office at [phone]. Attending Participation: I personally performed the entire procedure. Electronically signed by Blue Almaraz MD Blue Almaraz M.D. 08/30/2023 11:49:26 AM Number of Addenda: 0 Note Initiated On: 08/30/2023 11:13 AM Blue Almaraz MD ENDOSCOPY PROCEDUR ES Final Result from Last 3 Months or Most Recently Relevant to Health Maintenance Insurance [facility] MEDICARE MEDICARE MEDICARE [facility] HMO/PPO Address: [facility] [address] [place] [address] Advance Directives For more information, please contact: [phone] * Full Code (Latest Code Status on File) Date Activated Date Inactivated Comments 08/30/2023 9:50 AM 08/30/2023 4:39 PM Care Teams Reinforcing Steel Erector Relationship Specialty Start Date End Date Vira Mcfarland MD PCP - General Family Medicine 09/13/17
--- OUTSIDE RECORDS SUMMARY | 2025-09-26 20:06 | XMS_ITS | Encounter Summary ---
Author Organization [facility] Address [address] [place] [address] Phone Care Team Providers Care Supervisor Coal Handling Name Role Phone Oma Macario MD Primary Care Provider [phone] Vira Mcfarland MD Primary Care Provider [phone] Encounter Details Date Type Department Care Team (Late st Contact Info) Description 02/22/2012 Orders Only [facility] Scanning, Provider Social History Tobacco Use Types Packs/Day Years Used Date Smoking Tobacco: Never Assessed Comments Unknown Sex and Gender Information Value Date Recorded Sex Assigned at Not on file Legal Sex Female 10:02 AM FLOW COORDINATOR Gender Identity Not on file Sexual Orientation [...] on filedocumented in this encounter Care Teams Supervisor Coal Handling Relationship Specialty Start Date End Date Oma Macario MD [address] [place] [address] PCP - General 05/22/10 09/12/17 Vira Mcfarland MD [address] [facility] [address] [place] [address] PCP - General Family Medicine 09/13/17 documented as of this encounter
[2025-09-26] MEDS: ASPIRIN 81 MG CHEWABLE TABLET 324 MG PO (20:15)
[2025-09-26] MEDS: PANTOPRAZOLE SODIUM IV 40 MG VIAL IV PUSH (21:01)
[2025-09-26] MEDS: SODIUM CHLORIDE 0.9% IV 1,000 ML 999 ML IV CONT (21:01)
[2025-09-26] MEDS: BELLADONNA ALK/PHENOB ELIX 10 ML, MAG HYDROX/ALUMINUM HYD/SIMETH 30 ML, LIDOCAINE 2% VI... PO (21:01)
[2025-09-26 21:14] LABS: Troponin I < 0.012 ng/mL (0.000-0.034)
[2025-09-26 21:39] VITALS: BP 121/54; PULSE 65; RESP 16; O2SAT 98
[2025-09-26 23:32] VITALS: BP 132/84; PULSE 78; RESP 20; O2SAT 98
== END 2025-09-26 23:31 | disposition home or self-care (01) ==
PROVIDERS: Emergency Medicine; Physician Assistant; Emergency Provider Physician Assistant; PCP Family Medicine
DX: R10.13 Epigastric pain (principal); R06.02 Shortness of breath; I12.9 Hypertensive chronic kidney disease with stage 1 through stage 4 chronic kidney disease, or unspecified chronic kidney disease; N18.30 Chronic kidney disease, stage 3 unspecified; J45.909 Unspecified asthma, uncomplicated; E78.5 Hyperlipidemia, unspecified; E03.9 Hypothyroidism, unspecified; R73.03 Prediabetes; G47.33 Obstructive sleep apnea (adult) (pediatric); F41.8 Other specified anxiety disorders; Z90.710 Acquired absence of both cervix and uterus; Z90.79 Acquired absence of other genital organ(s); Z90.722 Acquired absence of ovaries, bilateral; Z79.899 Other long term (current) drug therapy; R00.1 Bradycardia, unspecified
CPT/HCPCS: 36415; 71046; 71250; 74176; 80053; 83690; 83880; 84484; 85025; 85380; 85610; 85730; 93005; 96361; 96374; 99284; A9270; J2470; J7030